=== PATIENT | female | born 1990 | race Hispanic/Latino ===

== ENCOUNTER 2018-02-02 04:18 | Emergency (ER) | payer BC ==
[2018-02-02 04:18] VITALS: BMI 21.7
[2018-02-02] MEDS ORDERED: Iohexol 240 (50 ml) ONE (05:05)
[2018-02-02] MEDS ORDERED: Morphine 4 mg/ml ISec IVP STA (05:23)
[2018-02-02] MEDS ORDERED: Morphine 4 mg/ml ISec ONE (05:23)
[2018-02-02 05:24] LABS: ALB/GLOB RATIO 1.4 (1.1-1.8); ALBUMIN 4.3 g/dL (3.0-4.8); ALT/SGPT 24 U/L (7-56); AST/SGOT 20 U/L (14-36); BASO # 0.01 K/mm3 (0.0-2.0); BASO % 0.4 % (0.0-3.0); BLOOD UREA NITROGEN 16 mg/dL (7-21); CALCIUM 9.4 mg/dL (8.4-10.5); EOS # 0.1 (0.0-0.7); EOS % 1.8 % (1.5-5.0); GFR AFRICAN-AMERICAN > 60; GFR NON-AFRICAN AMERICAN > 60; GRAN # 0.56 (1.4-6.5); GRAN % 19.7 % (50.0-68.0); HEMOGLOBIN 10.4 g/dL (12.0-16.0); LIPASE 42 U/L (23-300); LYMPH % 71.7 % (22.0-35.0); MEAN CELL VOLUME 66.6 fl (80.0-105.0); MEAN CORPUSCULAR HEMOGLOBIN 20.6 pg (25.0-35.0); MEAN CORPUSCULAR HGB CONC 30.9 g/dl (31.0-37.0); MONO # 0.2 (0.1-0.6); MONO % 6.4 % (1.0-6.0); PLATELET COUNT 165 10^3/uL (120.0-450.0); RBC 5.06 10^6/uL (3.5-6.1); RED CELL DISTRIBUTION WIDTH 16.8 % (11.5-14.5)
[2018-02-02 05:31] LABS: INR 1.07 (0.93-1.08); PROTHROMBIN TIME 12.3 SECONDS (9.4-12.5)
[2018-02-02 05:43] LABS: WHITE BLOOD COUNT 2.8 10^3/ul (4.5-11.0)
[2018-02-02] MEDS ORDERED: HYDROmorphone 1 mg/ml ISec IVP STA (06:38)
--- NOTE | 2018-02-02 06:52 | ED PDOC ---
Arrival/HPI - General Chief Complaint: Abdominal Pain Time Seen by Provider: 02/02/18 04:29 Historian: Patient - History of Present Illness Narrative History of Present Illness (Text): 02/02/18 06:52 27 year old female, whose past medical hsitory includes colon cancer s/p colectomy, FAP, intra-abdominal abscess, and anemia, presents to the emergency department complaining of having abdominal pain that began 4 days ago. Patient reports the pain has worsen yesterday and today. Patient also reports feeling gassy, but denies passing any gas. Patient has a normal bowel movement. Patient denies any fever, chills, chest pain, shortness of breath, nausea, vomiting, diarrhea, urinary symptoms, back pain, neck pain, headache, dizziness, or any other complaints. 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 - Pulmonary Hx Respiratory Disorders: No - Neurological Hx Neurological Disorder: No - HEENT Hx HEENT Disorder: No (WEARS RX GLASSES) - Renal Hx Renal Disorder: No - Endocrine/Metabolic Hx Endocrine Disorders: No - Hematological/Oncological Hx Blood Disorders: Yes Hx Anemia: Yes Hx Cancer: Yes (Colon Cancer) Hx Chemotherapy: Yes (PO) - Integumentary Hx Dermatological Disorder: Yes (SCAR MID ABDOMEN SX) - Musculoskeletal/Rheumatological Hx Falls: No - Gastrointestinal Hx Gastrointestinal Disorders: Yes Hx Colostomy: Yes Other/Comment: Gastritis - Genitourinary/Gynecological Hx Genitourinary Disorders: No - Psychiatric Hx Emotional Abuse: No Hx Physical Abuse: No Hx Substance Use: No - Surgical History Hx Appendectomy: Yes Other/Comment: Colostomy - Anesthesia Hx Anesthesia Reactions: No Hx Malignant Hyperthermia: No - Suicidal Assessment Feels Threatened In Home Enviroment: No Family/Social History - Physician Review Nursing Documentation Reviewed: Yes Family/Social History: No Known Family HX Smoking Status: Never Smoked Hx Alcohol Use: No Hx Substance Use: No Hx Substance Use Treatment: No Allergies/Home Meds Allergies/Adverse Reactions: Allergies No Known Allergies Allergy (Verified 05/26/16 14:18) Review of Systems - Physician Review All systems were reviewed & negative as marked: Yes - Review of Systems Constitutional: absent: Fevers, Other (Chills) Respiratory: absent: SOB Cardiovascular: absent: Chest Pain Gastrointestinal: Abdominal Pain, Other (not passing gas). absent: Stool Changes, Diarrhea, Nausea, Vomiting Genitourinary Female: absent: Dysuria, Frequency, Hematuria Musculoskeletal: absent: Back Pain, Neck Pain Neurological: absent: Headache, Dizziness Physical Exam Vital Signs Reviewed: Yes Vital Signs Temp Pulse Resp BP Pulse Ox 02/02/18 04:35 98.2 F 89 18 111/69 100 Temperature: Afebrile Blood Pressure: Normal Pulse: Regular Respiratory Rate: Normal Appearance: Positive for: Well-Appearing, Non-Toxic, Comfortable Pain Distress: None Mental Status: Positive for: Alert and Oriented X 3 - Systems Exam Head: Present: Atraumatic, Normocephalic Pupils: Present: PERRL Extroacular Muscles: Present: EOMI Conjunctiva: Present: Normal Mouth: Present: Moist Mucous Membranes Neck: Present: Normal Range of Motion Respiratory/Chest: Present: Clear to Auscultation, Good Air Exchange. No: Respiratory Distress, Accessory Muscle Use Cardiovascular: Present: Regular Rate and Rhythm, Normal S1, S2. No: Murmurs Abdomen: No: Tenderness, Distention, Peritoneal Signs Back: Present: Normal Inspection Upper Extremity: Present: Normal Inspection. No: Cyanosis, Edema Lower Extremity: Present: Normal Inspection. No: Edema Neurological: Present: GCS=15, CN II-XII Intact, Speech Normal Skin: Present: Warm, Dry, Normal Color. No: Rashes Psychiatric: Present: Alert, Oriented x 3, Normal Insight, Normal Concentration Medical Decision Making ED Course and Treatment: 02/02/18 06:56 Impression: 27 year old female presents complaining of worsening abdominal pain that began 4 days ago. Patient reports not passing any gas, but normal bowel movements. Plan: -- CT Abd Pelvis PO & IV Contrast -- Labs -- Morphine, Zofran, Dilaudid -- Urine CUlture -- Urinalysis -- Reassess and disposition Progress Notes: 02/02/18 06:58 Case signed out to Dr. Adorno pending CT Abd Pelvis, reassessment and disposition. - Lab Interpretations Lab Results: 02/02/18 04:53 02/02/18 04:53 Lab Results 02/02/18 04:53: Sodium 145, Potassium 4.0, Chloride 106, Carbon Dioxide 26, Anion Gap 17, BUN 16, Creatinine 0.7, Est GFR ( Amer) > 60, Est GFR (Non- Af Amer) > 60, Random Glucose 98, Calcium 9.4, Total Bilirubin 0.3, AST 20, ALT 24, Alkaline Phosphatase 43, Total Protein 7.4, Albumin 4.3, Globulin 3.1, Albumin/Globulin Ratio 1.4, Lipase 42 02/02/18 04:53: PT 12.3, INR 1.07 02/02/18 04:53: WBC 2.8 L* D, RBC 5.06, Hgb 10.4 L, Hct 33.7 L, MCV 66.6 L, MCH 20.6 L, MCHC 30.9 L, RDW 16.8 H, Plt Count 165, MPV 10.0, Gran % 19.7 L, Lymph % (Auto) 71.7 H, [place] % (Auto) 6.4 H, Eos % (Auto) 1.8, Baso % (Auto) 0.4, Gran # 0.56 L, Lymph # (Auto) 2.0, [place] # (Auto) 0.2, Eos # (Auto) 0.1, Baso # (Auto ) 0.01, Neutrophils % (Manual) Pending, Lymphocytes % (Manual) Pending, Monocytes % (Manual) Pending - RAD Interpretation Radiology Orders: 02/02/18 04:45 ABD PELVIS PO & IV CONTRAST [CT] Stat - Medication Orders Current Medication Orders: Discontinued Medications Hydromorphone HCl (Dilaudid) 1 mg IVP STAT STA Stop: 02/02/18 06:39 Morphine Sulfate (Morphine) 4 mg IVP STAT STA Stop: 02/02/18 05:24 Last Admin: 02/02/18 05:31 Dose: 4 mg MAR Pain Assessment Document 02/02/18 05:31 SS (Rec: 02/02/18 05:32 SS [id number]) Pain Reassessment Is this a pain reassessment? Yes Sleep Is patient sleeping during reassessment? No Presence of Pain Presence of Pain Yes Location Upper or Lower Upper Pain Location Body Site Abdomen Description Description Constant Intensity of Pain at present 8 Pain Behavior Moaning Grasping Site Rubbing Site Restlessness IVP Administration Document 02/02/18 05:31 SS (Rec: 02/02/18 05:32 SS [id number]) Charges for Administration # of IVP Administrations 1 Ondansetron HCl (Zofran Inj) 4 mg IVP STAT STA Stop: 02/02/18 05:24 Last Admin: 02/02/18 05:31 Dose: 4 mg IVP Administration Document 02/02/18 05:31 SS (Rec: 02/02/18 05:31 SS [id number]) Charges for Administration # of IVP Administrations 1 Ondansetron HCl (Zofran Inj) 4 mg IVP STAT STA Stop: 02/02/18 06:39 - Scribe Statement The provider has reviewed the documentation as recorded by the Kwaku Medeiros Provider Scribe Attestation: All medical record entries made by the Scribe were at my direction and personally dictated by me. I have reviewed the chart and agree that the record accurately reflects my personal performance of the history, physical exam, medical decision making, and the department course for this patient. I have also personally directed, reviewed, and agree with the discharge instructions and disposition. Disposition/Present on Arrival - Present on Arrival History of DVT/PE: No History of Uncontrolled Diabetes: No Urinary Catheter: No History of Decub. Ulcer: No History Surgical Site Infection Following: None - Disposition Referrals: Mike Strauss MD [Primary Care Provider] - Follow up with primary Forms: [employer] (South Korean)
[2018-02-02] MEDS ORDERED: Sodium Chloride 0.9% 1,000 ML IV STA (07:03)
--- NOTE | 2018-02-02 07:19 | ED PDOC ---
Physical Exam - Physical Exam Narrative Physical Exam (Text): 02/02/18 09:11 General: alert/awake, GCS = 15, oriented x 3, resting in bed, uncomfortable, cooperative, interactive; mild distress due to pain Head: NC/AT EYE: PERRLA, EOMI, sclera anicteric, no nystagmus, no photophobia; wearing eyeglasses Facial: WNL Oral: uvula/tongue are midline, no exudate/lesions, no drooling/stridor, no dysphonia; intact dentitions NECK: intact ROM, no midline tenderness, no nuchal rigidity, no meningeal signs ; no step off Chest: CTA b/l, no w/r/r; no tachypenia, no accessory muscle use noted Cardiac: +S1, +S2, no m/r/r, no tachycardia Abdominal: +BS, soft/nd, diffuse mid abd tenderness, well nourished patient; no masses/rebound/guarding/rigidity; no almaraz's sign, no mcburney's point tenderness Extremities: intact ROM, strength 5/5 grossly intact in all limbs, neurovasc intact b/l; + ambulatory; reflex +2/2 BACK: no step off, no midline tenderness, NO crepitus, no gross deformities noted; Intact ROM SKIN: cap refill < 1 sec, no ulcerations, no petechiae, no rashes NEURO: CNII-XII WNL, no facial asymmetries, no slurr speech, oriented x 3 NIH stroke scale ~ 0 Psych: normal insight, normal affect; follows command with ease Vital Signs Reviewed: Yes Vital Signs Temp Pulse Resp BP Pulse Ox 02/02/18 11:56 78 20 98/40 L 99 02/02/18 07:28 98.3 F 70 20 100/68 100 02/02/18 04:35 98.2 F 89 18 111/69 100 Temperature: Afebrile Blood Pressure: Normal Pulse: Regular Respiratory Rate: Normal Appearance: Positive for: Well-Appearing, Non-Toxic, Uncomfortable Pain Distress: None Mental Status: Positive for: Alert and Oriented X 3 Medical Decision Making ED Course and Treatment: 02/02/18 07:18 Patient endorsed to me by Dr. Barksdale at 07:00, pending CT results, reassessment and disposition; pt can be dispositioned accordingly 1030am: pt is doing well, pt states dilaudid helped her with her pain, pain is now 12/1202/02/18 1155am: pt remains comfortable pt is not acute distress given pt's improved symptoms, pt is given option for possible admission for intractable abd pain or pt can be discharged home with close outpt follow up; pt opted for the later and states would prefer to be discharged home 02/02/18 1300 pt remained comfortable pt is not in any distress pt is made aware of her medical results pt is encouraged fluids pt is encouraged bland diet pt will follow up as directed pt will be discharged home Re-evaluation Time: 10:30 Reassessment Condition: Improving,but remains with symptoms - Lab Interpretations Lab Results: 02/02/18 04:53 02/02/18 04:53 Lab Results 02/02/18 04:53: Sodium 145, Potassium 4.0, Chloride 106, Carbon Dioxide 26, Anion Gap 17, BUN 16, Creatinine 0.7, Est GFR ( Amer) > 60, Est GFR (Non- Af Amer) > 60, Random Glucose 98, Calcium 9.4, Total Bilirubin 0.3, AST 20, ALT 24, Alkaline Phosphatase 43, Total Protein 7.4, Albumin 4.3, Globulin 3.1, Albumin/Globulin Ratio 1.4, Lipase 42 02/02/18 04:53: PT 12.3, INR 1.07 02/02/18 04:53: WBC 2.8 L* D, RBC 5.06, Hgb 10.4 L, Hct 33.7 L, MCV 66.6 L, MCH 20.6 L, MCHC 30.9 L, RDW 16.8 H, Plt Count 165, MPV 10.0, Gran % 19.7 L, Lymph % (Auto) 71.7 H, [place] % (Auto) 6.4 H, Eos % (Auto) 1.8, Baso % (Auto) 0.4, Gran # 0.56 L, Lymph # (Auto) 2.0, [place] # (Auto) 0.2, Eos # (Auto) 0.1, Baso # (Auto ) 0.01, Neutrophils % (Manual) 20 L, Lymphocytes % (Manual) 72 H, Monocytes % ( Manual) 7 H, Basophils % (Manual) 1, Platelet Evaluation Normal, Poikilocytosis (manual Slight, Anisocytosis (manual) Slight, Schistocytes Slight I have reviewed the lab results: Yes Interpretation: Abnormal lab values (decr WBCs) - RAD Interpretation Narrative RAD Interpretations (Text): Report Date : 02/02/2018 09:44:39 PROCEDURE: CT Abdomen and Pelvis with contrast Dictator : Augusto Herrera MD IMPRESSION: There has been a previous colectomy. Suture lines are seen in the rectosigmoid. There is a moderate amount of fecal material in the rectum. Fluid collections are seen on the left side of the pelvis measuring 2.3 x 4 cm and 1.6 x 2 cm. These were also present on the previous study. These have slightly increased in size. Radiology Orders: 02/02/18 08:19 ABD & PELVIS IV CONTRAST ONLY [CT] Stat Cupola Tapper Helper: Radiologist - Medication Orders Current Medication Orders: Discontinued Medications Hydromorphone HCl (Dilaudid) 1 mg IVP STAT STA Stop: 02/02/18 06:39 Last Admin: 02/02/18 08:03 Dose: 1 mg MAR Pain Assessment Document 02/02/18 08:03 [email or web address] (Rec: 02/02/18 08:03 [email or web address] [id number]) Pain Reassessment Is this a pain reassessment? No Sleep Is patient sleeping during reassessment? No Presence of Pain Presence of Pain Yes Pain Scale Used Pain Scale Used Numeric Location Pain Location Body Site Abdomen Description Description Constant Intensity of Pain at present 8 Pain Behavior Facial Grimacing Aggravating Factors Changing Position Alleviating Factors/Management Medication Techniques Alleviating Factors Medication IVP Administration Document 02/02/18 08:03 [email or web address] (Rec: 02/02/18 08:03 [email or web address] [id number]) Charges for Administration # of IVP Administrations 1 Hydromorphone HCl (Dilaudid) 0.5 mg IVP STAT STA Stop: 02/02/18 10:46 Last Admin: 02/02/18 11:59 Dose: 0.5 mg MAR Pain Assessment Document 02/02/18 11:59 [email or web address] (Rec: 02/02/18 12:00 [email or web address] [id number]) Pain Reassessment Is this a pain reassessment? No Sleep Is patient sleeping during reassessment? No Presence of Pain Presence of Pain Yes Pain Scale Used Pain Scale Used Numeric Location Pain Location Body Site Abdomen Description Description Constant Intensity of Pain at present 8 Pain Behavior Facial Grimacing Aggravating Factors Changing Position Alleviating Factors/Management Medication Techniques Alleviating Factors Medication IVP Administration Document 02/02/18 11:59 [email or web address] (Rec: 02/02/18 12:00 [email or web address] [id number]) Charges for Administration # of IVP Administrations 1 Sodium Chloride (Sodium Chloride 0.9%) 1,000 mls @ 999 mls/hr IV .Q1H1M STA Stop: 02/02/18 08:03 Last Admin: 02/02/18 07:11 Dose: 999 mls/hr eMAR Start Stop Document 02/02/18 07:11 SS (Rec: 02/02/18 07:11 SS [facility] [id number]) Intravenous Solution Start Date 02/02/18 Start Time 07:11 End Date 02/02/18 End time 08:11 Total Infusion Time 60 Morphine Sulfate (Morphine) 4 mg IVP STAT STA Stop: 02/02/18 05:24 Last Admin: 02/02/18 05:31 Dose: 4 mg MAR Pain Assessment Document 02/02/18 05:31 SS (Rec: 02/02/18 05:32 SS [id number]) Pain Reassessment Is this a pain reassessment? Yes Sleep Is patient sleeping during reassessment? No Presence of Pain Presence of Pain Yes Location Upper or Lower Upper Pain Location Body Site Abdomen Description Description Constant Intensity of Pain at present 8 Pain Behavior Moaning Grasping Site Rubbing Site Restlessness IVP Administration Document 02/02/18 05:31 SS (Rec: 02/02/18 05:32 SS [id number]) Charges for Administration # of IVP Administrations 1 Ondansetron HCl (Zofran Inj) 4 mg IVP STAT STA Stop: 02/02/18 05:24 Last Admin: 02/02/18 05:31 Dose: 4 mg IVP Administration Document 02/02/18 05:31 SS (Rec: 02/02/18 05:31 SS [id number]) Charges for Administration # of IVP Administrations 1 Ondansetron HCl (Zofran Inj) 4 mg IVP STAT STA Stop: 02/02/18 06:39 Last Admin: 02/02/18 07:11 Dose: 4 mg IVP Administration Document 02/02/18 07:11 SS (Rec: 02/02/18 07:11 SS [facility] [id number]) Charges for Administration # of IVP Administrations 1 - Scribe Statement The provider has reviewed the documentation as recorded by the Janaeibdelvin Esp[place] Provider Scribe Attestation: All medical record entries made by the Scribe were at my direction and personally dictated by me. I have reviewed the chart and agree that the record accurately reflects my personal performance of the history, physical exam, medical decision making, and the department course for this patient. I have also personally directed, reviewed, and agree with the discharge instructions and disposition. Disposition/Present on Arrival - Present on Arrival Any Indicators Present on Arrival: No History of DVT/PE: No History of Uncontrolled Diabetes: No Urinary Catheter: No History of Decub. Ulcer: No History Surgical Site Infection Following: None - Disposition Have Diagnosis and Disposition been Completed?: Yes Diagnosis: Abdominal pain, Constipation Disposition: HOME/ ROUTINE Disposition Time: 13:05 Patient Plan: Discharge Patient Problems: Current Active Problems Problem Status Onset Constipation Acute Abdominal pain Chronic Condition: STABLE Discharge Instructions (ExitCare): Constipation in Adults, Acute Abdomen ( Belly Pain) Print Language: AZERI Additional Instructions: Make sure to see your doctor in 1-2 days DRINK PLENTY OF FLUIDS take your medications as prescribed RETURN TO ED IF worse pain, cant breath, persistent vomiting, high fever >101- 102 for hours, altered behavior, slurr speech, facial changes, focal weakness ( arm/leg or both), unable to urinate, heavy/persistent bleeding, passing out, chest pain, or other medical emergencies Prescriptions: Ondansetron ODT [Zofran ODT] 4 mg PO TID PRN #10 odt PRN Reason: Nausea/Vomiting Sennosides/Docusate Sodium [Senna-S Tablet] 1 each PO DAILY PRN #14 tablet PRN Reason: Constipation [facility]: [facility] [[facility]] - Follow up with primary [facility] [Outside] - Follow up with primary [facility] [place] [Outside] - Follow up with primary Mike Strauss MD [Primary Care Provider] - Follow up with primary Branden Chung MD [Staff Provider] - Follow up with primary Forms: [employer] (Gambian)
[2018-02-02 07:29] VITALS: TEMP 98.3
[2018-02-02 07:49] LABS: BASOPHIL 1 % (0.0-1.0); LYMPHOCYTE 72 % (22.0-35.0); MONOCYTE 7 % (1.0-6.0); NEUTROPHIL 20 % (50.0-70.0)
[2018-02-02 07:50] LABS: PLATELET ESTIMATE NORMAL (NORMAL); POIKILOCYTOSIS SLIGHT
[2018-02-02 07:51] LABS: ANISOCYTOSIS SLIGHT; SCHISTOCYTES SLIGHT
[2018-02-02] MEDS ORDERED: Iohexol 350 MG/100 ML VIAL ONE (08:33)
--- NOTE | 2018-02-02 09:46 | CT ---
PROCEDURE: CT Abdomen and Pelvis with contrast HISTORY: mid/left lower abd pain, hx of similiar pain COMPARISON: 06/01/2016 CT TECHNIQUE: Contrast dose: 358 Radiation dose: Total exam DLP = 100 cc of Omni 350 mGy-cm. This CT exam was performed using one or more of the following dose reduction techniques: Automated exposure control, adjustment of the mA and/or kV according to patient size, and/or use of iterative reconstruction technique. FINDINGS: LOWER THORAX: Unremarkable. LIVER: Unremarkable. No gross lesion or ductal dilatation. GALLBLADDER AND BILE DUCTS: Unremarkable. PANCREAS: Unremarkable. No gross lesion or ductal dilatation. SPLEEN: Unremarkable. ADRENALS: Unremarkable. No mass. KIDNEYS AND URETERS: Unremarkable. No hydronephrosis. No solid mass. VASCULATURE: Unremarkable. No aortic aneurysm. BOWEL: There has been a previous colectomy. Suture lines are seen in the rectosigmoid. There is a moderate amount of fecal material in the rectum. Fluid collections are seen on the left side of the pelvis measuring 2.3 x 4 cm and 1.6 x 2 cm. These were also present on the previous study. These have slightly increased in size. APPENDIX: Normal appendix. PERITONEUM: Unremarkable. No free fluid. No free air. LYMPH NODES: Unremarkable. No enlarged lymph nodes. BLADDER: Unremarkable. REPRODUCTIVE: Unremarkable. BONES: No acute fracture. OTHER FINDINGS: None. IMPRESSION: There has been a previous colectomy. Suture lines are seen in the rectosigmoid. There is a moderate amount of fecal material in the rectum. Fluid collections are seen on the left side of the pelvis measuring 2.3 x 4 cm and 1.6 x 2 cm. These were also present on the previous study. These have slightly increased in size.
[2018-02-02] MEDS ORDERED: HYDROmorphone 0.5 mg/0.5 ml ISec IVP STA (10:45)
[2018-02-02 13:49] VITALS: BP 99/50; PULSE 79; RESP 18; O2SAT 97
== END 2018-02-02 13:49 | disposition home or self-care (01) ==
LOC: ED 04:18
DX: K59.00 Constipation, unspecified (principal); R10.9 Unspecified abdominal pain; D64.9 Anemia, unspecified; Z85.038 Personal history of other malignant neoplasm of large intestine; Z90.49 Acquired absence of other specified parts of digestive tract
CPT/HCPCS: 74177; 80053; 83690; 85025; 85610; 96361; 96374; 96375; 96376; 99284; J1170; J2270; J2405; J7030; Q9966; Q9967

== ENCOUNTER 2018-03-10 15:19 | Inpatient (IN) | payer BC ==
--- NOTE | 2018-03-10 16:00 | ED PDOC ---
Arrival/HPI - General Chief Complaint: Shortness Of Breath Time Seen by Provider: 03/10/18 15:23 Historian: Patient - History of Present Illness Narrative History of Present Illness (Text): 03/10/18 15:49 Pt is a 27 year old female, with PMH of colon cancer s/p colectomy (2011), FAP, intra-abdominal abscess, and anemia, who presents to the ED c/o of chest pain and cough after a possible aspiration of vomit while intubated for a procedure at [facility] 5 days ago. She had a sigmoidoscopy and dilation of a an anastamosis. Pt states she was monitored during her stay at [facility] until Monday and reports feeling better until last night. Says she now has coughing spells that make it hard for her to breath. Father is a local president consumer electronics company who auscultated her lungs and advised her to go to ED. Pt feels chilled and warmer than normal, has associated chest pain that starts retrosternal and refers down to epigastrium. Denies vomiting, urinary symptoms, neck pain, dizziness, or any other complaints. . 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 - Pulmonary Hx Respiratory Disorders: No - Neurological Hx Neurological Disorder: No - HEENT Hx HEENT Disorder: No (WEARS RX GLASSES) - Renal Hx Renal Disorder: No - Endocrine/Metabolic Hx Endocrine Disorders: No - Hematological/Oncological Hx Blood Disorders: Yes Hx Anemia: Yes Hx Cancer: Yes (Colon Cancer) Hx Chemotherapy: Yes (PO) - Integumentary Hx Dermatological Disorder: Yes (SCAR MID ABDOMEN SX) - Musculoskeletal/Rheumatological Hx Falls: No - Gastrointestinal Hx Gastrointestinal Disorders: Yes Hx Colostomy: Yes Other/Comment: Gastritis - Genitourinary/Gynecological Hx Genitourinary Disorders: No - Psychiatric Hx Emotional Abuse: No Hx Physical Abuse: No Hx Substance Use: No - Surgical History Hx Appendectomy: Yes Other/Comment: Colostomy - Anesthesia Hx Anesthesia Reactions: No Hx Malignant Hyperthermia: No - Suicidal Assessment Feels Threatened In Home Enviroment: No Family/Social History - Physician Review Nursing Documentation Reviewed: Yes Family/Social History: Unknown Family HX Smoking Status: Never Smoked Hx Alcohol Use: No Hx Substance Use: No Hx Substance Use Treatment: No Allergies/Home Meds Allergies/Adverse Reactions: Allergies No Known Allergies Allergy (Verified 03/10/18 21:49) Review of Systems - Review of Systems Constitutional: Normal, Fevers Eyes: Normal ENT: Normal Respiratory: Normal, SOB, Cough, Wheezing Cardiovascular: Normal, Chest Pain. absent: Palpitations Gastrointestinal: Normal. absent: Abdominal Pain Genitourinary Female: Normal. absent: Dysuria, Frequency, Hematuria Musculoskeletal: Normal, Back Pain. absent: Arthralgias Skin: Normal. absent: Rash Neurological: Normal Endocrine: Normal Hemo/Lymphatic: Normal Psychiatric: Normal Physical Exam Vital Signs Reviewed: Yes Vital Signs Temp Pulse Resp BP Pulse Ox 03/10/18 22:21 99.8 F H 83 17 98/59 L 03/10/18 21:21 83 17 98/59 L 98 03/10/18 17:20 87 18 113/71 97 03/10/18 15:36 99.8 F H 102 H 20 99/61 L 100 03/10/18 15:30 99 Temperature: Afebrile Blood Pressure: Hypotensive Pulse: Tachycardic Respiratory Rate: Normal Appearance: Positive for: Non-Toxic, Uncomfortable Pain Distress: Moderate Mental Status: Positive for: Alert and Oriented X 3 - Systems Exam Head: Present: Atraumatic, Normocephalic Pupils: Present: PERRL Extroacular Muscles: Present: EOMI Conjunctiva: Present: Normal Mouth: Present: Moist Mucous Membranes Neck: Present: Normal Range of Motion Respiratory/Chest: Present: Clear to Auscultation, Good Air Exchange, Wheezes, Rhonchi. No: Respiratory Distress, Accessory Muscle Use Cardiovascular: Present: Regular Rate and Rhythm, Normal S1, S2. No: Murmurs Abdomen: No: Tenderness, Distention, Peritoneal Signs Back: Present: Normal Inspection Upper Extremity: Present: Normal Inspection, Normal ROM, NORMAL PULSES. No: Cyanosis, Edema Lower Extremity: Present: Normal Inspection. No: Edema Neurological: Present: GCS=15, CN II-XII Intact, Speech Normal Skin: Present: Warm, Dry, Normal Color. No: Rashes, Diaphoretic Psychiatric: Present: Alert, Oriented x 3, Normal Insight, Normal Concentration Medical Decision Making ED Course and Treatment: 03/10/18 16:00 Impression Pt is a 27 year old female, with PMH of colon cancer s/p colectomy (2011), FAP, intra-abdominal abscess, and anemia, who presents to the ED c/o of chest pain and cough after a possible aspiration of vomit while intubated for a procedure at [facility] 5 days ago. Working Dx: aspiration PNA, PE, CA metastasis Plan labs and UA coags d-dimer CXR O2 assess and dispo Progress Note 03/10/18 16:13 d-dimer positive at 599 labs wnl (similar to last ED visit) CTA ordered however unable to get IV line; ordered changed to V/Q scan Will contact hospitalist after scan done to admit for Dr Carlos A gamble and dilaudid .5 mg ivp stat for pain and nausea V/Q scan negative for PE Pt c/o of pain around costal margin bilateral 03/10/18 21:04 Discussed case with hospital resident and Dr Alan; admit under hospitalist, dr Wallace to med/surg for aspiration pna and pleuritic pain - Lab Interpretations Lab Results: 03/10/18 16:28 03/10/18 16:28 Lab Results 03/10/18 18:05: Urine Color Yellow, Urine Appearance Clear, Urine pH 8.5, Ur Specific Wing[place] 1.010, Urine Protein Negative, Urine Glucose (UA) Negative, Urine Ketones Negative, Urine Blood Negative, Urine Nitrate Negative, Urine Bilirubin Negative, Urine Urobilinogen 1.0 H, Ur Leukocyte Esterase Negative 03/10/18 17:05: Lactate Dehydrogenase 352, Total Creatine Kinase < 20 L, Troponin I < 0.01 03/10/18 16:28: Sodium 140, Chloride 100, Potassium 4.3, Carbon Dioxide 27, Anion Gap 17, BUN 8, Creatinine 0.7, Est GFR ( Amer) > 60, Est GFR (Non- Af Amer) > 60, Random Glucose 91, Calcium 9.8, Phosphorus 4.2, Magnesium 1.8, Total Bilirubin 0.9, AST 15, ALT 21, Alkaline Phosphatase 55, Total Protein 8.1 , Albumin 4.2, Globulin 3.8, Albumin/Globulin Ratio 1.1 03/10/18 16:28: pO2 55, VBG pH 7.39, VBG pCO2 52.0, VBG HCO3 31.5 H, VBG Total CO2 33.1 H, VBG O2 Sat (Calc) 89.2 H, VBG Base Excess 5.2 H, VBG Potassium 4.3, Sodium 138.0, Chloride 104.0, Glucose 89, Lactate 1.1, FiO2 21.0, Venous Blood Potassium 4.3 03/10/18 16:28: PT 13.7 H, INR 1.20 H, APTT 33.5, D-Dimer, Quantitative 599 H 03/10/18 16:28: WBC 3.0 L, RBC 4.67, Hgb 10.7 L, Hct 33.2 L, MCV 71.1 L D, MCH 22.9 L, MCHC 32.2, RDW 20.7 H, Plt Count 211, MPV 9.9, Gran % 48.2 L, Lymph % ( Auto) 41.9 H, Bulloch % (Auto) 6.6 H, Eos % (Auto) 3.0, Baso % (Auto) 0.3, Gran # 1.45, Lymph # (Auto) 1.3, Bulloch # (Auto) 0.2, Eos # (Auto) 0.1, Baso # (Auto) 0.01 I have reviewed the lab results: Yes (d-dimer 599) Interpretation: Abnormal lab values - RAD Interpretation Narrative RAD Interpretations (Text): 03/10/18 18:26 HISTORY: Wheezing COMPARISON: 02/25/2014 TECHNIQUE: Chest PA and lateral FINDINGS: LUNGS: No active pulmonary disease. PLEURA: No significant pleural effusion identified. No pneumothorax apparent. CARDIOVASCULAR: Normal. OSSEOUS STRUCTURES: No significant abnormalities. VISUALIZED UPPER ABDOMEN: Normal. OTHER FINDINGS: None. IMPRESSION: No active disease. No significant interval change compared to the prior examination(s). 03/10/18 20:38 EXAM: NM Lung Perfusion and Ventilation Scan CLINICAL HISTORY: 27 years old, female; Pain; Chest pain; On breathing; Additional info: R/O pe TECHNIQUE: Nuclear Medicine ventilation and perfusion images of the lungs were obtained in multiple projections following radiopharmaceutical inhalation followed by injection of Tc99m MAA. COMPARISON: DX - CHEST TWO VIEWS (PA/LAT) 2018-03-10 16:53 FINDINGS: Ventilation: Accumulation of tracer centrally consistent with artifact. No ventilation defects. Perfusion: Unremarkable. No perfusion defects. IMPRESSION: No acute findings or significant abnormalities to suggest PE. Low probability study. Radiology Orders: 03/10/18 16:04 CXR [CHEST TWO VIEWS (PA/LAT)] [RAD] Stat 03/10/18 17:50 LUNG PERF & VENT SCAN [NM] Stat - EKG Interpretation Interpreted by ED Physician: Yes (NSR with no ST-or T-wave abnormailties; Rate 95) - Medication Orders Current Medication Orders: Albuterol/Ipratropium (Duoneb 3 Mg/0.5 Mg (3 Ml) Ud) 3 ml IH Q2H PRN PRN Reason: Shortness of Breath Albuterol/Ipratropium (Duoneb 3 Mg/0.5 Mg (3 Ml) Ud) 3 ml IH [id number] EKTA Enoxaparin Sodium (Lovenox) 40 mg SC DAILY EKTA PRN Reason: Protocol Guaifenesin/Codeine Phosphate (Robitussin W/Codeine) 5 ml PO Q4H PRN PRN Reason: Cough and congestion Azithromycin 250 mg/ Sodium (Chloride) 250 mls @ 167 mls/hr IVPB DAILY EKTA PRN Reason: Protocol Last Admin: 03/10/18 22:30 Dose: 167 mls/hr eMAR Start Stop Document 03/10/18 22:30 IT (Rec: 03/10/18 22:30 IT [id number]) Intravenous Solution Start Date 03/10/18 Start Time 22:30 Ondansetron HCl (Zofran Inj) 4 mg IVP Q6H PRN PRN Reason: Nausea/Vomiting Pantoprazole Sodium (Protonix Ec Tab) 40 mg PO 0600 EKTA Discontinued Medications Hydromorphone HCl (Dilaudid) 0.5 mg IVP STAT STA Stop: 03/10/18 18:25 Last Admin: 03/10/18 18:41 Dose: 0.5 mg MAR Pain Assessment Document 03/10/18 18:41 EWO (Rec: 03/10/18 18:41 EWO [id number]) Pain Reassessment Is this a pain reassessment? No Sleep Is patient sleeping during reassessment? No Presence of Pain Presence of Pain Yes Pain Scale Used Pain Scale Used Numeric IVP Administration Document 03/10/18 18:41 EWO (Rec: 03/10/18 18:41 EWO [id number]) Charges for Administration # of IVP Administrations 1 Hydromorphone HCl (Dilaudid) 0.5 mg IVP STAT STA Stop: 03/10/18 21:14 Last Admin: 03/10/18 22:04 Dose: 0.5 mg MAR Pain Assessment Document 03/10/18 22:04 IT (Rec: 03/10/18 22:04 IT [id number]) Pain Reassessment Is this a pain reassessment? No Sleep Is patient sleeping during reassessment? No Presence of Pain Presence of Pain Yes Pain Scale Used Pain Scale Used Numeric IVP Administration Document 03/10/18 22:04 IT (Rec: 03/10/18 22:04 IT [id number]) Charges for Administration # of IVP Administrations 1 Piperacillin Sod/Tazobactam Sod (Zosyn 3.375 In Ns 100ml) 100 mls @ 200 mls/hr IVPB STAT STA PRN Reason: Protocol Stop: 03/10/18 17:59 Last Admin: 03/10/18 18:11 Dose: 200 mls/hr eMAR Start Stop Document 03/10/18 18:11 EWO (Rec: 03/10/18 18:12 EWO [id number]) Intravenous Solution Start Date 03/10/18 Start Time 18:12 End Date 03/10/18 End time 18:42 Total Infusion Time 30 Sodium Chloride (Sodium Chloride 0.9%) 500 mls @ 999 mls/hr IV .Q31M STA Stop: 03/10/18 19:13 Last Admin: 03/10/18 20:36 Dose: 999 mls/hr eMAR Start Stop Document 03/10/18 20:36 IT (Rec: 03/10/18 20:37 IT [id number]) Intravenous Solution Start Date 03/10/18 Start Time 20:37 Ondansetron HCl (Zofran Inj) 4 mg IVP STAT STA Stop: 03/10/18 18:24 Last Admin: 03/10/18 18:41 Dose: 4 mg IVP Administration Document 03/10/18 18:41 EWO (Rec: 03/10/18 18:41 EWO [id number]) Charges for Administration # of IVP Administrations 1 Ondansetron HCl (Zofran Tab) 4 mg PO Q8H PRN PRN Reason: Nausea/Vomiting Pneumococcal Polyvalent Vaccine (Pneumovax 23 Vaccine) 0.5 ml IM .ONCE ONE Stop: 03/10/18 22:41 Disposition/Present on Arrival - Present on Arrival Any Indicators Present on Arrival: Yes History of DVT/PE: No History of Uncontrolled Diabetes: No Urinary Catheter: No History of Decub. Ulcer: No History Surgical Site Infection Following: None - Disposition Have Diagnosis and Disposition been Completed?: Yes Diagnosis: Aspiration pneumonia due to inhalation of vomitus, Pleuritic chest pain Disposition: HOSPITALIZED Disposition Time: 21:08 Patient Plan: Admission Patient Problems: Current Active Problems Problem Status Onset Aspiration pneumonia due to inhalation of vomitus Acute Pleuritic chest pain Acute Condition: FAIR
[2018-03-10 16:40] LABS: BASO # 0.01 K/mm3 (0.0-2.0); BASO % 0.3 % (0.0-3.0); EOS # 0.1 (0.0-0.7); GRAN # 1.45 (1.4-6.5); GRAN % 48.2 % (50.0-68.0); HEMOGLOBIN 10.7 g/dL (12.0-16.0); LYMPH # 1.3 (1.2-3.4); LYMPH % 41.9 % (22.0-35.0); MEAN CELL VOLUME 71.1 fl (80.0-105.0); MEAN CORPUSCULAR HEMOGLOBIN 22.9 pg (25.0-35.0); MEAN CORPUSCULAR HGB CONC 32.2 g/dl (31.0-37.0); MEAN PLATELET VOLUME 9.9 fl (7.0-11.0); MONO # 0.2 (0.1-0.6); MONO % 6.6 % (1.0-6.0); RBC 4.67 10^6/uL (3.5-6.1); RED CELL DISTRIBUTION WIDTH 20.7 % (11.5-14.5)
[2018-03-10 16:41] LABS: VENOUS BLOOD GAS BASE EXCESS 5.2 mmol/L (0.0-2.0); VENOUS BLOOD GAS PO2 55 mm/Hg (30-55); VENOUS BLOOD PH 7.39 (7.32-7.43)
[2018-03-10 16:49] LABS: INR 1.2 (0.93-1.08); PARTIAL THROMBOPLASTIN TIME 33.5 Seconds (25.1-36.5); PROTHROMBIN TIME 13.7 SECONDS (9.4-12.5)
[2018-03-10 16:55] LABS: ALB/GLOB RATIO 1.1 (1.1-1.8); ALBUMIN 4.2 g/dL (3.0-4.8); ALT/SGPT 21 U/L (7-56); AST/SGOT 15 U/L (14-36); BLOOD UREA NITROGEN 8 mg/dL (7-21); CALCIUM 9.8 mg/dL (8.4-10.5); GFR AFRICAN-AMERICAN > 60; GFR NON-AFRICAN AMERICAN > 60
[2018-03-10] MEDS ORDERED: Piperacillin/Tazobact 3.375 gm 100 ML IVPB STA (17:30)
[2018-03-10 17:38] LABS: TROPONIN I < 0.01 ng/mL
--- NOTE | 2018-03-10 17:49 | RAD ---
HISTORY: Wheezing COMPARISON: 02/25/2014 TECHNIQUE: Chest PA and lateral FINDINGS: LUNGS: No active pulmonary disease. PLEURA: No significant pleural effusion identified. No pneumothorax apparent. CARDIOVASCULAR: Normal. OSSEOUS STRUCTURES: No significant abnormalities. VISUALIZED UPPER ABDOMEN: Normal. OTHER FINDINGS: None. IMPRESSION: No active disease. No significant interval change compared to the prior examination(s).
[2018-03-10 18:23] LABS: PH,URINE 8.5 (4.7-8.0); URINE BILIRUBIN NEGATIVE (NEGATIVE); URINE BLOOD NEGATIVE (NEGATIVE); URINE GLUCOSE (UA) NEGATIVE (NEGATIVE); URINE LEUKOCYTE ESTERASE NEGATIVE Leu/uL (NEGATIVE); URINE PROTEIN NEGATIVE mg/dL (<30 mg/dL)
[2018-03-10 18:24] LABS: URINE APPEARANCE CLEAR (CLEAR); URINE COLOR YELLOW (YELLOW)
[2018-03-10] MEDS ORDERED: HYDROmorphone 0.5 mg/0.5 ml ISec IVP STA ×2 (18:24→21:13)
[2018-03-10] MEDS ORDERED: Sodium Chloride 0.9% 500 ML IV STA (18:43)
[2018-03-10] MEDS ORDERED: guaiFENesin-Codeine 100-10mg/5ml Syrup (5 ml) UD PO PRN (21:49)
[2018-03-10] MEDS ORDERED: Albuterol-Ipratrop 3 mg / 0.5 (3 ml) UD IH PRN (21:49)
[2018-03-10] MEDS ORDERED: Azithromycin 250 MG in Sodium Chloride 0.9% 250 ML IVPB SCH (22:00)
--- NOTE | 2018-03-10 22:24 | CP.PCM.HP ---
<Mati Edmonds - Last Filed: 03/11/18 06:10> History of Present Illness - History of Present Illness History of Present Illness: Mati Edmonds, PGY-1 History and Physical for Hospitalist Service, Dr. Leonides Alan CC: Shortness of Breath HPI: Patient is a 27 year old Female with a past medical history of colon cancer s/p colectomy, Familial Adenomatous Polyposis, and anemia who presented to [place] [facility] with complaints of a painful cough since this morning. The cough is severe and is associated with chest pain, which makes it difficult for her to breathe fully. The pain radiates into her throat and nothing has helped alleviate the pain. Of note, patient was admitted to [facility] last week due to constipation. The patient underwent a colectomy in 2011 and had the reversal of the ileostomy completed in 2013. She has undergone at least 3 previous dilations of her anastamosis at [facility] for bouts of constipation in the past. During the dilation process at [facility] this past week, patient was told "she aspirated while under anesthesia", which caused shortness of breath, wheezing and coughing. At this time, patient admits to nausea, dry heaving, mild shortness of breath, productive green phlegm since this morning, which has not decreased in severity. Patient denies fevers, chills, vision changes, sick contacts, postnasal drip, and watery eyes. 12 point review of systems negative other than stated above. 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, socially drinks FamHx: Mother with FAP, Father with HTN and Parkinsons, maternal grandmother with RA Present on Admission - Present on Admission Any Indicators Present on Admission: No Review of Systems - Review of Systems All systems: reviewed and no additional remarkable complaints except (HPI) 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 - PULMONARY Hx Respiratory Disorders: No - NEUROLOGICAL Hx Neurological Disorder: No - HEENT Hx HEENT Problems: No (WEARS RX GLASSES) - RENAL Hx Chronic Kidney Disease: No - ENDOCRINE/METABOLIC Hx Endocrine Disorders: No - HEMATOLOGICAL/ONCOLOGICAL Hx Blood Disorders: Yes Hx Anemia: Yes Hx Cancer: Yes (Colon Cancer) Hx Chemotherapy: Yes (PO) - INTEGUMENTARY Hx Dermatological Problems: Yes (SCAR MID ABDOMEN SX) - MUSCULOSKELETAL/RHEUMATOLOGICAL Hx Falls: No - GASTROINTESTINAL Hx Gastrointestinal Disorders: Yes Hx Colostomy: Yes Other/Comment: Gastritis - GENITOURINARY/GYNECOLOGICAL Hx Genitourinary Disorders: No - PSYCHIATRIC Hx Emotional Abuse: No Hx Physical Abuse: No Hx Substance Use: No - SURGICAL HISTORY Hx Appendectomy: Yes Other/Comment: Colostomy - ANESTHESIA Hx Anesthesia Reactions: No Hx Malignant Hyperthermia: No Meds Home Medications: Home Medication List Medication Instructions Recorded Confirmed Type Albuterol HFA [Ventolin HFA 90 1 puff IH Q4H #1 inhaler 03/12/18 Rx mcg/actuation (8 g)] Amoxicillin/Clavulanate [Augmentin 1 tab PO Q12 7 Days #14 tab 03/13/18 Rx 875 MG-125 MG] Doxycycline Hyclate 100 mg PO Q12 7 Days #14 cap 03/13/18 Rx Allergies/Adverse Reactions: Allergies Allergy/AdvReac Type Severity Reaction Status Date / Time No Known Allergies Allergy Verified 03/10/18 21:49 Physical Exam - Constitutional Appears: No Acute Distress - Head Exam Head Exam: ATRAUMATIC, NORMOCEPHALIC - Eye Exam Eye Exam: EOMI, PERRL Pupil Exam: NORMAL ACCOMODATION - ENT Exam ENT Exam: Mucous Membranes Moist - Respiratory Exam Respiratory Exam: Clear to Auscultation Bilateral. absent: Rales, Wheezes - Cardiovascular Exam Cardiovascular Exam: Tachycardia, REGULAR RHYTHM, +S1, +S2 - GI/Abdominal Exam GI & Abdominal Exam: Normal Bowel Sounds, Soft, Tenderness. absent: Distended Additional comments: Mild R sided tenderness, Midline incision scar - Extremities Exam Extremities exam: Negative for: calf tenderness, pedal edema - Neurological Exam Neurological exam: Alert, CN II-XII Intact, Oriented x3 - Psychiatric Exam Psychiatric exam: Normal Mood - Skin Skin Exam: Dry, Intact, Warm Results - Vital Signs Recent Vital Signs: Last Vital Signs Temp 99.8 F H 07/07/18 15:36 Pulse 83 03/10/18 21:21 Resp 17 03/10/18 21:21 BP 98/59 L 03/10/18 21:21 Pulse Ox 98 03/10/18 21:21 - Labs Result Diagrams: 03/10/18 16:28 03/10/18 16:28 Assessment & Plan - Assessment and Plan (Free Text) Assessment: 27 year old Female with a past medical history of colon cancer s/p colectomy, Familial Adenomatous Polyposis, and anemia who presented to [place] [facility] with complaints of shortness of breath with associated cough x1 day likely 2/2 to bronchitis with acute bronchospasm. 1. SOB with cough likely 2/2 to bronchitis with acute bronchospasm vs PNA of unclear etiology - In the ED, patient was given zosyn, dilaudid, and 1 L NS - Duonebs schedule Q6H and Q2H prn - Azithromycin x1 then DC'ed - Patient put on broad spectrum coverage Vanc and Zosyn. - Robitussin for cough as needed - Follow up septic w/u - Blood cx, sputum cx, procal, UA neg - pulm consulted for recs - CT sinus negative - CT chest - patchy opacities throughout R lung and LLL concerning for multifocal infection. - f/u Legionella urine and Mycoplasma IgM for atypical presentations - f/u ID consult recs of Dr. Lee - f/u Pulm consult recs - V/Q scan- low probabality , elevated d-dimer 599 - CXR - neg - EKG shows NSR 95 BPM - Follow up ABG - Morning labs - Zofran for nausea as needed. Pain medication on board - Liquid diet- advance as tolerated 2. GI/DVT ppx - protonix and Lovenox sc Patient was seen, case reviewed, and plan discussed in detail with Dr. Leonides Alan. Mati Edmonds, PGY-1 <Ashley Alan - Last Filed: 03/14/18 22:35> Results - Vital Signs Recent Vital Signs: Last Vital Signs Temp 96.7 F L 03/13/18 13:32 Pulse 71 03/13/18 13:32 Resp 14 03/13/18 13:32 BP 97/64 L 03/13/18 13:32 Pulse Ox 97 03/13/18 13:32 - Labs Result Diagrams: 03/13/18 09:45 03/13/18 09:45 Labs: Laboratory Results - last 24 hr 03/11/18 08:00 Mycoplasma pneumon IgG 5.00 H Mycoplasma pneumon IgM 632
[2018-03-10 22:40] VITALS: BMI 22.1
[2018-03-10] MEDS ORDERED: Pneumococcal 23-Valent Vaccine IM ONE (22:40)
[2018-03-11] MEDS ORDERED: Docusate-Senna 50 mg-8.6 mg Tab PO PRN (00:09)
[2018-03-11] MEDS ORDERED: Vancomycin 1gm in NS 250ml 1 GM/250 ML BAG IVPB SCH (00:30)
[2018-03-11] MEDS: Morphine 2 mg/2 mL syringe IVP PRN ×5 (00:32→15:49)
[2018-03-11] MEDS ORDERED: HYDROmorphone 0.5 mg/0.5 ml ISec IVP STA ×2 (01:29→22:27)
[2018-03-11] MEDS: Albuterol-Ipratrop 3 mg / 0.5 (3 ml) UD IH SCH ×4 (01:50→19:53)
[2018-03-11] MEDS: Pantoprazole 40 mg EC Tab PO SCH (05:51)
[2018-03-11] MEDS ORDERED: Piperacill/Tazo 4.5gm in NS 4.5 GM/100 ML BAG IVPB SCH (06:00)
[2018-03-11 08:13] LABS: BASO # 0.01 K/mm3 (0.0-2.0); BASO % 0.3 % (0.0-3.0); EOS # 0.1 (0.0-0.7); EOS % 3.7 % (1.5-5.0); GRAN # 1.03 (1.4-6.5); GRAN % 34.2 % (50.0-68.0); HEMOGLOBIN 9.2 g/dL (12.0-16.0); LYMPH # 1.6 (1.2-3.4); LYMPH % 53.8 % (22.0-35.0); MEAN CORPUSCULAR HEMOGLOBIN 22.8 pg (25.0-35.0); MEAN CORPUSCULAR HGB CONC 32.2 g/dl (31.0-37.0); MEAN PLATELET VOLUME 9.2 fl (7.0-11.0); MONO # 0.2 (0.1-0.6); RBC 4.03 10^6/uL (3.5-6.1); RED CELL DISTRIBUTION WIDTH 20.6 % (11.5-14.5)
[2018-03-11 08:21] LABS: ALB/GLOB RATIO 1.2 (1.1-1.8); ALBUMIN 3.6 g/dL (3.0-4.8); ALT/SGPT 24 U/L (7-56); AST/SGOT 13 U/L (14-36); BLOOD UREA NITROGEN 9 mg/dL (7-21); CALCIUM 9.4 mg/dL (8.4-10.5); GFR AFRICAN-AMERICAN > 60; GFR NON-AFRICAN AMERICAN > 60
--- NOTE | 2018-03-11 08:38 | CT ---
PROCEDURE: CT SINUSES WITHOUT CONTRAST HISTORY: r/o sinusitis COMPARISON: None TECHNIQUE: Contiguous axial CT images of the paranasal sinuses were obtained. Coronal and sagittal reformats were generated. Radiation dose: Total exam DLP = 678.25 mGy-cm. This CT exam was performed using one or more of the following dose reduction techniques: Automated exposure control, adjustment of the mA and/or kV according to patient size, and/or use of iterative reconstruction technique. FINDINGS: FRONTAL SINUSES: Clear. ETHMOID SINUSES: Clear. SPHENOID SINUSES: Clear. MAXILLARY SINUSES: Clear. SINUS DRAINAGE: Osteomeatal complexes, frontal recesses and sphenoethmoid recesses clear. NASAL SEPTUM: No significant deviation. No destructive lesion. MASS: None. SKULL BASE: Unremarkable. TEMPORAL BONES: Middle ears and mastoid grossly unremarkable. OTHER FINDINGS: None. IMPRESSION: Unremarkable non contrast enhanced CT of the sinuses. Concordant results (preliminary interpretation) provided by [facility]. Procedure Completed: 22:26 Preliminary ([facility]) Report: Dictated and Authenticated: 22:58 Final Interpretation: 08:38. March 11, 2018.
--- NOTE | 2018-03-11 08:45 | CT ---
PROCEDURE: CT Chest without contrast HISTORY: r/o PNA COMPARISON: March 10, 2018. Ventilation-perfusion scan. March 10, 2018. Two-view chest TECHNIQUE: Contiguous axial images were obtained through the chest without intravenous contrast enhancement. Sagittal and coronal reconstructions were performed. Radiation dose (DLP): 300.96 mGy-cm. This CT exam was performed using one or more of the following dose reduction techniques: Automated exposure control, adjustment of the mA and/or kV according to patient size, and/or use of iterative reconstruction technique. FINDINGS: LUNGS: Patchy multifocal infiltrates affecting right upper lobe, right lower lobe with relative sparing of the right middle lobe. Similar less pronounced changes in the left lung. MEDIASTINUM: Unremarkable thoracic aorta. No aneurysm. Normal sized heart. Main pulmonary artery unremarkable. No vascular congestion. No lymphadenopathy. PLEURA: No pleural fluid. No pneumothorax. BONES: No fracture. No destructive lesion. UPPER ABDOMEN: Grossly unremarkable. OTHER FINDINGS: None. IMPRESSION: Multifocal infiltrates primarily affecting right lung, to lesser extent left lung consistent with infectious/inflammatory etiologies. Concordant results (preliminary interpretation) provided by [facility]. Procedure Completed: 22:23 Preliminary ([facility]) Report: Dictated and Authenticated: 22:58 Final Interpretation: 08:43 March 11, 2018.
--- NOTE | 2018-03-11 09:03 | CARD ---
APPROVED REPORT EKG Measurement Heart [id number] <Conclusion> Normal sinus rhythm LAD RVCD LVH PRWP NSSTW changes No change except the rate is faster
--- NOTE | 2018-03-11 09:19 | NM ---
COMPARISON: March 10, 2018. Two-view chest. March 10, 2018. CT thorax TECHNIQUE: 33.7 mCi technetium 99-m DTPA aerosol. 3.6 mCI technetium 99-m MAA administered intravenously. FINDINGS: VENTILATION COMPONENT: Heterogeneous ventilation. Retention of radionuclide in the tracheobronchial tree and ingestion of radionuclide in the stomach, incidental findings PERFUSION COMPONENT: Heterogeneous distribution of radionuclide. No geographic, segmental, lobar abnormalities apparent on the present examination. IMPRESSION: Low probability ventilation perfusion scan for pulmonary embolism. Concordant results (preliminary interpretation) provided by [facility]. Procedure Completed: 19:49 Preliminary ([facility]) Report: Dictated and Authenticated: 20:29. Final Interpretation: 09:17. March 11, 2018.
[2018-03-11] MEDS: Vancomycin 1gm in NS 250ml 1 GM/250 ML BAG IVPB SCH ×2 (10:00→23:06)
[2018-03-11] MEDS: Piperacillin/Tazobact 3.375 gm 100 ML IVPB SCH ×3 (12:34→23:12)
[2018-03-11] MEDS: Enoxaparin 40 mg Syringe SC SCH ×2 (12:34→12:47)
--- NOTE | 2018-03-11 14:32 | CP.PCM.PN ---
<Valentine Poe - Last Filed: 03/11/18 16:04> Subjective - Date & Time of Evaluation Date of Evaluation: 03/11/18 Time of Evaluation: 08:30 - Subjective Subjective: Patient complained of pain overnight which was relieve after a dose of morphine injection. This morning she stated that her shortness of breath has improved. However her pain is not relieved and rates the severity +9/10. She states that morphine is not as effective and that she has been given dilaudid in the past for pain management. Admits to chronic constipation. Denies fevers, chills. Patient requests to advance her diet. Objective - Vital Signs/Intake and Output Vital Signs (last 24 hours): Temp Pulse Resp BP Pulse Ox 98.4 F 84 20 90/53 L 99 03/11/18 00:01 03/11/18 00:01 03/11/18 00:01 03/11/18 00:01 03/11/18 00:01 - Medications Medications: Current Medications Albuterol/Ipratropium (Duoneb 3 Mg/0.5 Mg (3 Ml) Ud) 3 ml IH Q2H PRN PRN Reason: Shortness of Breath Albuterol/Ipratropium (Duoneb 3 Mg/0.5 Mg (3 Ml) Ud) 3 ml IH [id number] [facility] Last Admin: 03/11/18 13:33 Dose: 3 ml Docusate Sodium (Colace) 100 mg PO TID EKTA Enoxaparin Sodium (Lovenox) 40 mg SC DAILY [facility] PRN Reason: Protocol Last Admin: 03/11/18 12:47 Dose: Not Given Guaifenesin/Codeine Phosphate (Robitussin W/Codeine) 5 ml PO Q4H PRN PRN Reason: Cough and congestion Vancomycin HCl (Vancomycin 1gm) 1 gm in 250 mls @ 167 mls/hr IVPB Q12H [facility] PRN Reason: Protocol Stop: 03/20/18 10:01 Piperacillin Sod/Tazobactam Sod (Zosyn 3.375 In Ns 100ml) 100 mls @ 200 mls/hr IVPB Q6 [facility]KTA PRN Reason: Protocol Stop: 03/19/18 12:01 Last Admin: 03/11/18 12:34 Dose: 200 mls/hr Morphine Sulfate (Morphine) 4 mg IVP Q4H PRN PRN Reason: Pain, severe (8-10) Last Admin: 03/11/18 12:29 Dose: 4 mg Ondansetron HCl (Zofran Inj) 4 mg IVP Q6H PRN PRN Reason: Nausea/Vomiting Pantoprazole Sodium (Protonix Ec Tab) 40 mg PO 0600 EKTA Last Admin: 03/11/18 05:51 Dose: 40 mg Senna/Docusate Sodium (Senokot S 50 Mg-8.6 Mg) 1 tab PO DAILY PRN PRN Reason: Constipation Last Admin: 03/11/18 05:51 Dose: 1 tab Sennosides (Senokot Tab) 8.6 mg PO BID EKTA - Labs Labs: 03/11/18 07:55 03/11/18 07:55 PT 13.7 SECONDS (9.4-12.5) H 03/10/18 16:28 INR 1.20 (0.93-1.08) H 03/10/18 16:28 APTT 33.5 Seconds (25.1-36.5) 03/10/18 16:28 - Constitutional Appears: Non-toxic, No Acute Distress - Head Exam Head Exam: ATRAUMATIC, NORMAL INSPECTION, NORMOCEPHALIC - Eye Exam Eye Exam: EOMI, Normal appearance, PERRL - ENT Exam ENT Exam: Mucous Membranes Moist, Normal Exam - Neck Exam Neck Exam: Full ROM, Normal Inspection - Respiratory Exam Respiratory Exam: Decreased Breath Sounds, NORMAL BREATHING PATTERN. absent: Respiratory Distress - Cardiovascular Exam Cardiovascular Exam: REGULAR RHYTHM, +S1, +S2 - GI/Abdominal Exam GI & Abdominal Exam: Soft, Tenderness. absent: Firm, Guarding, Rebound - Rectal Exam Rectal Exam: Deferred - Extremities Exam Extremities Exam: Normal Inspection. absent: Tenderness - Back Exam Back Exam: NORMAL INSPECTION - Neurological Exam Neurological Exam: Alert, Awake, CN II-XII Intact, Oriented x3 - Psychiatric Exam Psychiatric exam: Normal Affect - Skin Skin Exam: Dry, Intact, Normal Color, Warm Assessment and Plan - Assessment and Plan (Free Text) Assessment: 27 year old female with a past medical history of colon cancer s/p colectomy, Familial Adenomatous Polyposis, and anemia who presented with shortness of breath and cough found to have multifocal pneumonia likely secondary to aspiration pneumonia. Plan: 1. Aspiration/nosocomial pneumonia - In the ED, given zosyn, azithromycin, dilaudid, and 1 L NS - Duonebs Q6H and Q2H prn - guaiFENesin/codeine for cough - Morphine 4 mg Q4H prn - Blood cultures, sputum cultures - Legionella urine and Mycoplasma IgM - procal high - Urinalysis negative - CT sinus negative - CT chest - patchy opacities throughout right lung and to a lesser extent left lung concerning for multifocal infection - V/Q scan- low probability, elevated d-dimer 599 - CXR - negative - EKG shows normal sinus rhythm 95 beats per minute - VBG shows no hypoxemia - Zofran for nausea as needed. Pain medication on board - Pulm consulted - ID consulted. Recommends vancomycin and zosyn - Liquid diet- advance as tolerated 2. Constipation - senna, colace GI/DVT PPX Protonix Lovenox Patient was seen and discussed with Dr. Corby Poe PGY-1 <Dona Tavarez R - Last Filed: 03/11/18 16:56> Objective - Vital Signs/Intake and Output Vital Signs (last 24 hours): Temp Pulse Resp BP Pulse Ox 98.7 F 74 18 85/53 L 98 03/11/18 14:00 03/11/18 14:00 03/11/18 14:00 03/11/18 14:00 03/11/18 14:00 Intake and Output: 03/11/18 03/11/18 06:59 18:59 Intake Total 360 Balance 360 - Medications Medications: Current Medications Albuterol/Ipratropium (Duoneb 3 Mg/0.5 Mg (3 Ml) Ud) 3 ml IH Q2H PRN PRN Reason: Shortness of Breath Albuterol/Ipratropium (Duoneb 3 Mg/0.5 Mg (3 Ml) Ud) 3 ml IH [id number] [facility] Last Admin: 03/11/18 13:33 Dose: 3 ml Docusate Sodium (Colace) 100 mg PO TID [facility] Last Admin: 03/11/18 15:55 Dose: 100 mg Enoxaparin Sodium (Lovenox) 40 mg SC DAILY [facility] PRN Reason: Protocol Last Admin: 03/11/18 12:47 Dose: Not Given Guaifenesin/Codeine Phosphate (Robitussin W/Codeine) 5 ml PO Q4H PRN PRN Reason: Cough and congestion Vancomycin HCl (Vancomycin 1gm) 1 gm in 250 mls @ 167 mls/hr IVPB Q12H [facility] PRN Reason: Protocol Stop: 03/20/18 10:01 Last Admin: 03/11/18 10:00 Dose: Not Given Piperacillin Sod/Tazobactam Sod (Zosyn 3.375 In Ns 100ml) 100 mls @ 200 mls/hr IVPB Q6 [facility] PRN Reason: Protocol Stop: 03/19/18 12:01 Last Admin: 03/11/18 12:34 Dose: 200 mls/hr Morphine Sulfate (Morphine) 4 mg IVP Q4H PRN PRN Reason: Pain, severe (8-10) Last Admin: 03/11/18 15:49 Dose: 4 mg Ondansetron HCl (Zofran Inj) 4 mg IVP Q6H PRN PRN Reason: Nausea/Vomiting Pantoprazole Sodium (Protonix Ec Tab) 40 mg PO 0600 EKTA Last Admin: 03/11/18 05:51 Dose: 40 mg Senna/Docusate Sodium (Senokot S 50 Mg-8.6 Mg) 1 tab PO DAILY PRN PRN Reason: Constipation Last Admin: 03/11/18 05:51 Dose: 1 tab Sennosides (Senokot Tab) 8.6 mg PO BID EKTA - Labs Labs: 03/11/18 07:55 03/11/18 07:55 PT 13.7 SECONDS (9.4-12.5) H 03/10/18 16:28 INR 1.20 (0.93-1.08) H 03/10/18 16:28 APTT 33.5 Seconds (25.1-36.5) 03/10/18 16:28 Attending/Attestation - Attestation I have personally seen and examined this patient.: Yes I have fully participated in the care of the patient.: Yes I have reviewed all pertinent clinical information, including history, physical exam and plan: Yes Notes (Text): Patient seen and examined by me at 11:15AM with resident at bedside. Case including physical assessment and plan discussed with resident. Agree with above with following additions/changes. Patient is a 27-year-old female presented with shortness of breath and painful cough. Shortness of breath improved. States her cough has also improved. She states it is somewhat productive with green sputum. She complains of pain in her chest and back from coughing. States that current dosing of morphine is not helping. She is requesting Dilaudid. Patient also complains of some abdominal pain that is improving since having bowel movements. Last bowel movement was this morning. No headaches or dizziness. No nausea or vomiting.. No fevers or chills. No dysuria. No diarrhea or constipation. Physical exam: Gen: Patient is awake and alert lying in bed in no acute distress HEENT: Normocephalic atraumatic, extraocular muscles intact, pupils equal reactive, oropharynx is pink and moist, no pharyngeal erythema or exudate appreciated, neck is supple. Cardiovascular: Normal rhythm, normal S1-S2, no murmurs rubs or gallops appreciated. Pulmonary: Decreased respiratory effort secondary to coughing. Decreased breath sounds. No rhonchi, rales, or wheezing appreciated Gastrointestinal: Soft, mild generalized tenderness, nondistended, positive bowel sounds all 4 quadrants, no guarding Musculoskeletal: Moves all extremities, no calf tenderness Central nervous system: AAO 3 Dermatologic: Skin warm and dry Assessment and plan: Patient is a 27 year old female with a past medical history significant for colon cancer s/p colectomy, Familial Adenomatous Polyposis, and anemia that presented to the emergency room with shortness of breath and cough. Patient found to have multifocal pneumonia likely secondary to aspiration. 1. Multifocal pneumonia likely secondary to aspiration. ID following, recommendations appreciated. Continue on vancomycin and Zosyn. Blood cultures and sputum cultures pending. Urine for Legionella pending. Mycoplasma IgM pending. Continue guaifenesin with codeine as needed for cough. Continue pain management. Placed on IV fluids. Patient is afebrile. Pro-calcitonin elevated. Continue with nebulizer treatments. Pulmonary consulted, follow up recommendations 2. Leukopenia. Likely secondary to current infection. Continue antibiotics. Continue to monitor 3. Hypotension. May be secondary to pain medications versus infection. Placed on IV fluids. Unsure patient's baseline. Holding parameters placed on pain medications. Continue to monitor. 4. Anemia. Chronic. Downtrending H&H may be dilutional effect. Continue to monitor for now 5. History of familial adenomatosis polyposis. Patient to continue outpatient follow-up with her physician 6. History of constipation. Continue home Colace and senna Case was discussed in detail with the patient and infertility medical assistant regarding current diagnosis and treatment plan
[2018-03-11] MEDS ORDERED: Sodium Chloride 0.9% 1,000 ML IV SCH (16:45)
[2018-03-11] MEDS ORDERED: Morphine 4 mg/ml ISec IVP PRN (16:52)
[2018-03-11] MEDS ORDERED: Sodium Chloride 0.9% 500 ML IV STA (16:55)
[2018-03-11] MEDS: Sodium Chloride 0.9% 1,000 ML IV SCH (17:45)
--- NOTE | 2018-03-11 19:52 | CON ---
DATE: 03/11/2018 PULMONARY CONSULTATION REQUESTING PHYSICIAN: Dr. Wallace. CHIEF COMPLAINT: The patient presented with shortness of breath. HISTORY OF PRESENT ILLNESS: Ms. Owens, she is a 27-year-old female with a history of colon CA and status post colectomy, also familial adenomatous polyposis as well as anemia. The patient had a sigmoidoscopy last week at [facility] and during the procedure stated that she had aspirated. She developed cough with sputum and congestion and pleuritic chest pain with shortness of breath and nauseousness and heaviness in the chest. The patient on CT scan reveals bilateral infiltrates. She has no present fever, chills. No present nauseousness or vomiting. PAST MEDICAL HISTORY: As above. ALLERGIES: SHE HAS NO KNOWN ALLERGIES. CURRENT MEDICATIONS: Could be evaluated as per the nurse's intake form. SOCIAL HISTORY: Patient has no history of smoking or EtOH abuse. FAMILY HISTORY: Noncontributory. REVIEW OF SYSTEMS: CONSTITUTIONAL: All negative. HEENT: All negative. RESPIRATORY: The patient presented with shortness of breath, cough, wheezing, chest congestion. CARDIOVASCULAR: She had some pleuritic chest pain. GASTROINTESTINAL: Has a history of colon CA and a colectomy. : All negative. MUSCULOSKELETAL: All negative. NEUROPSYCHIATRIC: All negative. HEMATOLOGIC: All negative. IMMUNOLOGIC: All negative. ENDOCRINE: All negative. PHYSICAL EXAMINATION: VITAL SIGNS: Note that her temperature is 98.7, her pulse is 74, respirations are 18 and BP is 85/53, O2 saturation is 98% on room air. HEENT: Head is atraumatic, normocephalic. Eyes: Reactive to light. Ear, nose and throat: Seem to be within normal limits. NECK: Supple. No JVD. No thyroid enlargement. No lymph nodes. HEART: Has regular rate and rhythm. Normal S1, S2. LUNGS: Reveal good breath sounds bilaterally. ABDOMEN: Soft, nontender. Decreased bowel sounds. GENITALIA: Deferred. RECTAL: Deferred. MUSCULOSKELETAL: No joint deformities. EXTREMITIES: Reveal no significant edema. NEUROLOGICAL: She seemed to be grossly intact. LABORATORY DATA: Her white count is 3, hemoglobin is 9.2, hematocrit 28.6 with platelets of 172,000. The patient's sodium is 140, potassium 4.1, chloride 101, CO2 of 28 with a BUN of 9, creatinine of 0.6 and glucose of 85. As far as CT scan of the chest, it reveals multifocal infiltrates, primarily affecting the right lung, to a lesser extent the left lung consistent with inflammation/infection etiologies. IMPRESSION: This patient has bilateral pneumonia secondary to aspiration. She has a history of colon cancer and status post colectomy. She has a history of anemia. PLAN: I would continue with bronchodilators of DuoNeb and the patient is getting vancomycin with his Zosyn and she is getting Lovenox subcu. She is also getting Robitussin p.r.n. and I will continue with aggressive pulmonary toilet. Follow O2 sats closely and continue appropriate treatment for aspiration pneumonia. The patient should be followed up by her primary care doctor once discharged and continue to be followed closely for any re-exacerbations of the respiratory problem. Kishore Madrigal MD
--- NOTE | 2018-03-11 19:55 | CON ---
DATE: 03/11/2018 LOCATION: The patient was seen earlier this morning in room 565 bed 1. CHIEF COMPLAINT: Abdominal discomfort and weakness. HISTORY OF PRESENT ILLNESS This is an unfortunate 27-year-old female known to me from previous admissions and a history of familial adenomatous polyposis, anemia, colon cancer status post colectomy and who was recently admitted to [facility], had anesthesia five days ago, had a procedure with sigmoidoscopy and dilation and who was admitted now with shortness of breath, cough associated with pleuritic chest pain and low-grade fevers, no chills and the patient has some abdominal discomfort and no dysuria or frequency. PAST MEDICAL HISTORY: Significant for the familial adenomatous polyposis, anemia and colon cancer. PAST SURGICAL HISTORY: Significant for recent sigmoidoscopy and dilatation of an anastomosis; the patient also had atrial septal defect surgery as a child. The patient also had an appendectomy and had chemotherapy. ALLERGIES: THE PATIENT HAS NO KNOWN ALLERGIES. MEDICATIONS AT HOME: Include oxycodone and Zofran. PHYSICAL EXAMINATION: GENERAL: On exam, the patient is in bed, chronically ill, debilitated and weak, cachectic. VITAL SIGNS: Temperature of 99.8, heart rate of 102, respiratory rate of 20, blood pressure is 99/60. The patient's O2 saturation is at 98% saturation on room air. BMI is 22. HEENT: Examination is unremarkable. NECK: Supple. LUNGS: Have decreased breath sounds. HEART: Normal S1, S2. ABDOMEN: Soft. Mild tenderness. No rebound or guarding. No masses. DATA: Laboratory examination reveals a white count of 3000, hemoglobin of 10, MCV is 71, 48% granulocytosis. Coagulation is noted and chemistries reveals LFTs are normal. Renal function is normal. The patient's bicarb is 27 and with anion gap of 17. Sodium is normal. The patient's urinalysis is unremarkable and the patient had a CT scan of the chest, which has not been read. Chest x-ray was negative. Looking at the CAT scan of the chest, there appears to be right-sided infiltrate. The patient also had a CAT scan of the sinuses, that has not been read. The history of physical examination of Dr. Hanks is reviewed. Emergency room chart written by Aranza Reed is also reviewed. ASSESSMENT AND PLAN: This is a 27-year-old female with familial adenomatous polyposis; history of atrial septal defect, history of colon cancer, has had colectomy, more recently had a procedure for dilatation of the narrowing of the anastomosis with anesthesia and developed a questionable aspiration now presents with low-grade fevers, tachycardia, shortness of breath and cough and leukopenia. Sepsis with right-sided healthcare-associated aspiration pneumonia in a young woman with colon cancer, status post colectomy. We will treat the patient with vancomycin and Zosyn and pending blood cultures, urine cultures and vancomycin trough level on the fourth dose, an hour before the dose and procalcitonin, sputum cultures, on vancomycin and Zosyn. We will make further recommendations upon availability of initial results. We will follow closely with you. Lucho Henderson MD
[2018-03-12] MEDS ORDERED: HYDROmorphone 0.5 mg/0.5 ml ISec IVP PRN (02:23)
[2018-03-12] MEDS: Albuterol-Ipratrop 3 mg / 0.5 (3 ml) UD IH SCH ×4 (02:30→20:42)
[2018-03-12] MEDS: Piperacillin/Tazobact 3.375 gm 100 ML IVPB SCH ×3 (05:30→17:30)
[2018-03-12] MEDS: Sodium Chloride 0.9% 1,000 ML IV SCH ×2 (05:31→21:31)
[2018-03-12] MEDS: Pantoprazole 40 mg EC Tab PO SCH (05:31)
[2018-03-12] MEDS ORDERED: HYDROmorphone 0.5 mg/0.5 ml ISec IVP STA (07:39)
--- NOTE | 2018-03-12 07:52 | CP.PCM.PN ---
Subjective - Date & Time of Evaluation Date of Evaluation: 03/12/18 Time of Evaluation: 07:30 Objective - Vital Signs/Intake and Output Vital Signs (last 24 hours): Temp Pulse Resp BP Pulse Ox 98.2 F 70 18 98/63 L 100 03/11/18 22:04 03/11/18 22:04 03/11/18 22:04 03/11/18 22:04 03/11/18 22:04 Intake and Output: 03/12/18 03/12/18 06:59 18:59 Intake Total 1080 Balance 1080 - Medications Medications: Current Medications Albuterol/Ipratropium (Duoneb 3 Mg/0.5 Mg (3 Ml) Ud) 3 ml IH Q2H PRN PRN Reason: Shortness of Breath Albuterol/Ipratropium (Duoneb 3 Mg/0.5 Mg (3 Ml) Ud) 3 ml IH [id number] [facility] Last Admin: 03/12/18 07:19 Dose: Not Given Docusate Sodium (Colace) 100 mg PO TID [facility] Last Admin: 03/11/18 19:14 Dose: 100 mg Enoxaparin Sodium (Lovenox) 40 mg SC DAILY [facility] PRN Reason: Protocol Last Admin: 03/11/18 12:47 Dose: Not Given Guaifenesin/Codeine Phosphate (Robitussin W/Codeine) 5 ml PO Q4H PRN PRN Reason: Cough and congestion Vancomycin HCl (Vancomycin 1gm) 1 gm in 250 mls @ 167 mls/hr IVPB Q12H [facility] PRN Reason: Protocol Stop: 03/20/18 10:01 Last Admin: 03/11/18 23:06 Dose: 167 mls/hr Piperacillin Sod/Tazobactam Sod (Zosyn 3.375 In Ns 100ml) 100 mls @ 200 mls/hr IVPB Q6 EKTA PRN Reason: Protocol Stop: 03/19/18 12:01 Last Admin: 03/12/18 05:30 Dose: 200 mls/hr Sodium Chloride (Sodium Chloride 0.9%) 1,000 mls @ 125 mls/hr IV .Q8H [facility] Last Admin: 03/12/18 05:31 Dose: 125 mls/hr Ondansetron HCl (Zofran Inj) 4 mg IVP Q6H PRN PRN Reason: Nausea/Vomiting Pantoprazole Sodium (Protonix Ec Tab) 40 mg PO 0600 [facility] Last Admin: 03/12/18 05:31 Dose: 40 mg Senna/Docusate Sodium (Senokot S 50 Mg-8.6 Mg) 1 tab PO DAILY PRN PRN Reason: Constipation Last Admin: 03/11/18 05:51 Dose: 1 tab Sennosides (Senokot Tab) 8.6 mg PO BID [facility] Last Admin: 03/11/18 19:14 Dose: 8.6 mg - Labs Labs: 03/11/18 07:55 03/11/18 07:55 PT 13.7 SECONDS (9.4-12.5) H 03/10/18 16:28 INR 1.20 (0.93-1.08) H 03/10/18 16:28 APTT 33.5 Seconds (25.1-36.5) 03/10/18 16:28 - Constitutional Appears: No Acute Distress - Head Exam Head Exam: ATRAUMATIC, NORMOCEPHALIC - Eye Exam Eye Exam: EOMI, Normal appearance - ENT Exam ENT Exam: Mucous Membranes Moist, Normal Exam - Neck Exam Neck Exam: Full ROM, Normal Inspection - Respiratory Exam Respiratory Exam: Decreased Breath Sounds, NORMAL BREATHING PATTERN. absent: Rales, Rhonchi, Wheezes, Respiratory Distress - Cardiovascular Exam Cardiovascular Exam: REGULAR RHYTHM, +S1, +S2. absent: Gallop, Rubs - GI/Abdominal Exam GI & Abdominal Exam: Soft, Tenderness, Normal Bowel Sounds. absent: Distended, Firm Additional comments: Diffuse abdominal tenderness - Rectal Exam Rectal Exam: Deferred
[2018-03-12] MEDS: Vancomycin 1gm in NS 250ml 1 GM/250 ML BAG IVPB SCH ×2 (11:02→22:11)
[2018-03-12] MEDS: Enoxaparin 40 mg Syringe SC SCH (11:04)
--- NOTE | 2018-03-12 14:20 | CP.PCM.PN ---
Subjective - Date & Time of Evaluation Date of Evaluation: 03/12/18 Time of Evaluation: 14:16 - Subjective Subjective: Patient seen and examined. Reports that SOB is markedly improved, after nebs and abx. Denies fever, chills, cough, palpitations, SOB. Objective - Vital Signs/Intake and Output Vital Signs (last 24 hours): Temp Pulse Resp BP Pulse Ox 97.5 F L 81 20 101/66 97 03/12/18 06:00 03/12/18 06:00 03/12/18 06:00 03/12/18 06:00 03/12/18 06:00 Intake and Output: 03/12/18 03/12/18 06:59 18:59 Intake Total 1080 Balance 1080 - Medications Medications: Current Medications Albuterol/Ipratropium (Duoneb 3 Mg/0.5 Mg (3 Ml) Ud) 3 ml IH Q2H PRN PRN Reason: Shortness of Breath Albuterol/Ipratropium (Duoneb 3 Mg/0.5 Mg (3 Ml) Ud) 3 ml IH [id number] EKTA Docusate Sodium (Colace) 100 mg PO TID [facility] Last Admin: 03/12/18 14:06 Dose: 100 mg Enoxaparin Sodium (Lovenox) 40 mg SC DAILY [facility] PRN Reason: Protocol Last Admin: 03/12/18 11:04 Dose: Not Given Guaifenesin/Codeine Phosphate (Robitussin W/Codeine) 5 ml PO Q4H PRN PRN Reason: Cough and congestion Hydromorphone HCl (Dilaudid) 0.5 mg IVP Q4H PRN PRN Reason: Pain, moderate (4-7) Vancomycin HCl (Vancomycin 1gm) 1 gm in 250 mls @ 167 mls/hr IVPB Q12H [facility] PRN Reason: Protocol Stop: 03/20/18 10:01 Last Admin: 03/12/18 11:02 Dose: 167 mls/hr Piperacillin Sod/Tazobactam Sod (Zosyn 3.375 In Ns 100ml) 100 mls @ 200 mls/hr IVPB Q6 [facility] PRN Reason: Protocol Stop: 03/19/18 12:01 Last Admin: 03/12/18 05:30 Dose: 200 mls/hr Sodium Chloride (Sodium Chloride 0.9%) 1,000 mls @ 125 mls/hr IV .Q8H [facility] Last Admin: 03/12/18 05:31 Dose: 125 mls/hr Ondansetron HCl (Zofran Inj) 4 mg IVP Q6H PRN PRN Reason: Nausea/Vomiting Pantoprazole Sodium (Protonix Ec Tab) 40 mg PO 0600 [facility] Last Admin: 03/12/18 05:31 Dose: 40 mg Senna/Docusate Sodium (Senokot S 50 Mg-8.6 Mg) 1 tab PO DAILY PRN PRN Reason: Constipation Last Admin: 03/11/18 05:51 Dose: 1 tab Sennosides (Senokot Tab) 8.6 mg PO BID [facility] Last Admin: 03/12/18 14:06 Dose: 8.6 mg - Labs Labs: 03/11/18 07:55 03/11/18 07:55 PT 13.7 SECONDS (9.4-12.5) H 03/10/18 16:28 INR 1.20 (0.93-1.08) H 03/10/18 16:28 APTT 33.5 Seconds (25.1-36.5) 03/10/18 16:28 - Constitutional Appears: Non-toxic, No Acute Distress - Head Exam Head Exam: NORMAL INSPECTION - Eye Exam Eye Exam: Normal appearance - ENT Exam ENT Exam: Mucous Membranes Moist - Neck Exam Neck Exam: Full ROM - Respiratory Exam Respiratory Exam: Clear to Ausculation Bilateral, NORMAL BREATHING PATTERN - Cardiovascular Exam Cardiovascular Exam: REGULAR RHYTHM, +S1, +S2 - GI/Abdominal Exam GI & Abdominal Exam: Soft, Normal Bowel Sounds - Extremities Exam Extremities Exam: Normal Inspection Assessment and Plan - Assessment and Plan (Free Text) Assessment: 27yo female with PMHx colon cancer s/p colectomy, Familial Adenomatous Polyposis, and anemia a/w multifocal PNA, aspiration PNA - currently afebrile, BP stable, comfortable on room air, reports SOB and cough is markedly improved - Procal 0.84 - ID following - cont with abx as per ID, Arturo Puente - Misaelonebs PRN - check urine Lg, Strep - follow up cultures
--- NOTE | 2018-03-12 15:11 | CP.PCM.PN ---
Subjective - Date & Time of Evaluation Date of Evaluation: 03/12/18 Time of Evaluation: 10:05 - Subjective Subjective: Patient is feeling better, no fevers, not in distress, cough is improving. Objective - Vital Signs/Intake and Output Vital Signs (last 24 hours): Temp Pulse Resp BP Pulse Ox 97.5 F L 81 20 101/66 97 03/12/18 06:00 03/12/18 06:00 03/12/18 06:00 03/12/18 06:00 03/12/18 06:00 Intake and Output: 03/12/18 03/12/18 06:59 18:59 Intake Total 1080 Balance 1080 - Medications Medications: Current Medications Albuterol/Ipratropium (Duoneb 3 Mg/0.5 Mg (3 Ml) Ud) 3 ml IH Q2H PRN PRN Reason: Shortness of Breath Albuterol/Ipratropium (Duoneb 3 Mg/0.5 Mg (3 Ml) Ud) 3 ml IH [id number] [facility] Last Admin: 03/12/18 07:19 Dose: Not Given Docusate Sodium (Colace) 100 mg PO TID [facility] Last Admin: 03/11/18 19:14 Dose: 100 mg Enoxaparin Sodium (Lovenox) 40 mg SC DAILY [facility] PRN Reason: Protocol Last Admin: 03/11/18 12:47 Dose: Not Given Guaifenesin/Codeine Phosphate (Robitussin W/Codeine) 5 ml PO Q4H PRN PRN Reason: Cough and congestion Vancomycin HCl (Vancomycin 1gm) 1 gm in 250 mls @ 167 mls/hr IVPB Q12H [facility] PRN Reason: Protocol Stop: 03/20/18 10:01 Last Admin: 03/11/18 23:06 Dose: 167 mls/hr Piperacillin Sod/Tazobactam Sod (Zosyn 3.375 In Ns 100ml) 100 mls @ 200 mls/hr IVPB Q6 [facility] PRN Reason: Protocol Stop: 03/19/18 12:01 Last Admin: 03/12/18 05:30 Dose: 200 mls/hr Sodium Chloride (Sodium Chloride 0.9%) 1,000 mls @ 125 mls/hr IV .Q8H [facility] Last Admin: 03/12/18 05:31 Dose: 125 mls/hr Ondansetron HCl (Zofran Inj) 4 mg IVP Q6H PRN PRN Reason: Nausea/Vomiting Pantoprazole Sodium (Protonix Ec Tab) 40 mg PO 0600 [facility] Last Admin: 03/12/18 05:31 Dose: 40 mg Senna/Docusate Sodium (Senokot S 50 Mg-8.6 Mg) 1 tab PO DAILY PRN PRN Reason: Constipation Last Admin: 03/11/18 05:51 Dose: 1 tab Sennosides (Senokot Tab) 8.6 mg PO BID [facility] Last Admin: 03/11/18 19:14 Dose: 8.6 mg - Labs Labs: 03/11/18 07:55 03/11/18 07:55 PT 13.7 SECONDS (9.4-12.5) H 03/10/18 16:28 INR 1.20 (0.93-1.08) H 03/10/18 16:28 APTT 33.5 Seconds (25.1-36.5) 03/10/18 16:28 - Constitutional Appears: Non-toxic - Head Exam Head Exam: NORMAL INSPECTION - Neck Exam Neck Exam: absent: Meningismus - Respiratory Exam Respiratory Exam: Decreased Breath Sounds - Cardiovascular Exam Cardiovascular Exam: +S1, +S2 - GI/Abdominal Exam GI & Abdominal Exam: Soft. absent: Tenderness Assessment and Plan - Assessment and Plan (Free Text) Plan: Assessment sepsis due to right sided hospital-acquired pneumonia, slowly improving clinically history of intra-abdominal fluid collections (near rectal pouch) in a patient S/ P colectomy due to colon cancer familial adenomatous polyposis history of intra-abdominal abscess Plan continue Vancomycin and Zosyn day 2 and will repeat PCT; blood cx are negative x 24 hours - if cultures continue to be negative tomorrow and PCT is below 0.5, may de-escalate to PO antibiotics (PO Doxycycline and Augmentin) to complete 4- 7 days of therapy will continue to monitor clinically
--- NOTE | 2018-03-12 15:46 | CP.PCM.PN ---
<Valentine Poe L - Last Filed: 03/12/18 16:22> Subjective - Date & Time of Evaluation Date of Evaluation: 03/12/18 Time of Evaluation: 07:00 - Subjective Subjective: Patient seen and examined at bedside. Overnight, patient complained of generalized pain. Was given 2 doses of 0.5 mg dilaudid. States that the medication helped to resolve her pain. This morning, she reiterated that the morphine dosage she was given yesterday was not effective for her pain management. Admits to baseline abdominal pain, states this is likely due to the sennakot. Reports normal bowel movements. States her shortness of breath is improving. 12 point ROS negative except as indicated in HPI Objective - Vital Signs/Intake and Output Vital Signs (last 24 hours): Temp Pulse Resp BP Pulse Ox 98.9 F 68 18 126/71 94 L 03/12/18 14:00 03/12/18 14:00 03/12/18 14:00 03/12/18 14:00 03/12/18 14:00 Intake and Output: 03/12/18 03/12/18 06:59 18:59 Intake Total 1080 480 Balance 1080 480 - Medications Medications: Current Medications Albuterol/Ipratropium (Duoneb 3 Mg/0.5 Mg (3 Ml) Ud) 3 ml IH Q2H PRN PRN Reason: Shortness of Breath Albuterol/Ipratropium (Duoneb 3 Mg/0.5 Mg (3 Ml) Ud) 3 ml IH [id number] [facility] Docusate Sodium (Colace) 100 mg PO TID [facility] Last Admin: 03/12/18 14:06 Dose: 100 mg Enoxaparin Sodium (Lovenox) 40 mg SC DAILY [facility] PRN Reason: Protocol Last Admin: 03/12/18 11:04 Dose: Not Given Guaifenesin/Codeine Phosphate (Robitussin W/Codeine) 5 ml PO Q4H PRN PRN Reason: Cough and congestion Hydromorphone HCl (Dilaudid) 0.5 mg IVP Q4H PRN PRN Reason: Pain, moderate (4-7) Vancomycin HCl (Vancomycin 1gm) 1 gm in 250 mls @ 167 mls/hr IVPB Q12H [facility] PRN Reason: Protocol Stop: 03/20/18 10:01 Last Admin: 03/12/18 11:02 Dose: 167 mls/hr Piperacillin Sod/Tazobactam Sod (Zosyn 3.375 In Ns 100ml) 100 mls @ 200 mls/hr IVPB Q6 [facility] PRN Reason: Protocol Stop: 03/19/18 12:01 Last Admin: 03/12/18 15:10 Dose: Not Given Sodium Chloride (Sodium Chloride 0.9%) 1,000 mls @ 125 mls/hr IV .Q8H [facility] Last Admin: 03/12/18 05:31 Dose: 125 mls/hr Ondansetron HCl (Zofran Inj) 4 mg IVP Q6H PRN PRN Reason: Nausea/Vomiting Pantoprazole Sodium (Protonix Ec Tab) 40 mg PO 0600 [facility] Last Admin: 03/12/18 05:31 Dose: 40 mg Senna/Docusate Sodium (Senokot S 50 Mg-8.6 Mg) 1 tab PO DAILY PRN PRN Reason: Constipation Last Admin: 03/11/18 05:51 Dose: 1 tab Sennosides (Senokot Tab) 8.6 mg PO BID [facility] Last Admin: 03/12/18 14:06 Dose: 8.6 mg - Labs Labs: 03/11/18 07:55 03/11/18 07:55 PT 13.7 SECONDS (9.4-12.5) H 03/10/18 16:28 INR 1.20 (0.93-1.08) H 03/10/18 16:28 APTT 33.5 Seconds (25.1-36.5) 03/10/18 16:28 - Constitutional Appears: Non-toxic, No Acute Distress - Head Exam Head Exam: ATRAUMATIC, NORMOCEPHALIC - Eye Exam Eye Exam: EOMI, Normal appearance - ENT Exam ENT Exam: Mucous Membranes Moist, Normal Exam - Neck Exam Neck Exam: Full ROM, Normal Inspection - Respiratory Exam Respiratory Exam: Decreased Breath Sounds, NORMAL BREATHING PATTERN. absent: Rales, Rhonchi - Cardiovascular Exam Cardiovascular Exam: REGULAR RHYTHM, +S1, +S2. absent: Murmur - GI/Abdominal Exam GI & Abdominal Exam: Soft, Tenderness, Normal Bowel Sounds. absent: Distended Additional comments: Diffuse abdominal tenderness - Extremities Exam Extremities Exam: Full ROM, Normal Inspection - Back Exam Back Exam: NORMAL INSPECTION - Neurological Exam Neurological Exam: Alert, Awake, CN II-XII Intact, Oriented x3 - Psychiatric Exam Psychiatric exam: Normal Affect, Normal Mood - Skin Skin Exam: Dry, Intact, Normal Color Assessment and Plan - Assessment and Plan (Free Text) Assessment: 27 year old female with a past medical history of colon cancer s/p colectomy, Familial Adenomatous Polyposis, and anemia who presented with shortness of breath and cough found to have multifocal pneumonia likely secondary to aspiration pneumonia. Plan: 1. Aspiration/nosocomial pneumonia - In the ED, given zosyn, azithromycin, dilaudid, and 1 L NS - Duonebs - guaiFENesin/codeine for cough - Blood cultures x2 negative for 24 hours - Sputum and urine cultures pending - Legionella urine and Mycoplasma IgM results pending - procal elevated - Urinalysis negative - CT sinus negative - CT chest - patchy opacities throughout right lung and to a lesser extent left lung concerning for multifocal infection - V/Q scan- low probability, elevated d-dimer 599 - CXR - negative - EKG shows normal sinus rhythm 95 beats per minute - VBG shows no hypoxemia - Zofran for nausea as needed. Pain medication on board - Pulm consulted. Recommends continuing current medication regiment - ID consulted. Recommends repeat procal and discharge if blood cultures remain negative tomorrow - Liquid diet advanced to normal diet 2. Constipation - continue senna, colace 3. GI/DVT PPX Protonix Lovenox Patient was seen and plan was approved by Dr. Cheryl Poe PGY-1 <Lee Luna - Last Filed: 03/12/18 16:48> Objective - Vital Signs/Intake and Output Vital Signs (last 24 hours): Temp Pulse Resp BP Pulse Ox 98.9 F 68 18 126/71 94 L 03/12/18 14:00 03/12/18 14:00 03/12/18 14:00 03/12/18 14:00 03/12/18 14:00 Intake and Output: 03/12/18 03/12/18 06:59 18:59 Intake Total 1080 480 Balance 1080 480 - Medications Medications: Current Medications Albuterol/Ipratropium (Duoneb 3 Mg/0.5 Mg (3 Ml) Ud) 3 ml IH Q2H PRN PRN Reason: Shortness of Breath Albuterol/Ipratropium (Duoneb 3 Mg/0.5 Mg (3 Ml) Ud) 3 ml IH [id number] Docusate Sodium (Colace) 100 mg PO TID [facility] Last Admin: 03/12/18 14:06 Dose: 100 mg Enoxaparin Sodium (Lovenox) 40 mg SC DAILY [facility] PRN Reason: Protocol Last Admin: 03/12/18 11:04 Dose: Not Given Guaifenesin/Codeine Phosphate (Robitussin W/Codeine) 5 ml PO Q4H PRN PRN Reason: Cough and congestion Hydromorphone HCl (Dilaudid) 0.5 mg IVP Q4H PRN PRN Reason: Pain, moderate (4-7) Vancomycin HCl (Vancomycin 1gm) 1 gm in 250 mls @ 167 mls/hr IVPB Q12H [facility] PRN Reason: Protocol Stop: 03/20/18 10:01 Last Admin: 03/12/18 11:02 Dose: 167 mls/hr Piperacillin Sod/Tazobactam Sod (Zosyn 3.375 In Ns 100ml) 100 mls @ 200 mls/hr IVPB Q6 [facility] PRN Reason: Protocol Stop: 03/19/18 12:01 Last Admin: 03/12/18 15:10 Dose: Not Given Sodium Chloride (Sodium Chloride 0.9%) 1,000 mls @ 125 mls/hr IV .Q8H [facility] Last Admin: 03/12/18 05:31 Dose: 125 mls/hr Ondansetron HCl (Zofran Inj) 4 mg IVP Q6H PRN PRN Reason: Nausea/Vomiting Pantoprazole Sodium (Protonix Ec Tab) 40 mg PO 0600 [facility] Last Admin: 03/12/18 05:31 Dose: 40 mg Senna/Docusate Sodium (Senokot S 50 Mg-8.6 Mg) 1 tab PO DAILY PRN PRN Reason: Constipation Last Admin: 03/11/18 05:51 Dose: 1 tab Sennosides (Senokot Tab) 8.6 mg PO BID [facility] Last Admin: 03/12/18 14:06 Dose: 8.6 mg - Labs Labs: 03/11/18 07:55 03/11/18 07:55 PT 13.7 SECONDS (9.4-12.5) H 03/10/18 16:28 INR 1.20 (0.93-1.08) H 03/10/18 16:28 APTT 33.5 Seconds (25.1-36.5) 03/10/18 16:28 Attending/Attestation - Attestation I have personally seen and examined this patient.: Yes I have fully participated in the care of the patient.: Yes I have reviewed all pertinent clinical information, including history, physical exam and plan: Yes Notes (Text): 03/12/18 16:43 Attending note; Patient seen and examined with resident. Patient is a 27 year old female with a past medical history significant for colon cancer s/p colectomy, Familial Adenomatous Polyposis, and anemia that presented to the emergency room with shortness of breath and cough. Patient found to have multifocal pneumonia likely secondary to aspiration. Multifocal pneumonia likely secondary to aspiration. Patient is currently afebrile and nontoxic . No significant sputum production .complaining of mild cough . ID evaluation appreciated . Continue on vancomycin and Zosyn. Blood culture is negative so far. Urine for Legionella pending. Mycoplasma IgM pending. Continue guaifenesin with codeine as needed for cough. Continue DuoNeb treatment. Pleuritic chest pain with cough ;IV Dilaudid for pain management. ID evaluation appreciated. Anemia.:Chronic. Needs close outpatient follow-up. Constipation; continue Colace and MiraLAX at home. Needs close outpatient colorectal surgery follow-up in [place]. Possible discharge home tomorrow if clinically stable. Upon discharge the patient will follow up with PMD Dr. Strauss. 03/12/18 16:47
[2018-03-12] MEDS: HYDROmorphone 0.5 mg/0.5 ml ISec IVP PRN ×2 (17:32→21:31)
[2018-03-13] MEDS: Albuterol-Ipratrop 3 mg / 0.5 (3 ml) UD IH SCH ×5 (00:35→16:12)
[2018-03-13] MEDS: Piperacillin/Tazobact 3.375 gm 100 ML IVPB SCH ×3 (00:56→13:39)
[2018-03-13] MEDS: HYDROmorphone 0.5 mg/0.5 ml ISec IVP PRN ×5 (01:01→17:43)
[2018-03-13] MEDS: Pantoprazole 40 mg EC Tab PO SCH (05:02)
[2018-03-13] MEDS: Vancomycin 1gm in NS 250ml 1 GM/250 ML BAG IVPB SCH (09:10)
[2018-03-13 09:52] LABS: BASO # 0.01 K/mm3 (0.0-2.0); BASO % 0.5 % (0.0-3.0); EOS # 0.1 (0.0-0.7); EOS % 2.3 % (1.5-5.0); GRAN # 0.7 (1.4-6.5); GRAN % 31.4 % (50.0-68.0); LYMPH # 1.3 (1.2-3.4); LYMPH % 58.6 % (22.0-35.0); MEAN CELL VOLUME 72.1 fl (80.0-105.0); MEAN CORPUSCULAR HEMOGLOBIN 22.4 pg (25.0-35.0); MEAN CORPUSCULAR HGB CONC 31.1 g/dl (31.0-37.0); MONO # 0.2 (0.1-0.6); MONO % 7.2 % (1.0-6.0); RBC 4.01 10^6/uL (3.5-6.1); RED CELL DISTRIBUTION WIDTH 20.6 % (11.5-14.5)
[2018-03-13 09:55] LABS: WHITE BLOOD COUNT 2.2 10^3/ul (4.5-11.0)
[2018-03-13 10:18] LABS: ALB/GLOB RATIO 1.1 (1.1-1.8); ALBUMIN 3.4 g/dL (3.0-4.8); ALT/SGPT 18 U/L (7-56); AST/SGOT 9 U/L (14-36); BLOOD UREA NITROGEN 4 mg/dL (7-21); CALCIUM 9.2 mg/dL (8.4-10.5); GFR AFRICAN-AMERICAN > 60; GFR NON-AFRICAN AMERICAN > 60
--- NOTE | 2018-03-13 11:20 | CP.PCM.PN ---
Subjective - Date & Time of Evaluation Date of Evaluation: 03/13/18 Time of Evaluation: 10:15 - Subjective Subjective: Feeling better, breathing better, no fevers. Objective - Vital Signs/Intake and Output Vital Signs (last 24 hours): Temp Pulse Resp BP Pulse Ox 98.6 F 62 20 89/50 L 95 03/13/18 06:00 03/13/18 06:00 03/13/18 06:00 03/13/18 06:00 03/13/18 06:00 - Medications Medications: Current Medications Albuterol/Ipratropium (Duoneb 3 Mg/0.5 Mg (3 Ml) Ud) 3 ml IH Q2H PRN PRN Reason: Shortness of Breath Albuterol/Ipratropium (Duoneb 3 Mg/0.5 Mg (3 Ml) Ud) 3 ml IH [id number] [facility] Last Admin: 03/13/18 07:18 Dose: Not Given Docusate Sodium (Colace) 100 mg PO TID [facility] Last Admin: 03/13/18 09:10 Dose: 100 mg Enoxaparin Sodium (Lovenox) 40 mg SC DAILY [facility] PRN Reason: Protocol Last Admin: 03/12/18 11:04 Dose: Not Given Guaifenesin/Codeine Phosphate (Robitussin W/Codeine) 5 ml PO Q4H PRN PRN Reason: Cough and congestion Hydromorphone HCl (Dilaudid) 0.5 mg IVP Q4H PRN PRN Reason: Pain, moderate (4-7) Last Admin: 03/13/18 09:09 Dose: 0.5 mg Vancomycin HCl (Vancomycin 1gm) 1 gm in 250 mls @ 167 mls/hr IVPB Q12H [facility] PRN Reason: Protocol Stop: 03/20/18 10:01 Last Admin: 03/13/18 09:10 Dose: 167 mls/hr Piperacillin Sod/Tazobactam Sod (Zosyn 3.375 In Ns 100ml) 100 mls @ 200 mls/hr IVPB Q6 [facility] PRN Reason: Protocol Stop: 03/19/18 12:01 Last Admin: 03/13/18 05:03 Dose: 200 mls/hr Sodium Chloride (Sodium Chloride 0.9%) 1,000 mls @ 125 mls/hr IV .Q8H [facility] Last Admin: 03/12/18 21:31 Dose: 125 mls/hr Ondansetron HCl (Zofran Inj) 4 mg IVP Q6H PRN PRN Reason: Nausea/Vomiting Pantoprazole Sodium (Protonix Ec Tab) 40 mg PO 0600 [facility] Last Admin: 03/13/18 05:02 Dose: 40 mg Senna/Docusate Sodium (Senokot S 50 Mg-8.6 Mg) 1 tab PO DAILY PRN PRN Reason: Constipation Last Admin: 03/11/18 05:51 Dose: 1 tab Sennosides (Senokot Tab) 8.6 mg PO BID [facility] Last Admin: 03/13/18 09:10 Dose: 8.6 mg - Labs Labs: 03/11/18 07:55 03/11/18 07:55 PT 13.7 SECONDS (9.4-12.5) H 03/10/18 16:28 INR 1.20 (0.93-1.08) H 03/10/18 16:28 APTT 33.5 Seconds (25.1-36.5) 03/10/18 16:28 - Constitutional Appears: Chronically Ill - Head Exam Head Exam: NORMAL INSPECTION - Respiratory Exam Respiratory Exam: Decreased Breath Sounds - Cardiovascular Exam Cardiovascular Exam: +S1, +S2 - GI/Abdominal Exam GI & Abdominal Exam: Soft. absent: Tenderness Assessment and Plan - Assessment and Plan (Free Text) Plan: Assessment sepsis due to right sided hospital-acquired pneumonia, improving clinically history of intra-abdominal fluid collections (near rectal pouch) in a patient S/ P colectomy due to colon cancer familial adenomatous polyposis history of intra-abdominal abscess Plan on Vancomycin and Zosyn day 3 and will repeat PCT; cultures continue to be negative - may de-escalate to PO antibiotics (PO Doxycycline and Augmentin) to complete 4-7 days of therapy - discussed with Dr. Luna, with outpatient follow up with PMD
[2018-03-13 13:33] VITALS: BP 97/64; PULSE 71; RESP 14; TEMP 96.7; O2SAT 97
[2018-03-13] MEDS: Enoxaparin 40 mg Syringe SC SCH (13:36)
[2018-03-13] MEDS: Sodium Chloride 0.9% 1,000 ML IV SCH (13:42)
--- NOTE | 2018-03-13 14:55 | CP.PCM.DIS ---
<Valentine Poe L - Last Filed: 03/13/18 23:05> Provider - Provider Date of Admission: 03/10/18 21:13 Attending physician: Lee Luna MD Primary care physician: Mike Strauss MD Consults: ID: Dr. Elkins Pulmonology: Dr. Madrigal Time Spent in preparation of Discharge (in minutes): 45 Diagnosis - Discharge Diagnosis (1) Aspiration pneumonia due to inhalation of vomitus Status: Resolved Priority: High (2) Abdominal pain Status: Resolved Priority: Medium (3) Pleuritic chest pain Status: Resolved Priority: Medium (4) Familial adenomatous polyposis Status: Chronic Priority: Medium (5) History of colon cancer Status: Chronic Priority: Medium (6) Anemia Status: Chronic Priority: Medium Hospital Course - Lab Results Lab Results: Most Recent Lab Values WBC 2.2 10^3/ul (4.5-11.0) L* D 03/13/18 09:45 RBC 4.01 10^6/uL (3.5-6.1) 03/13/18 09:45 Hgb 9.0 g/dL (12.0-16.0) L 03/13/18 09:45 Hct 28.9 % (36.0-48.0) L 03/13/18 09:45 MCV 72.1 fl (80.0-105.0) L 03/13/18 09:45 MCH 22.4 pg (25.0-35.0) L 03/13/18 09:45 MCHC 31.1 g/dl (31.0-37.0) 03/13/18 09:45 RDW 20.6 % (11.5-14.5) H 03/13/18 09:45 Plt Count 163 10^3/uL (120.0-450.0) 03/13/18 09:45 MPV 9.0 fl (7.0-11.0) 03/13/18 09:45 Gran % 31.4 % (50.0-68.0) L 03/13/18 09:45 Lymph % (Auto) 58.6 % (22.0-35.0) H 03/13/18 09:45 Andrews % (Auto) 7.2 % (1.0-6.0) H 03/13/18 09:45 Eos % (Auto) 2.3 % (1.5-5.0) 03/13/18 09:45 Baso % (Auto) 0.5 % (0.0-3.0) 03/13/18 09:45 Gran # 0.70 (1.4-6.5) L 03/13/18 09:45 Lymph # (Auto) 1.3 (1.2-3.4) 03/13/18 09:45 Andrews # (Auto) 0.2 (0.1-0.6) 03/13/18 09:45 Eos # (Auto) 0.1 (0.0-0.7) 03/13/18 09:45 Baso # (Auto) 0.01 K/mm3 (0.0-2.0) 03/13/18 09:45 PT 13.7 SECONDS (9.4-12.5) H 03/10/18 16:28 INR 1.20 (0.93-1.08) H 03/10/18 16:28 APTT 33.5 Seconds (25.1-36.5) 03/10/18 16:28 D-Dimer, Quantitative 599 ng/mL (0-243) H 03/10/18 16:28 pO2 55 mm/Hg (30-55) 03/10/18 16:28 VBG pH 7.39 (7.32-7.43) 03/10/18 16:28 VBG pCO2 52.0 (40-60) 03/10/18 16:28 VBG HCO3 31.5 mmol/l (21-28) H 03/10/18 16:28 VBG Total CO2 33.1 mmol.L (22-28) H 03/10/18 16:28 VBG O2 Sat (Calc) 89.2 % (40-65) H 03/10/18 16:28 VBG Base Excess 5.2 mmol/L (0.0-2.0) H 03/10/18 16:28 VBG Potassium 4.3 mmol/L (3.6-5.2) 03/10/18 16:28 Sodium 138.0 mmol/L (132-148) 03/10/18 16:28 Chloride 104.0 mmol/L (98-107) 03/10/18 16:28 Glucose 89 mg/dl (65-105) 03/10/18 16:28 Lactate 1.1 mmol/L (0.7-2.1) 03/10/18 16:28 FiO2 21.0 % 03/10/18 16:28 Sodium 143 mmol/L (132-148) 03/13/18 09:45 Potassium 4.1 mmol/L (3.6-5.0) 03/13/18 09:45 Chloride 107 mmol/L (98-107) 03/13/18 09:45 Carbon Dioxide 23 mmol/L (21-33) 03/13/18 09:45 Anion Gap 17 (10-20) 03/13/18 09:45 BUN 4 mg/dL (7-21) L 03/13/18 09:45 Creatinine 0.7 mg/dl (0.7-1.2) 03/13/18 09:45 Est GFR ( Amer) > 60 03/13/18 09:45 Est GFR (Non-Af Amer) > 60 03/13/18 09:45 Random Glucose 89 mg/dL (70-110) 03/13/18 09:45 Calcium 9.2 mg/dL (8.4-10.5) 03/13/18 09:45 Phosphorus 4.2 mg/dL (2.5-4.5) 03/10/18 16:28 Magnesium 1.8 mg/dL (1.7-2.2) 03/10/18 16:28 Total Bilirubin 0.3 mg/dL (0.2-1.3) 03/13/18 09:45 AST 9 U/L (14-36) L D 03/13/18 09:45 ALT 18 U/L (7-56) 03/13/18 09:45 Alkaline Phosphatase 40 U/L (38-126) 03/13/18 09:45 Lactate Dehydrogenase 352 U/L (333-699) 03/10/18 17:05 Total Creatine Kinase < 20 U/L (35-230) L 03/10/18 17:05 Troponin I < 0.01 ng/mL 03/10/18 17:05 Total Protein 6.4 g/dL (5.8-8.3) 03/13/18 09:45 Albumin 3.4 g/dL (3.0-4.8) 03/13/18 09:45 Globulin 3.0 gm/dL 03/13/18 09:45 Albumin/Globulin Ratio 1.1 (1.1-1.8) 03/13/18 09:45 Procalcitonin 0.84 NG/ML (0.19-0.49) H 03/10/18 22:53 Venous Blood Potassium 4.3 mmol/L (3.6-5.2) 03/10/18 16:28 Urine Color Yellow (YELLOW) 03/10/18 18:05 Urine Appearance Clear (CLEAR) 03/10/18 18:05 Urine pH 8.5 (4.7-8.0) 03/10/18 18:05 Ur Specific [place] 1.010 (1.005-1.035) 03/10/18 18:05 Urine Protein Negative mg/dL (<30 mg/dL) 03/10/18 18:05 Urine Glucose (UA) Negative mg/dL (NEGATIVE) 03/10/18 18:05 Urine Ketones Negative mg/dL (NEGATIVE) 03/10/18 18:05 Urine Blood Negative (NEGATIVE) 03/10/18 18:05 Urine Nitrate Negative (NEGATIVE) 03/10/18 18:05 Urine Bilirubin Negative (NEGATIVE) 03/10/18 18:05 Urine Urobilinogen 1.0 E.U./dL (<1 E.U./dL) H 03/10/18 18:05 Ur Leukocyte Esterase Negative Jerry/uL (NEGATIVE) 03/10/18 18:05 Vancomycin Trough 13.3 ug/mL (5.0-10.0) H 03/13/18 09:45 - Hospital Course Hospital Course: Patient is a 27 year old female with a past medical history of colon cancer s/p colectomy, Familial Adenomatous Polyposis, and anemia who presented to the [facility] ER with complaints of shortness of breath due to aspiration pneumonia. During the patient's stay she underwent imaging including CT sinus which was unremarkable, and CT chest which showed multifocal infiltrates primarily affecting right lung, to lesser extent left lung consistent with infectious/ inflammatory etiologies. Septic workup was done including blood cultures which were negative x2 for 48 hours. Pulmonology was consulted in addition to ID. Patient was then placed on vancomycin and zosyn. Patient also had an elevated d- dimer labs, so a V/Q scan was done which showed low probability of PE. Patient was medically optimized and discharged with albuterol HFA, augmentin, and doxycycline. She was instructed to follow up with her primary care doctor within a week. She was also instructed to return to the ED if symptoms return or worsen. Discharge Exam - Head Exam Head Exam: ATRAUMATIC, NORMAL INSPECTION, NORMOCEPHALIC - Eye Exam Eye Exam: EOMI, Normal appearance, PERRL - ENT Exam ENT Exam: Mucous Membranes Moist, Normal External Ear Exam - Neck Exam Neck exam: Full Rom - Respiratory Exam Respiratory Exam: NORMAL BREATHING PATTERN, UNREMARKABLE - Cardiovascular Exam Cardiovascular Exam: REGULAR RHYTHM, +S1, +S2 - GI/Abdominal Exam GI & Abdominal Exam: Normal Bowel Sounds, Soft, Unremarkable. absent: Organomegaly, Rebound, Rigid - Extremities Exam Extremities exam: full ROM - Back Exam Back exam: FULL ROM - Neurological Exam Neurological exam: Alert, CN II-XII Intact, Normal Gait, Oriented x3 - Psychiatric Exam Psychiatric exam: Normal Affect, Normal Mood - Skin Skin Exam: Dry, Intact, Normal Color, Warm Discharge Plan - Discharge Medications Prescriptions: Albuterol HFA [Ventolin HFA 90 mcg/actuation (8 g)] 1 puff IH Q4H #1 inhaler Amoxicillin/Clavulanate [Augmentin 875 MG-125 MG] 1 tab PO Q12 7 Days #14 tab Doxycycline Hyclate 100 mg PO Q12 7 Days #14 cap - Follow Up Plan Condition: FAIR Disposition: HOME/ ROUTINE Patient education suggested?: Yes Instructions: Pneumonia in Adults, Diet and Health, Why Vaccines Are Important for Everyone, Acute Abdominal Pain (GEN) Additional Instructions: You have been discharged with albuterol HFA, augmentin, doxycycline. Please take them as prescribed. Please follow up with your primary doctor Dr. Strauss within one week. Please follow up with your colorectal surgeon within one week. Please resume regular diet upon discharge. Please return to normal activity level. Please return to ED if symptoms return or worsen. Referrals: Mike Strauss MD [Primary Care Provider] - <Lee Luna - Last Filed: 03/14/18 15:44> Provider - Provider Date of Admission: 03/10/18 21:13 Attending physician: Lee Luna MD Primary care physician: Mike Strauss MD Hospital Course - Lab Results Lab Results: Most Recent Lab Values WBC 2.2 10^3/ul (4.5-11.0) L* D 03/13/18 09:45 RBC 4.01 10^6/uL (3.5-6.1) 03/13/18 09:45 Hgb 9.0 g/dL (12.0-16.0) L 03/13/18 09:45 Hct 28.9 % (36.0-48.0) L 03/13/18 09:45 MCV 72.1 fl (80.0-105.0) L 03/13/18 09:45 MCH 22.4 pg (25.0-35.0) L 03/13/18 09:45 MCHC 31.1 g/dl (31.0-37.0) 03/13/18 09:45 RDW 20.6 % (11.5-14.5) H 03/13/18 09:45 Plt Count 163 10^3/uL (120.0-450.0) 03/13/18 09:45 MPV 9.0 fl (7.0-11.0) 03/13/18 09:45 Gran % 31.4 % (50.0-68.0) L 03/13/18 09:45 Lymph % (Auto) 58.6 % (22.0-35.0) H 03/13/18 09:45 Andrews % (Auto) 7.2 % (1.0-6.0) H 03/13/18 09:45 Eos % (Auto) 2.3 % (1.5-5.0) 03/13/18 09:45 Baso % (Auto) 0.5 % (0.0-3.0) 03/13/18 09:45 Gran # 0.70 (1.4-6.5) L 03/13/18 09:45 Lymph # (Auto) 1.3 (1.2-3.4) 03/13/18 09:45 Andrews # (Auto) 0.2 (0.1-0.6) 03/13/18 09:45 Eos # (Auto) 0.1 (0.0-0.7) 03/13/18 09:45 Baso # (Auto) 0.01 K/mm3 (0.0-2.0) 03/13/18 09:45 PT 13.7 SECONDS (9.4-12.5) H 03/10/18 16:28 INR 1.20 (0.93-1.08) H 03/10/18 16:28 APTT 33.5 Seconds (25.1-36.5) 03/10/18 16:28 D-Dimer, Quantitative 599 ng/mL (0-243) H 03/10/18 16:28 pO2 55 mm/Hg (30-55) 03/10/18 16:28 VBG pH 7.39 (7.32-7.43) 03/10/18 16:28 VBG pCO2 52.0 (40-60) 03/10/18 16:28 VBG HCO3 31.5 mmol/l (21-28) H 03/10/18 16:28 VBG Total CO2 33.1 mmol.L (22-28) H 03/10/18 16:28 VBG O2 Sat (Calc) 89.2 % (40-65) H 03/10/18 16:28 VBG Base Excess 5.2 mmol/L (0.0-2.0) H 03/10/18 16:28 VBG Potassium 4.3 mmol/L (3.6-5.2) 03/10/18 16:28 Sodium 138.0 mmol/L (132-148) 03/10/18 16:28 Chloride 104.0 mmol/L (98-107) 03/10/18 16:28 Glucose 89 mg/dl (65-105) 03/10/18 16:28 Lactate 1.1 mmol/L (0.7-2.1) 03/10/18 16:28 FiO2 21.0 % 03/10/18 16:28 Sodium 143 mmol/L (132-148) 03/13/18 09:45 Potassium 4.1 mmol/L (3.6-5.0) 03/13/18 09:45 Chloride 107 mmol/L (98-107) 03/13/18 09:45 Carbon Dioxide 23 mmol/L (21-33) 03/13/18 09:45 Anion Gap 17 (10-20) 03/13/18 09:45 BUN 4 mg/dL (7-21) L 03/13/18 09:45 Creatinine 0.7 mg/dl (0.7-1.2) 03/13/18 09:45 Est GFR ( Amer) > 60 03/13/18 09:45 Est GFR (Non-Af Amer) > 60 03/13/18 09:45 Random Glucose 89 mg/dL (70-110) 03/13/18 09:45 Calcium 9.2 mg/dL (8.4-10.5) 03/13/18 09:45 Phosphorus 4.2 mg/dL (2.5-4.5) 03/10/18 16:28 Magnesium 1.8 mg/dL (1.7-2.2) 03/10/18 16:28 Total Bilirubin 0.3 mg/dL (0.2-1.3) 03/13/18 09:45 AST 9 U/L (14-36) L D 03/13/18 09:45 ALT 18 U/L (7-56) 03/13/18 09:45 Alkaline Phosphatase 40 U/L (38-126) 03/13/18 09:45 Lactate Dehydrogenase 352 U/L (333-699) 03/10/18 17:05 Total Creatine Kinase < 20 U/L (35-230) L 03/10/18 17:05 Troponin I < 0.01 ng/mL 03/10/18 17:05 Total Protein 6.4 g/dL (5.8-8.3) 03/13/18 09:45 Albumin 3.4 g/dL (3.0-4.8) 03/13/18 09:45 Globulin 3.0 gm/dL 03/13/18 09:45 Albumin/Globulin Ratio 1.1 (1.1-1.8) 03/13/18 09:45 Procalcitonin 0.17 NG/ML (0.19-0.49) L 03/13/18 09:45 Venous Blood Potassium 4.3 mmol/L (3.6-5.2) 03/10/18 16:28 Urine Color Yellow (YELLOW) 03/10/18 18:05 Urine Appearance Clear (CLEAR) 03/10/18 18:05 Urine pH 8.5 (4.7-8.0) 03/10/18 18:05 Ur Specific [place] 1.010 (1.005-1.035) 03/10/18 18:05 Urine Protein Negative mg/dL (<30 mg/dL) 03/10/18 18:05 Urine Glucose (UA) Negative mg/dL (NEGATIVE) 03/10/18 18:05 Urine Ketones Negative mg/dL (NEGATIVE) 03/10/18 18:05 Urine Blood Negative (NEGATIVE) 03/10/18 18:05 Urine Nitrate Negative (NEGATIVE) 03/10/18 18:05 Urine Bilirubin Negative (NEGATIVE) 03/10/18 18:05 Urine Urobilinogen 1.0 E.U./dL (<1 E.U./dL) H 03/10/18 18:05 Ur Leukocyte Esterase Negative Jerry/uL (NEGATIVE) 03/10/18 18:05 Vancomycin Trough 13.3 ug/mL (5.0-10.0) H 03/13/18 09:45 Mycoplasma pneumon IgG 5.00 (<=0.90) H 03/11/18 08:00 Mycoplasma pneumon IgM 632 U/mL (<770) 03/11/18 08:00 Attending/Attestation - Attestation I have personally seen and examined this patient.: Yes I have fully participated in the care of the patient.: Yes I have reviewed all pertinent clinical information, including history, physical exam and plan: Yes Notes (Text): 03/14/18 15:40 Attending note; Patient seen and examined with resident. Patient is afebrile and nontoxic. Pulmonary congestion resolved. Denies any cough. Patient is a 27 year old female with a past medical history significant for colon cancer s/p colectomy, Familial Adenomatous Polyposis, and anemia is presented admitted for multifocal pneumonia likely secondary to aspiration. Treated with vancomycin and Zosyn. Blood culture is negative so far. Continue guaifenesin with codeine as needed for cough. Continue DuoNeb treatment. Pleuritic chest pain with cough ;IV Dilaudid for pain management. ID evaluation appreciated. Blood culture is negative. Repeat pro-calcitonin is negative. Mycoplasma IgM is negative IgG is elevated. Patient will be discharged home with Augmentin and doxycycline. Constipation; continue Colace home. Needs close outpatient colorectal surgery follow-up in [place]. Upon discharge the patient will follow up with PMD Dr. Strauss.
== END 2018-03-13 21:13 | disposition home or self-care (01) | DRG 179 ==
LOC: ED 15:19 → ERH 21:13 → 5RNO 22:35
PROVIDERS: ADMIT Internal Medicine; ATTEND Internal Medicine
PROC: 3E0F7GC Introduction of Other Therapeutic Substance into Respiratory Tract, Via Natural or Artificial Opening (ICD-10-PCS; principal; 2018-03-11)
DX: J69.0 Pneumonitis due to inhalation of food and vomit (principal); D64.9 Anemia, unspecified; K59.09 Other constipation; Y95 Nosocomial condition; Z85.038 Personal history of other malignant neoplasm of large intestine; Z90.49 Acquired absence of other specified parts of digestive tract

== ENCOUNTER 2018-10-25 09:29 | Inpatient (IN) | payer BC, MEDICAID, OTHER ==
[2018-10-25 09:36] VITALS: BMI 20.6
--- NOTE | 2018-10-25 09:49 | ED PDOC ---
Arrival/HPI - General Chief Complaint: Abnormal Skin Integrity Time Seen by Provider: 10/25/18 09:39 Historian: Patient - History of Present Illness Narrative History of Present Illness (Text): 10/25/18 09:41 27 y/o female, pmh including colon cancer/anemia, nkda, c/o rt. medial gluteal pain x 3 days with no fall or trauma. Aching pain, aggravated by touching and sitting, no fever or chills, no perianal pain, no nausea/vomiting/diarrhea, no night sweat, no dizziness, no change in vision, no palpitation, no other medical or psychological complaints. 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 - Pulmonary Hx Respiratory Disorders: No - Neurological Hx Neurological Disorder: No - HEENT Hx HEENT Disorder: No (WEARS RX GLASSES) - Renal Hx Renal Disorder: No - Endocrine/Metabolic Hx Endocrine Disorders: No - Hematological/Oncological Hx Blood Disorders: Yes Hx Anemia: Yes Hx Cancer: Yes (Colon Cancer) Hx Chemotherapy: Yes (PO) - Integumentary Hx Dermatological Disorder: Yes (SCAR MID ABDOMEN SX) - Musculoskeletal/Rheumatological Hx Falls: No - Gastrointestinal Hx Gastrointestinal Disorders: Yes Hx Colostomy: Yes Other/Comment: Gastritis - Genitourinary/Gynecological Hx Genitourinary Disorders: No - Psychiatric Hx Emotional Abuse: No Hx Physical Abuse: No Hx Substance Use: No - Surgical History Hx Appendectomy: Yes Other/Comment: Colostomy - Anesthesia Hx Anesthesia: Yes Hx Anesthesia Reactions: No Hx Malignant Hyperthermia: No - Suicidal Assessment Feels Threatened In Home Enviroment: No Family/Social History - Physician Review Nursing Documentation Reviewed: Yes Family/Social History: Unknown Family HX Smoking Status: Never Smoked Hx Alcohol Use: No Hx Substance Use: No Hx Substance Use Treatment: No Allergies/Home Meds Allergies/Adverse Reactions: Allergies iohexol Allergy (Verified 10/25/18 13:14) URTICARIA Review of Systems - Review of Systems Constitutional: absent: Fatigue, Fevers Eyes: absent: Vision Changes ENT: absent: Hearing Changes Respiratory: absent: SOB, Cough Cardiovascular: absent: Chest Pain Gastrointestinal: absent: Abdominal Pain, Diarrhea, Nausea, Vomiting Musculoskeletal: Myalgias. absent: Arthralgias, Back Pain Skin: absent: Rash, Pruritis Neurological: absent: Headache, Dizziness Psychiatric: absent: Anxiety, Depression, Suicidal Ideation Physical Exam Pain Distress: Severe - Systems Exam Head: Present: Atraumatic, Normocephalic Pupils: Present: PERRL Extroacular Muscles: Present: EOMI Conjunctiva: Present: Normal Mouth: Present: Moist Mucous Membranes Neck: Present: Normal Range of Motion Respiratory/Chest: Present: Clear to Auscultation, Good Air Exchange. No: Respiratory Distress, Accessory Muscle Use Cardiovascular: Present: Regular Rate and Rhythm, Normal S1, S2. 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 No: Occult Blood, Rectal Tenderness, Gross Blood, Melena, Hemorrhoids, Fissures, Nodule/Mass/Lesions Back: Present: Normal Inspection Upper Extremity: Present: Normal Inspection. No: Cyanosis, Edema Lower Extremity: Present: Normal Inspection, NORMAL PULSES, Neurovascularly Intact, Other (+ttp on the medial aspect of the rt. gluteal cleft region. ). No: Edema Neurological: Present: GCS=15, CN II-XII Intact, Speech Normal, Motor Func Grossly Intact, Normal Cerebellar Funct, Gait Normal, Memory Normal Skin: Present: Warm, Dry, Normal Color. No: Rashes Psychiatric: Present: Alert, Oriented x 3, Normal Insight, Normal Concentration Medical Decision Making ED Course and Treatment: 10/25/18 09:55 -labs -ct -IV toradol/morphine -observe and reassess 10/25/18 13:20 -beta hcg is negataive -CT pelvis New pelvic abscess, 3.5 cm in greatest dimension, in the presacral space. Increasing presacral edema/inflammatory change compared to the prior examination. Multiple bilateral fluid collections possibly abscesses or possibly representing bilateral hydrosalpinx/pyosalpinx postoperative changes. Mural thickening of the rectosigmoid colon may reflect inflammation secondary to adjacent infection/inflammation. -Labs show no acute findings except hgb 6.6 from 9.0 (2 units of PRBC ordered) -UA ordered and pending result. -Pt. refused guaiac examination. -I spoke to the secretary to the vice president Dr. Thorne, will come to the ER to evaluate the patient. IV cipro and flagyl ordered. 10/25/18 13:58 -I spoke to medical attending Dr. Aranda, discussed about this and surgical consult team is on board, agreed to admit to his service. -Dr. Mati Ryan, secretary to the vice president, evaluated the patient, will speak to Dr. Dre Dominguez (as the patient been seen by Dr. Dre Dominguez in the past). -EKG NSR @ 77 BPM, no ST elevation or depression, no T wave inversion -Chest xray: No active disease. - RAD Interpretation Radiology Orders: Date of service: 10/25/2018 PROCEDURE: CT pelvis HISTORY: rt. medial gluteal pain, had abscess history COMPARISON: 02/02/2018 TECHNIQUE: 2.5 mm contiguous axial sections were acquired through the pelvis. Sagittal and coronal images were reformatted from the axial scan. Contrast administered: 100 mL Omnipaque 300 Total exam DLP: 274.29 mGy-cm This CT exam was performed using 1 or more of the following dose reduction techniques: Automated exposure control, adjustment of the mA and/or kV according to patient size, and/or use of iterative reconstruction technique. FINDINGS: There is a patulous loop of large bowel in the pelvis with extensive suture material about it consistent with prior anastomosis. This is unchanged from previous examination. There is mural thickening of a long segment of what is presumably sigmoid colon including this segment, consistent with nonspecific colitis. This may be reactive secondary to adjacent abscess. There are multiple low-density collections in the pelvis, increased in number from prior examination. There is a new collection of fluid and gas in the presacral space, measuring roughly 2.3 x 2.1 x 3.5 cm. It is somewhat crescentic in shape.. This was not evident previously. Consistent with abscess. Minimal mural enhancement. Phlegmonous changes seen adjacent to this. Multiple fluid collections are seen about the stool filled loop of colon described above. These may represent abscesses. However, it is also possible that this represents bilateral hydrosalpinx/pyosalpinx. They appear somewhat tubular and coiled and may interconnect. There is extensive presacral edema increased from prior examination. There are what appear to be surgical sutures at the level of the anus. This was present on prior examination as well. The uterus is unremarkable in appearance. There is no uterine mass. The ovaries are not discretely identified. There is no ascites. There is no pelvic lymphadenopathy. There is no osseous abnormality identified. IMPRESSION: New pelvic abscess, 3.5 cm in greatest dimension, in the presacral space. Increasing presacral edema/inflammatory change compared to the prior examination. Multiple bilateral fluid collections possibly abscesses or possibly representing bilateral hydrosalpinx/pyosalpinx postoperative changes. Mural thickening of the rectosigmoid colon may reflect inflammation secondary to adjacent infection/inflammation. Chest xray: Date of service: 10/25/2018 HISTORY: medical clearance COMPARISON: 03/10/2018 FINDINGS: LUNGS: No active pulmonary disease. PLEURA: No significant pleural effusion identified, no pneumothorax apparent. CARDIOVASCULAR: No aortic atherosclerotic calcification present. Normal cardiac size. No pulmonary vascular congestion. OSSEOUS STRUCTURES: No significant abnormalities. VISUALIZED UPPER ABDOMEN: Normal. OTHER FINDINGS: None. IMPRESSION: No active disease. Electric Vehicle Electrician: Radiologist - EKG Interpretation EKG Interpretation (Text): 10/25/18 15:06 NSR @ 77 BPM, no ST elevation or depression, no T wave inversion, Interpreted by ED Physician: Yes Type: 12 lead EKG - PA / FENCE ERECTOR SUPERVISOR / Resident Statement MD/DO has reviewed & agrees with the documentation as recorded. Disposition/Present on Arrival - Present on Arrival Any Indicators Present on Arrival: No History of DVT/PE: No History of Uncontrolled Diabetes: No Urinary Catheter: No History of Decub. Ulcer: No History Surgical Site Infection Following: None - Disposition Have Diagnosis and Disposition been Completed?: Yes Diagnosis: Abscess, Anemia Disposition: HOSPITALIZED Disposition Time: 13:22 Patient Plan: Admission, Telemetry Patient Problems: Current Active Problems Problem Status Onset Anemia Chronic Abscess Acute Condition: GUARDED
[2018-10-25] MEDS ORDERED: Morphine 4 mg/ml ISec IVP STA (09:51)
[2018-10-25 10:35] LABS: BASO # 0.01 K/mm3 (0.0-2.0); BASO % 0.3 % (0.0-3.0); EOS # 0.1 (0.0-0.7); EOS % 1.5 % (1.5-5.0); LYMPH # 1.5 (1.2-3.4); LYMPH % 38.2 % (22.0-35.0); MEAN CELL VOLUME 63.6 fl (80.0-105.0); MEAN CORPUSCULAR HEMOGLOBIN 17.9 pg (25.0-35.0); MEAN CORPUSCULAR HGB CONC 28.2 g/dl (31.0-37.0); MEAN PLATELET VOLUME 9.2 fl (7.0-11.0); MONO # 0.4 (0.1-0.6); MONO % 10.1 % (1.0-6.0); RBC 3.68 10^6/uL (3.5-6.1); RED CELL DISTRIBUTION WIDTH 15.5 % (11.5-14.5)
[2018-10-25 10:40] LABS: ALBUMIN 3.9 g/dL (3.0-4.8); AST/SGOT 17 U/L (14-36); BLOOD UREA NITROGEN 15 mg/dL (7-21); CALCIUM 9.3 mg/dL (8.4-10.5); GFR NON-AFRICAN AMERICAN > 60; INR 1.35; PARTIAL THROMBOPLASTIN TIME 34.8 Seconds (26.9-38.3); PROTHROMBIN TIME 15.3 SECONDS (9.4-12.5)
[2018-10-25] MEDS ORDERED: Iohexol 300 100 ML IJ ONE (10:43)
[2018-10-25 10:55] LABS: ALT/SGPT < 6 U/L (7-56)
[2018-10-25] MEDS ORDERED: DiphenhydrAMINE 50 mg/ml Inj ONE (11:35)
[2018-10-25] MEDS ORDERED: DiphenhydrAMINE 50 mg/ml Inj IVP STA (11:44)
--- NOTE | 2018-10-25 12:31 | CT ---
Date of service: 10/25/2018 PROCEDURE: CT pelvis HISTORY: rt. medial gluteal pain, had abscess history COMPARISON: 02/02/2018 TECHNIQUE: 2.5 mm contiguous axial sections were acquired through the pelvis. Sagittal and coronal images were reformatted from the axial scan. Contrast administered: 100 mL Omnipaque 300 Total exam DLP: 274.29 mGy-cm This CT exam was performed using 1 or more of the following dose reduction techniques: Automated exposure control, adjustment of the mA and/or kV according to patient size, and/or use of iterative reconstruction technique. FINDINGS: There is a patulous loop of large bowel in the pelvis with extensive suture material about it consistent with prior anastomosis. This is unchanged from previous examination. There is mural thickening of a long segment of what is presumably sigmoid colon including this segment, consistent with nonspecific colitis. This may be reactive secondary to adjacent abscess. There are multiple low-density collections in the pelvis, increased in number from prior examination. There is a new collection of fluid and gas in the presacral space, measuring roughly 2.3 x 2.1 x 3.5 cm. It is somewhat crescentic in shape.. This was not evident previously. Consistent with abscess. Minimal mural enhancement. Phlegmonous changes seen adjacent to this. Multiple fluid collections are seen about the stool filled loop of colon described above. These may represent abscesses. However, it is also possible that this represents bilateral hydrosalpinx/pyosalpinx. They appear somewhat tubular and coiled and may interconnect. There is extensive presacral edema increased from prior examination. There are what appear to be surgical sutures at the level of the anus. This was present on prior examination as well. The uterus is unremarkable in appearance. There is no uterine mass. The ovaries are not discretely identified. There is no ascites. There is no pelvic lymphadenopathy. There is no osseous abnormality identified. IMPRESSION: New pelvic abscess, 3.5 cm in greatest dimension, in the presacral space. Increasing presacral edema/inflammatory change compared to the prior examination. Multiple bilateral fluid collections possibly abscesses or possibly representing bilateral hydrosalpinx/pyosalpinx postoperative changes. Mural thickening of the rectosigmoid colon may reflect inflammation secondary to adjacent infection/inflammation.
[2018-10-25] MEDS ORDERED: Ciprofloxacin 400mg/200ml D5W 400 MG/200 ML BAG IVPB STA (13:19)
[2018-10-25] MEDS ORDERED: metroNIDAZOLE IV 500 mg/100 ml 500 MG/100 ML BAG IVPB STA (13:19)
--- NOTE | 2018-10-25 13:29 | CP.PCM.CON ---
<Mati Edmonds - Last Filed: 10/25/18 17:03> History of Present Illness - History of Present Illness History of Present Illness: Mati Edmonds, PGY-[address] Keith Ms. Owens is a 27 year old Female with a past medical history of colon cancer s/p colectomy, Familial Adenomatous Polyposis, and anemia who presents with R medial gluteal pain that started 3 days ago. Patient reports no fall or trauma. Patient describes the pain as achy, aggravated by touching and sitting on the right butt cheek. Patient reports past episode of gluteal abscess in similar location which was unable to be drained by previous surgeon. The patient underwent a colectomy in 2011 and had the reversal of the ileostomy completed in 2013. She has undergone at least 3 previous dilations of her anastamosis at [facility] for bouts of constipation in the past. Last colonoscopy was performed at another facility back in July 2018. Patient denies fever, chills, perianal pruritis/pain, nausea/vomiting/diarrhea, dizziness, headaches, change in vision, chest pain, palpitation, shortness of br eath. 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 - PULMONARY Hx Respiratory Disorders: No - NEUROLOGICAL Hx Neurological Disorder: No - HEENT Hx HEENT Problems: No (WEARS RX GLASSES) - RENAL Hx Chronic Kidney Disease: No - ENDOCRINE/METABOLIC Hx Endocrine Disorders: No - HEMATOLOGICAL/ONCOLOGICAL Hx Blood Disorders: Yes Hx Anemia: Yes Hx Cancer: Yes (Colon Cancer) Hx Chemotherapy: Yes (PO) - INTEGUMENTARY Hx Dermatological Problems: Yes (SCAR MID ABDOMEN SX) - MUSCULOSKELETAL/RHEUMATOLOGICAL Hx Falls: No - GASTROINTESTINAL Hx Gastrointestinal Disorders: Yes Hx Colostomy: Yes Other/Comment: Gastritis - GENITOURINARY/GYNECOLOGICAL Hx Genitourinary Disorders: No - PSYCHIATRIC Hx Emotional Abuse: No Hx Physical Abuse: No Hx Substance Use: No - SURGICAL HISTORY Hx Appendectomy: Yes Other/Comment: Colostomy - ANESTHESIA Hx Anesthesia: Yes Hx Anesthesia Reactions: No Hx Malignant Hyperthermia: No Meds Allergies/Adverse Reactions: Allergies Allergy/AdvReac Type Severity Reaction Status Date / Time iohexol Allergy URTICARIA Verified 10/25/18 13:14 - Medications Medications: Current Medications Ciprofloxacin (Cipro 400mg/200ml Dsw) 400 mg in 200 mls @ 133.3 mls/hr IVPB STAT STA; Protocol Stop: 10/25/18 14:49 Metronidazole (Flagyl) 500 mg in 100 mls @ 100 mls/hr IVPB STAT STA; Protocol Stop: 10/25/18 14:18 Physical Exam - Constitutional Appears: No Acute Distress, Older Than Stated Age - Head Exam Head Exam: ATRAUMATIC, NORMOCEPHALIC - Eye Exam Eye Exam: EOMI Pupil Exam: PERRL - ENT Exam ENT Exam: Mucous Membranes Moist - Neck Exam Neck exam: Positive for: Normal Inspection - Respiratory Exam Respiratory Exam: Clear to Auscultation Bilateral, NORMAL BREATHING PATTERN. absent: Rales, Rhonchi, Wheezes - Cardiovascular Exam Cardiovascular Exam: RRR, +S1, +S2 - GI/Abdominal Exam GI & Abdominal Exam: Normal Bowel Sounds, Soft. absent: Distended, Firm, Guarding, Rebound, Tenderness Additional comments: Midline incision scar - Rectal Exam Rectal Exam: Deferred Additional comments: Patient refused rectal exam. Tender, fluctuant 3-4 cm fluid collection in R gluteal region, nonindurated, no erythema - Back Exam Back exam: tenderness (bilateral lower back pain). absent: rash noted - Neurological Exam Neurological exam: Oriented x3 - Psychiatric Exam Psychiatric exam: Normal Affect, Normal Mood - Skin Skin Exam: Dry, Intact, Normal Color, Warm Results - Vital Signs Recent Vital Signs: Last Vital Signs Temp 98.6 F 10/25/18 09:29 Pulse 98 H 10/25/18 11:40 Resp 18 10/25/18 11:40 BP 100/59 L 10/25/18 11:40 Pulse Ox 100 10/25/18 11:40 - Labs Result Diagrams: 10/25/18 10:15 10/25/18 10:15 Labs: Laboratory Results - last 24 hr 10/25/18 10/25/18 10/25/18 10:15 10:15 10:15 WBC RBC Hgb Hct MCV MCH MCHC RDW Plt Count MPV Neut % (Auto) Lymph % (Auto) [place] % (Auto) Eos % (Auto) Baso % (Auto) Lymph # (Auto) [place] # (Auto) Eos # (Auto) Baso # (Auto) Absolute Neuts (auto) PT 15.3 H INR 1.35 APTT 34.8 Sodium 137 Potassium 4.0 Chloride 101 Carbon Dioxide 28 Anion Gap 11 BUN 15 Creatinine 0.7 Est GFR ( Amer) > 60 Est GFR (Non-Af Amer) > 60 Random Glucose 96 Calcium 9.3 Total Bilirubin 0.3 AST 17 ALT < 6 L Alkaline Phosphatase 65 Total Protein 7.8 Albumin 3.9 Globulin 3.8 Albumin/Globulin Ratio 1.0 L Beta HCG, Quant < 2.39 BBK History Checked 10/25/18 10/25/18 10:15 12:00 WBC 4.0 L RBC 3.68 Hgb 6.6 L* D Hct 23.4 L MCV 63.6 L D MCH 17.9 L MCHC 28.2 L RDW 15.5 H Plt Count 234 MPV 9.2 Neut % (Auto) 49.9 L Lymph % (Auto) 38.2 H [place] % (Auto) 10.1 H Eos % (Auto) 1.5 Baso % (Auto) 0.3 Lymph # (Auto) 1.5 [place] # (Auto) 0.4 Eos # (Auto) 0.1 Baso # (Auto) 0.01 Absolute Neuts (auto) 1.99 PT INR APTT Sodium Potassium Chloride Carbon Dioxide Anion Gap BUN Creatinine Est GFR ( Amer) Est GFR (Non-Af Amer) Random Glucose Calcium Total Bilirubin AST ALT Alkaline Phosphatase Total Protein Albumin Globulin Albumin/Globulin Ratio Beta HCG, Quant BBK History Checked Patient has bt Assessment & Plan - Assessment and Plan (Free Text) Assessment: Ms. Owens is a 27 F with PMHx colectomy with reversal of ileostomy who presents with R gluteal fluid collection. CT pelvis with contrast: New pelvic abscess, 3.5 cm in greatest dimension, in the presacral space. Increasing presacral edema/inflammatory change compared to the prior examination. Multiple bilateral fluid collections possibly abscesses or possibly representing bilateral hydrosalpinx/pyosalpinx postoperative changes. Mural thickening of the rectosigmoid colon may reflect inflammation secondary to adjacent infection/inflammation. Plan: - Severe anemia - PRBC transfusion - Pain control - IVF - ABx - Consider consulting IR for possible drainage Further recs per Dr. Sagar Edmonds, PGY-1 <Dre Keith - Last Filed: 10/26/18 10:08> Meds - Medications Medications: Current Medications Famotidine (Pepcid) 20 mg IVP DAILY [facility] Last Admin: 10/25/18 14:53 Dose: 20 mg Hydromorphone HCl (Dilaudid) 0.5 mg IVP Q4H PRN PRN Reason: Pain, severe (8-10) Last Admin: 10/26/18 08:35 Dose: 0.5 mg Piperacillin Sod/Tazobactam Sod (Zosyn 3.375 In Ns 100ml) 100 mls @ 25 mls/hr IVPB Q8 EKTA; Protocol Stop: 11/01/18 15:46 Last Admin: 10/26/18 05:18 Dose: 25 mls/hr Results - Vital Signs Recent Vital Signs: Last Vital Signs Temp 98.6 F 10/26/18 06:00 Pulse 90 10/26/18 06:00 Resp 20 10/26/18 06:00 BP 93/53 L 10/26/18 06:00 Pulse Ox 94 L 10/26/18 06:00 - Labs Result Diagrams: 10/25/18 10:15 10/25/18 10:15 Labs: Laboratory Results - last 24 hr 10/25/18 10/25/18 10/25/18 10:15 10:15 10:15 WBC RBC Hgb Hct MCV MCH MCHC RDW Plt Count MPV Neut % (Auto) Lymph % (Auto) [place] % (Auto) Eos % (Auto) Baso % (Auto) Lymph # (Auto) [place] # (Auto) Eos # (Auto) Baso # (Auto) Absolute Neuts (auto) PT 15.3 H INR 1.35 APTT 34.8 Sodium 137 Potassium 4.0 Chloride 101 Carbon Dioxide 28 Anion Gap 11 BUN 15 Creatinine 0.7 Est GFR ( Amer) > 60 Est GFR (Non-Af Amer) > 60 Random Glucose 96 Calcium 9.3 Iron TIBC % Saturation Transferrin Ferritin Total Bilirubin 0.3 AST 17 ALT < 6 L Alkaline Phosphatase 65 Total Protein 7.8 Albumin 3.9 Globulin 3.8 Albumin/Globulin Ratio 1.0 L Beta HCG, Quant < 2.39 Blood Type Antibody Screen Antibody Identification Crossmatch BBK History Checked 10/25/18 10/25/18 10/25/18 10:15 12:00 14:00 WBC 4.0 L RBC 3.68 Hgb 6.6 L* D Hct 23.4 L MCV 63.6 L D MCH 17.9 L MCHC 28.2 L RDW 15.5 H Plt Count 234 MPV 9.2 Neut % (Auto) 49.9 L Lymph % (Auto) 38.2 H [place] % (Auto) 10.1 H Eos % (Auto) 1.5 Baso % (Auto) 0.3 Lymph # (Auto) 1.5 [place] # (Auto) 0.4 Eos # (Auto) 0.1 Baso # (Auto) 0.01 Absolute Neuts (auto) 1.99 PT INR APTT Sodium Potassium Chloride Carbon Dioxide Anion Gap BUN Creatinine Est GFR ( Amer) Est GFR (Non-Af Amer) Random Glucose Calcium Iron 10 L TIBC 352 % Saturation 3 L Transferrin Ferritin Total Bilirubin AST ALT Alkaline Phosphatase Total Protein Albumin Globulin Albumin/Globulin Ratio Beta HCG, Quant Blood Type A POSITIVE Antibody Screen Positive Antibody Identification Non Specific Antibody Crossmatch See Detail BBK History Checked Patient has bt 10/25/18 10/25/18 14:00 14:00 WBC RBC Hgb Hct MCV MCH MCHC RDW Plt Count MPV Neut % (Auto) Lymph % (Auto) [place] % (Auto) Eos % (Auto) Baso % (Auto) Lymph # (Auto) [place] # (Auto) Eos # (Auto) Baso # (Auto) Absolute Neuts (auto) PT INR APTT Sodium Potassium Chloride Carbon Dioxide Anion Gap BUN Creatinine Est GFR ( Amer) Est GFR (Non-Af Amer) Random Glucose Calcium Iron TIBC % Saturation Transferrin 252.83 Ferritin 11.3 Total Bilirubin AST ALT Alkaline Phosphatase Total Protein Albumin Globulin Albumin/Globulin Ratio Beta HCG, Quant Blood Type Antibody Screen Antibody Identification Crossmatch BBK History Checked Assessment & Plan - Assessment and Plan (Free Text) Plan: Dx Presacral Abscess - needs Perrcutaneous drainage This consult done under my direct supervision Jade Keith MD FACS
--- NOTE | 2018-10-25 14:11 | RAD ---
Date of service: 10/25/2018 HISTORY: medical clearance COMPARISON: 03/10/2018 FINDINGS: LUNGS: No active pulmonary disease. PLEURA: No significant pleural effusion identified, no pneumothorax apparent. CARDIOVASCULAR: No aortic atherosclerotic calcification present. Normal cardiac size. No pulmonary vascular congestion. OSSEOUS STRUCTURES: No significant abnormalities. VISUALIZED UPPER ABDOMEN: Normal. OTHER FINDINGS: None. IMPRESSION: No active disease.
[2018-10-25] MEDS ORDERED: Morphine 2 mg/ml ISec IVP PRN (14:35)
--- NOTE | 2018-10-25 14:37 | CP.PCM.HP ---
<Tavarez,Igor - Last Filed: 10/25/18 15:28> History of Present Illness - History of Present Illness History of Present Illness: Igor Tavarez Internal Medicine Resident- H&P on Behalf of Hospitalist Team Subjective CC: Gluteal Pain HPI: Patient is a 27 year old female with a past medical history of FAP, colon cancer, and anemia who presents to the emergency department for evaluation and treatment of gluteal pain which began approximately 3 days ago with no specific provoking event. States pain originates and remains localized in the right inner gluteal region. Characterizes the pain as being dull in nature and is currently rated a 5/10 s/p 4mg of IV morphine x 1. Pain is made worse with palpation and pressure. Denies associated fever, chills, dizziness, headache, chest pain, SOB, abdominal pain, nausea, vomiting, diarrhea, constipation, urinary symptoms, and vaginal discharge. 12 point ROS negative except as indicated in HPI Past Medical History: FAP, colon cancer Past Surgical History: Bone marrow biopsy in July 2012, Total colectomy in September 2012 with J-pouch reversal in 2013, ASD repair at age 10 months Allergies: NKDA Social History: admits to social ETOH use, denies tobacco use, denies illicit drug use Family History: father- htn Medications: Mother with FAP, Father with HTN and Parkinsons, maternal grandmother with RA Physical Examination: - Constitutional Appears: No Acute Distress - Head Exam Head Exam: ATRAUMATIC, NORMOCEPHALIC - Eye Exam Eye Exam: EOMI - ENT Exam ENT Exam: Mucous Membranes Moist - Neck Exam Neck exam: Positive for: Normal Inspection - Respiratory Exam Respiratory Exam: Clear to Auscultation Bilateral, NORMAL BREATHING PATTERN. absent: Rales, Rhonchi, Wheezes - Cardiovascular Exam Cardiovascular Exam: RRR, +S1, +S2 - GI/Abdominal Exam GI & Abdominal Exam: Normal Bowel Sounds, Soft, midline abdominal scar. absent: Distended, Firm, Guarding, Rebound, Tenderness - Neurological Exam Neurological exam: Awake, alert, responds to verbal stimuli, follows commands, and moves extremities past midline CN II-XII Intact, Oriented x3 - Psychiatric Exam Psychiatric exam: Normal Affect, Normal Mood Assessment and Plan: Patient is a 27 year old female with a past medical history of FAP, colon cancer, and anemia who was admitted for evaluation and treatment of gluteal pain. Patient was found to have pelvic abscess on imaging and to be anemic with a Hgb of 6.6 Patient in the ED was given cipro 400 mg IV x 1, flagyl 500mg IV x 1, and consented to receive 2 units of pRBCs. Gluteal Abscess - 10/25/2018 CT pelvis with contrast: New pelvic abscess, 3.5 cm in greatest dimension, in the presacral space. Increasing presacral edema/inflammatory change compared to the prior examination. Multiple bilateral fluid collections possibly abscesses or possibly representing bilateral hydrosalpinx/pyosalpinx postoperative changes. Mural thickening of the rectosigmoid colon may reflect inflammation secondary to adjacent infection/inflammation. - 10/25/2018 transvaginal ultrasound ordered and pending- rule out ovarian cyst and hydrosalpinx - pain control- morphine 1mg q4 prn moderate pain, morphine 1mg q4 severe pain - start zosyn 3.375mg q8h - wound culture ordered and pending - infectious disease consulted (Dr. Henderson)- appreciate recommendations - surgery consulted (Dr. Keith)- appreciate recommendations - interventional radiology consulted (Dr. Prince)- appreciate recommendations Anemia - microcytic - HgB less than 7 on admit - transfuse 2units pRBCS - iron, TIBC, ferritin, transferrin ordered and pending - monitor closely via AM CBC Prophylaxis - DVT ppx- SCDs - GI ppx- famotidine 20mg IV daily Patient case reviewed with and plan approved by attending physician, Dr. Luna. 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 - PULMONARY Hx Respiratory Disorders: No - NEUROLOGICAL Hx Neurological Disorder: No - HEENT Hx HEENT Problems: No (WEARS RX GLASSES) - RENAL Hx Chronic Kidney Disease: No - ENDOCRINE/METABOLIC Hx Endocrine Disorders: No - HEMATOLOGICAL/ONCOLOGICAL Hx Blood Disorders: Yes Hx Anemia: Yes Hx Cancer: Yes (Colon Cancer) Hx Chemotherapy: Yes (PO) - INTEGUMENTARY Hx Dermatological Problems: Yes (SCAR MID ABDOMEN SX) - MUSCULOSKELETAL/RHEUMATOLOGICAL Hx Falls: No - GASTROINTESTINAL Hx Gastrointestinal Disorders: Yes Hx Colostomy: Yes Other/Comment: Gastritis - GENITOURINARY/GYNECOLOGICAL Hx Genitourinary Disorders: No - PSYCHIATRIC Hx Emotional Abuse: No Hx Physical Abuse: No Hx Substance Use: No - SURGICAL HISTORY Hx Appendectomy: Yes Other/Comment: Colostomy - ANESTHESIA Hx Anesthesia: Yes Hx Anesthesia Reactions: No Hx Malignant Hyperthermia: No Meds Allergies/Adverse Reactions: Allergies Allergy/AdvReac Type Severity Reaction Status Date / Time iohexol Allergy URTICARIA Verified 10/25/18 13:14 Results - Vital Signs Recent Vital Signs: Last Vital Signs Temp 98.6 F 10/25/18 09:29 Pulse 98 H 10/25/18 11:40 Resp 18 10/25/18 11:40 BP 100/59 L 10/25/18 11:40 Pulse Ox 100 10/25/18 11:40 - Labs Result Diagrams: 10/25/18 10:15 10/25/18 10:15 Labs: Laboratory Results - last 24 hr 10/25/18 10/25/18 10/25/18 10:15 10:15 10:15 WBC RBC Hgb Hct MCV MCH MCHC RDW Plt Count MPV Neut % (Auto) Lymph % (Auto) [place] % (Auto) Eos % (Auto) Baso % (Auto) Lymph # (Auto) [place] # (Auto) Eos # (Auto) Baso # (Auto) Absolute Neuts (auto) PT 15.3 H INR 1.35 APTT 34.8 Sodium 137 Potassium 4.0 Chloride 101 Carbon Dioxide 28 Anion Gap 11 BUN 15 Creatinine 0.7 Est GFR ( Amer) > 60 Est GFR (Non-Af Amer) > 60 Random Glucose 96 Calcium 9.3 Total Bilirubin 0.3 AST 17 ALT < 6 L Alkaline Phosphatase 65 Total Protein 7.8 Albumin 3.9 Globulin 3.8 Albumin/Globulin Ratio 1.0 L Beta HCG, Quant < 2.39 Crossmatch BBK History Checked 10/25/18 10/25/18 10:15 12:00 WBC 4.0 L RBC 3.68 Hgb 6.6 L* D Hct 23.4 L MCV 63.6 L D MCH 17.9 L MCHC 28.2 L RDW 15.5 H Plt Count 234 MPV 9.2 Neut % (Auto) 49.9 L Lymph % (Auto) 38.2 H [place] % (Auto) 10.1 H Eos % (Auto) 1.5 Baso % (Auto) 0.3 Lymph # (Auto) 1.5 [place] # (Auto) 0.4 Eos # (Auto) 0.1 Baso # (Auto) 0.01 Absolute Neuts (auto) 1.99 PT INR APTT Sodium Potassium Chloride Carbon Dioxide Anion Gap BUN Creatinine Est GFR ( Amer) Est GFR (Non-Af Amer) Random Glucose Calcium Total Bilirubin AST ALT Alkaline Phosphatase Total Protein Albumin Globulin Albumin/Globulin Ratio Beta HCG, Quant Crossmatch See Detail BBK History Checked Patient has bt <Lee Luna - Last Filed: 10/26/18 16:45> Results - Vital Signs Recent Vital Signs: Last Vital Signs Temp 98.6 F 10/26/18 06:00 Pulse 90 10/26/18 06:00 Resp 20 10/26/18 06:00 BP 93/53 L 10/26/18 06:00 Pulse Ox 94 L 10/26/18 06:00 - Labs Result Diagrams: 10/26/18 10:10 10/26/18 10:10 Labs: Laboratory Results - last 24 hr 10/25/18 10/25/18 10/25/18 10:15 12:00 14:00 WBC RBC Hgb 6.6 L* D Hct MCV MCH MCHC RDW Plt Count MPV Neut % (Auto) Lymph % (Auto) [place] % (Auto) Eos % (Auto) Baso % (Auto) Lymph # (Auto) [place] # (Auto) Eos # (Auto) Baso # (Auto) Absolute Neuts (auto) Sodium Potassium Chloride Carbon Dioxide Anion Gap BUN Creatinine Est GFR ( Amer) Est GFR (Non-Af Amer) Random Glucose Calcium Phosphorus Magnesium Transferrin 252.83 Ferritin Total Bilirubin AST ALT Alkaline Phosphatase Total Protein Albumin Globulin Albumin/Globulin Ratio Carcinoembryonic Ag Blood Type A POSITIVE Antibody Screen Positive Antibody Identification Non Specific Antibody Crossmatch See Detail BBK History Checked Patient has bt 10/25/18 10/26/18 10/26/18 14:00 10:10 10:10 WBC 5.2 D RBC 3.97 Hgb 8.3 L Hct 26.9 L MCV 67.8 L D MCH 20.9 L MCHC 30.9 L RDW 21.6 H Plt Count 232 MPV 9.5 Neut % (Auto) 66.6 Lymph % (Auto) 21.6 L [place] % (Auto) 10.3 H Eos % (Auto) 1.1 L Baso % (Auto) 0.4 Lymph # (Auto) 1.1 L [place] # (Auto) 0.5 Eos # (Auto) 0.1 Baso # (Auto) 0.02 Absolute Neuts (auto) 3.49 Sodium 137 Potassium 3.9 Chloride 103 Carbon Dioxide 28 Anion Gap 10 BUN 14 Creatinine 0.8 Est GFR ( Amer) > 60 Est GFR (Non-Af Amer) > 60 Random Glucose 100 Calcium 8.8 Phosphorus 4.0 Magnesium 1.9 Transferrin Ferritin 11.3 Total Bilirubin 0.9 AST 22 ALT 7 Alkaline Phosphatase 56 Total Protein 6.9 Albumin 3.5 Globulin 3.4 Albumin/Globulin Ratio 1.0 L Carcinoembryonic Ag Blood Type Antibody Screen Antibody Identification Crossmatch BBK History Checked 10/26/18 10:10 WBC RBC Hgb Hct MCV MCH MCHC RDW Plt Count MPV Neut % (Auto) Lymph % (Auto) [place] % (Auto) Eos % (Auto) Baso % (Auto) Lymph # (Auto) [place] # (Auto) Eos # (Auto) Baso # (Auto) Absolute Neuts (auto) Sodium Potassium Chloride Carbon Dioxide Anion Gap BUN Creatinine Est GFR ( Amer) Est GFR (Non-Af Amer) Random Glucose Calcium Phosphorus Magnesium Transferrin Ferritin Total Bilirubin AST ALT Alkaline Phosphatase Total Protein Albumin Globulin Albumin/Globulin Ratio Carcinoembryonic Ag < 0.3 Blood Type Antibody Screen Antibody Identification Crossmatch BBK History Checked Attending/Attestation - Attestation I have personally seen and examined this patient.: Yes I have fully participated in the care of the patient.: Yes I have reviewed all pertinent clinical information: Yes Notes (Text): 10/26/18 16:39 Attending note; Patient seen and examined with resident In the ER. Patient is alert and awake. Complaining of left lower quadrant and groin pain. Not in any acute distress. Denies any nausea, vomiting. Denies any urinary symptoms denies any fevers, chills. Denies any vaginal discharge. Patient is a 27 year old female with a past medical history of FAP, colectomy, colon cancer, and anemia who presents to the emergency department for evaluation and treatment of gluteal pain which began approximately 3 days ago with no specific provoking event. 1. Abdominal pain; CT pelvis showed new pelvic abscess and increased presacral edema, bilateral fluid collections, mural thickening of the sigmoid colon. Surgery evaluation requested. IR recommended for aspiration. 2. Questionable hydropyosalpinx; transvaginal ultrasound ordered. 3. Anemia; unit PRBC transfusion ordered. Hemoglobin is 6.3. Patient needs close follow-up with PMD, GI and surgery. Complaints insisted in detail. Monitor closely. upon Discharge the patient will follow up with PMD Dr. Strauss.
[2018-10-25 14:53] LABS: IRON 10 ug/dL (45-180)
[2018-10-25 15:02] LABS: % IRON SATURATION 3 % (20-55); TOTAL IRON BINDING CAPACITY 352 ug/dL (265-497)
--- NOTE | 2018-10-25 16:17 | US ---
Date of service: 10/25/2018 HISTORY: r/o ovarian abscess r/o hydrosalphynx COMPARISON: None available. TECHNIQUE: Transabdominal and transvaginal FINDINGS: Examination limited due to pain and inability to tolerate examination. UTERUS: Measures 9.2 x 5.0 x 6.2 cm. Normal in size and appearance. No fibroid or other mass lesion seen. ENDOMETRIUM: Measures 10 mm in diameter. Unremarkable. CERVIX: Trace endocervical fluid RIGHT OVARY: The right ovary could not be identified. The right adnexal fluid collections that were felt likely to represent hydrosalpinx/pyosalpinx on CT examination are not demonstrated on this ultrasound examination. LEFT OVARY: Not clearly identified. There is left hydrosalpinx. FREE FLUID: No significant free fluid noted. OTHER FINDINGS: None. IMPRESSION: Limited examination. Left hydrosalpinx. Right adnexa inadequately evaluated.
[2018-10-25] MEDS: Piperacillin/Tazobact 3.375 gm 100 ML IVPB SCH ×2 (18:29→22:11)
[2018-10-25] MEDS: Morphine 2 mg/ml ISec IVP PRN ×3 (19:49→23:38)
--- NOTE | 2018-10-25 23:11 | CARD ---
APPROVED REPORT Date of service: 10/25/2018 EKG Measurement Heart [id number] <Conclusion> Normal sinus rhythm Left anterior fascicular block Moderate voltage criteria for LVH, may be normal variant Abnormal ECG
[2018-10-26] MEDS ORDERED: Morphine 2 mg/ml ISec IVP STA (00:53)
[2018-10-26] MEDS: Morphine 2 mg/ml ISec IVP PRN ×2 (04:14→05:54)
[2018-10-26] MEDS: Piperacillin/Tazobact 3.375 gm 100 ML IVPB SCH ×3 (05:18→21:54)
--- NOTE | 2018-10-26 08:33 | CP.PCM.PN ---
Subjective - Date & Time of Evaluation Date of Evaluation: 10/26/18 Time of Evaluation: 07:15 - Subjective Subjective: Mati Edmonds, PGY-[address] Keith Patient seen and evaluated at bedside. No acute events reported overnight. Patient states she remains in pain emanating from the R gluteal region despite the Morphine and sees a pain specialist. Patient feels the collection is hardening today. Denies chest pain, palpitations, shortness of breath, blurry vision. Objective - Vital Signs/Intake and Output Vital Signs (last 24 hours): Temp Pulse Resp BP Pulse Ox 98.5 F 89 20 108/58 L 100 10/26/18 04:09 10/26/18 04:09 10/26/18 04:09 10/26/18 04:09 10/25/18 18:14 Intake and Output: 10/26/18 10/26/18 06:59 18:59 Intake Total 650 Balance 650 - Medications Medications: Current Medications Famotidine (Pepcid) 20 mg IVP DAILY [facility] Last Admin: 10/25/18 14:53 Dose: 20 mg Hydromorphone HCl (Dilaudid) 0.5 mg IVP Q4H PRN PRN Reason: Pain, severe (8-10) Piperacillin Sod/Tazobactam Sod (Zosyn 3.375 In Ns 100ml) 100 mls @ 25 mls/hr IVPB Q8 EKTA; Protocol Stop: 11/01/18 15:46 Last Admin: 10/26/18 05:18 Dose: 25 mls/hr - Labs Labs: 10/25/18 10:15 10/25/18 10:15 PT 15.3 SECONDS (9.4-12.5) H 10/25/18 10:15 INR 1.35 10/25/18 10:15 APTT 34.8 Seconds (26.9-38.3) 10/25/18 10:15 - Additional Findings Additional findings: - Constitutional Appears: No Acute Distress, Older Than Stated Age - Head Exam Head Exam: ATRAUMATIC, NORMOCEPHALIC - Eye Exam Eye Exam: EOMI Pupil Exam: PERRL - ENT Exam ENT Exam: Mucous Membranes Moist - Neck Exam Neck exam: Positive for: Normal Inspection - Respiratory Exam Respiratory Exam: Clear to Auscultation Bilateral, NORMAL BREATHING PATTERN. absent: Rales, Rhonchi, Wheezes - Cardiovascular Exam Cardiovascular Exam: RRR, +S1, +S2 - GI/Abdominal Exam GI & Abdominal Exam: Normal Bowel Sounds, Soft. absent: Distended, Firm, Guarding, Rebound, Tenderness Additional comments: Midline incision scar - Exam Tender, fluctuant 3-4 cm fluid collection in R gluteal region, nonindurated, no erythema - Back Exam Back exam: tenderness (bilateral lower back pain). absent: rash noted - Neurological Exam Neurological exam: Oriented x3 - Psychiatric Exam Psychiatric exam: Normal Affect, Normal Mood - Skin Skin Exam: Dry, Intact, Normal Color, Warm Assessment and Plan - Assessment and Plan (Free Text) Assessment: Ms. Owens is a 27 F with PMHx colectomy with reversal of ileostomy who presents with R gluteal fluid collection. CT pelvis with contrast: New pelvic abscess, 3.5 cm in greatest dimension, in the presacral space. Increasing presacral edema/inflammatory change compared to the prior examination. Multiple bilateral fluid collections possibly abscesses or possibly representing bilateral hydrosalpinx/pyosalpinx postoperative changes. Mural thickening of the rectosigmoid colon may reflect inflammation secondary to adjacent infection/inflammation. Plan: - Pain control - IVF, NPO - ABx - F/U IR recs for possible drainage - can begin PO diet if no IR intervention Further recs per Dr. Sagar Edmonds, PGY-1
[2018-10-26] MEDS: HYDROmorphone 0.5 mg/0.5 ml ISec IVP PRN ×4 (08:35→20:26)
--- NOTE | 2018-10-26 10:03 | CP.PCM.PN ---
<Luaks Deras - Last Filed: 10/26/18 15:01> Subjective - Date & Time of Evaluation Date of Evaluation: 10/26/18 Time of Evaluation: 07:10 - Subjective Subjective: Lukas Deras DO, PGY-1 Hospitalist Progress Note for Dr. Luna Patient was seen and examined at bedside this AM. She reports having continued p ain and that the morphine was not sufficient to relieve her pain. She denies fever/chills, CP, SOB, cough, dyspnea on exertion, nausea/vomiting, or urinary complaints. Objective - Vital Signs/Intake and Output Vital Signs (last 24 hours): Temp Pulse Resp BP Pulse Ox 98.6 F 90 20 93/53 L 94 L 10/26/18 06:00 10/26/18 06:00 10/26/18 06:00 10/26/18 06:00 10/26/18 06:00 Intake and Output: 10/26/18 10/26/18 06:59 18:59 Intake Total 650 Balance 650 - Medications Medications: Current Medications Famotidine (Pepcid) 20 mg IVP DAILY [facility] Last Admin: 10/25/18 14:53 Dose: 20 mg Hydromorphone HCl (Dilaudid) 0.5 mg IVP Q4H PRN PRN Reason: Pain, severe (8-10) Last Admin: 10/26/18 08:35 Dose: 0.5 mg Piperacillin Sod/Tazobactam Sod (Zosyn 3.375 In Ns 100ml) 100 mls @ 25 mls/hr IVPB Q8 EKTA; Protocol Stop: 11/01/18 15:46 Last Admin: 10/26/18 05:18 Dose: 25 mls/hr - Labs Labs: 10/25/18 10:15 10/25/18 10:15 PT 15.3 SECONDS (9.4-12.5) H 10/25/18 10:15 INR 1.35 10/25/18 10:15 APTT 34.8 Seconds (26.9-38.3) 10/25/18 10:15 - Constitutional Appears: Non-toxic, No Acute Distress - Head Exam Head Exam: ATRAUMATIC, NORMOCEPHALIC - Eye Exam Eye Exam: EOMI, PERRL - ENT Exam ENT Exam: Mucous Membranes Moist - Neck Exam Neck Exam: Full ROM, Normal Inspection - Respiratory Exam Respiratory Exam: Clear to Ausculation Bilateral, NORMAL BREATHING PATTERN. absent: Rales, Rhonchi, Wheezes - Cardiovascular Exam Cardiovascular Exam: REGULAR RHYTHM, RRR, +S1, +S2. absent: Gallop, Rubs, Murmur - GI/Abdominal Exam GI & Abdominal Exam: Soft, Normal Bowel Sounds. absent: Guarding, Tenderness - Extremities Exam Extremities Exam: Normal Inspection. absent: Pedal Edema - Back Exam Additional comments: R-sided gluteal abscess apparent - Neurological Exam Neurological Exam: Alert, Awake, Oriented x3 - Psychiatric Exam Psychiatric exam: Normal Affect, Normal Mood - Skin Skin Exam: Dry, Intact, Warm Assessment and Plan - Assessment and Plan (Free Text) Assessment: 27 yo F with PMH of FAP, colon cancer, and anemia is admitted for evaluation and treatment of R-sided gluteal pain. She was found to have pelvic abscess on imaging and to be anemic with a Hgb of 6.6. She is now s/p transfusion of 2 u PRBCs. Plan: Gluteal Abscess Identified on CTAP on admission Transvaginal US showed L hydrosalpinx with inadequate evaluation of right adnexa Increase pain regimen to dilaudid 0.5 mg q4h PRN Continue PRN zosyn Wound cx pending Per surgery recs, will require IR drainage and no role for surgical intervention at this time IR percutaneous drainage pending Continue zosyn per ID recs ID, IR, and surgery following, all recs appreciated Microcytic Anemia Patient is now s/p transfusion of 2 u PRBCs Iron and percent saturation low, c/w Fe-deficiency anemia May start iron on discharge FAP Patient is s/p total colectomy No active issues Colon Cancer S/p total colectomy No active issues DVT/GI PPX: SCD/pepcid 40 mg HS Full Code Regular diet Monitor on med/surg Patient seen, examined, and plan discussed with my attending Dr. Cherly Deras, D.Hien. IM Resident PGY-1 Pager: [phone] <Lee Luna - Last Filed: 10/26/18 16:48> Objective - Vital Signs/Intake and Output Vital Signs (last 24 hours): Temp Pulse Resp BP Pulse Ox 98.6 F 90 20 93/53 L 94 L 10/26/18 06:00 10/26/18 06:00 10/26/18 06:00 10/26/18 06:00 10/26/18 06:00 Intake and Output: 10/26/18 10/26/18 06:59 18:59 Intake Total 650 Balance 650 - Medications Medications: Current Medications Famotidine (Pepcid) 40 mg PO HS EKTA Hydromorphone HCl (Dilaudid) 0.5 mg IVP Q4H PRN PRN Reason: Pain, severe (8-10) Last Admin: 10/26/18 16:10 Dose: 0.5 mg Piperacillin Sod/Tazobactam Sod (Zosyn 3.375 In Ns 100ml) 100 mls @ 25 mls/hr IVPB Q8 EKTA; Protocol Stop: 11/01/18 15:46 Last Admin: 10/26/18 15:26 Dose: 25 mls/hr - Labs Labs: 10/26/18 10:10 10/26/18 10:10 PT 15.3 SECONDS (9.4-12.5) H 10/25/18 10:15 INR 1.35 10/25/18 10:15 APTT 34.8 Seconds (26.9-38.3) 10/25/18 10:15 Attending/Attestation - Attestation I have personally seen and examined this patient.: Yes I have fully participated in the care of the patient.: Yes I have reviewed all pertinent clinical information, including history, physical exam and plan: Yes Notes (Text): 10/26/18 16:46 Attending note; Patient seen and examined with resident. Patient is alert and awake. Complaining of left lower quadrant and groin pain. Not in any acute distress. Denies any nausea, vomiting. Denies any urinary symptoms denies any fevers, chills. Denies any vaginal discharge. Currently n.p.o. Patient is a 27 year old female with a past medical history of FAP, colectomy, colon cancer, and anemia who presents to the emergency department for evaluation and treatment of gluteal pain which began approximately 3 days ago with no specific provoking event. 1. Abdominal pain; CT pelvis showed new pelvic abscess and increased presacral edema, bilateral fluid collections, mural thickening of the sigmoid colon. Surgery evaluation appreciated. No surgical intervention plan. case discussed with surgery in detail. IR evaluation requested. 2. Questionable hydropyosalpinx; transvaginal ultrasound did not show any significant pyosalpinx. 3. Iron deficiency anemia; 2 unit PRBC transfusion given yesterday. hemoglobin is 8.3. Started on IV iron. Patient needs close follow-up with PMD, GI and surgery. Complaints insisted in detail. Monitor closely. upon Discharge the patient will follow up with PMD Dr. Strauss.
[2018-10-26 10:39] LABS: BASO # 0.02 K/mm3 (0.0-2.0); BASO % 0.4 % (0.0-3.0); EOS # 0.1 (0.0-0.7); EOS % 1.1 % (1.5-5.0); HEMOGLOBIN 8.3 g/dL (12.0-16.0); LYMPH # 1.1 (1.2-3.4); LYMPH % 21.6 % (22.0-35.0); MEAN CORPUSCULAR HEMOGLOBIN 20.9 pg (25.0-35.0); MEAN CORPUSCULAR HGB CONC 30.9 g/dl (31.0-37.0); MEAN PLATELET VOLUME 9.5 fl (7.0-11.0); MONO # 0.5 (0.1-0.6); MONO % 10.3 % (1.0-6.0); RBC 3.97 10^6/uL (3.5-6.1); RED CELL DISTRIBUTION WIDTH 21.6 % (11.5-14.5); WHITE BLOOD COUNT 5.2 10^3/uL (4.5-11.0)
[2018-10-26 10:41] LABS: MEAN CELL VOLUME 67.8 fl (80.0-105.0)
[2018-10-26 10:42] LABS: ALBUMIN 3.5 g/dL (3.0-4.8); ALT/SGPT 7 U/L (7-56); AST/SGOT 22 U/L (14-36); BLOOD UREA NITROGEN 14 mg/dL (7-21); CALCIUM 8.8 mg/dL (8.4-10.5); GFR NON-AFRICAN AMERICAN > 60
[2018-10-26 15:06] LABS: HEMOGLOBIN 6.6 g/dL (12.0-16.0)
--- NOTE | 2018-10-26 16:13 | CP.PCM.CON ---
History of Present Illness - History of Present Illness History of Present Illness: 27 year old female with PMH of familial adenomatous polyposis, colon cancer S/P colectomy, history of intra-abdominal abscess came in to [facility] because of gluteal pain and vague abdominal pain for about 3 days which happened spontaneously. She denies trauma to her abdomen, denies eating anything out of the ordinary, no fever or chills, no diarrhea, no dysuria, no headache or dizziness, no chest pain, no SOB, no cough or rhinorrhea, no sore throat. CT scan of the abdomen and pelvis showed pelvic abscess. Infectious Diseases consult is requested to further evaluate and manage. 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 - PULMONARY Hx Respiratory Disorders: Yes Hx Bronchitis: Yes Hx Pneumonia: Yes (aspiration pna) - NEUROLOGICAL Hx Neurological Disorder: No - HEENT Hx HEENT Problems: No (WEARS RX GLASSES) - RENAL Hx Chronic Kidney Disease: No - ENDOCRINE/METABOLIC Hx Endocrine Disorders: No - HEMATOLOGICAL/ONCOLOGICAL Hx Blood Disorders: Yes Hx Anemia: Yes Hx Cancer: Yes (Colon Cancer) Hx Chemotherapy: Yes (PO) - INTEGUMENTARY Hx Dermatological Problems: Yes (SCAR MID ABDOMEN SX) - MUSCULOSKELETAL/RHEUMATOLOGICAL Hx Musculoskeletal Disorders: No Hx Falls: No - GASTROINTESTINAL Hx Gastrointestinal Disorders: Yes (colon ca) Hx Colostomy: Yes (reversed) Other/Comment: Gastritis - GENITOURINARY/GYNECOLOGICAL Hx Genitourinary Disorders: No - PSYCHIATRIC Hx Psychophysiologic Disorder: No Hx Emotional Abuse: No Hx Physical Abuse: No Hx Substance Use: No - SURGICAL HISTORY Hx Surgeries: Yes Hx Appendectomy: Yes Other/Comment: Colostomy, total colectomy - ANESTHESIA Hx Anesthesia: Yes Hx Anesthesia Reactions: No Hx Malignant Hyperthermia: No Meds Allergies/Adverse Reactions: Allergies Allergy/AdvReac Type Severity Reaction Status Date / Time iohexol Allergy URTICARIA Verified 10/25/18 13:14 - Medications Medications: Current Medications Famotidine (Pepcid) 20 mg IVP DAILY [facility] Last Admin: 10/25/18 14:53 Dose: 20 mg Piperacillin Sod/Tazobactam Sod (Zosyn 3.375 In Ns 100ml) 100 mls @ 25 mls/hr IVPB Q8 EKTA; Protocol Stop: 11/01/18 15:46 Last Admin: 10/25/18 22:11 Dose: 25 mls/hr Morphine Sulfate (Morphine) 2 mg IVP Q4H PRN PRN Reason: Pain, severe (8-10) Last Admin: 10/25/18 19:49 Dose: 2 mg Morphine Sulfate (Morphine) 1 mg IVP Q4H PRN PRN Reason: Pain, moderate (4-7) Last Admin: 10/25/18 22:09 Dose: 1 mg Physical Exam - Constitutional Appears: No Acute Distress, Chronically Ill - Head Exam Head Exam: NORMAL INSPECTION - ENT Exam ENT Exam: Mucous Membranes Moist - Neck Exam Neck exam: Negative for: Lymphadenopathy, Meningismus - Respiratory Exam Respiratory Exam: Decreased Breath Sounds - Cardiovascular Exam Cardiovascular Exam: +S1, +S2 - GI/Abdominal Exam GI & Abdominal Exam: Soft. absent: Tenderness Results - Vital Signs Recent Vital Signs: Last Vital Signs Temp 97.9 F 10/25/18 18:14 Pulse 99 H 10/25/18 18:14 Resp 19 10/25/18 22:05 BP 105/62 10/25/18 18:14 Pulse Ox 100 10/25/18 18:14 - Labs Result Diagrams: 10/26/18 10:10 10/26/18 10:10 Labs: Laboratory Results - last 24 hr 10/25/18 10/25/18 10/25/18 10:15 10:15 10:15 WBC RBC Hgb Hct MCV MCH MCHC RDW Plt Count MPV Neut % (Auto) Lymph % (Auto) Mcdowell % (Auto) Eos % (Auto) Baso % (Auto) Lymph # (Auto) Mcdowell # (Auto) Eos # (Auto) Baso # (Auto) Absolute Neuts (auto) PT 15.3 H INR 1.35 APTT 34.8 Sodium 137 Potassium 4.0 Chloride 101 Carbon Dioxide 28 Anion Gap 11 BUN 15 Creatinine 0.7 Est GFR ( Amer) > 60 Est GFR (Non-Af Amer) > 60 Random Glucose 96 Calcium 9.3 Iron TIBC % Saturation Transferrin Ferritin Total Bilirubin 0.3 AST 17 ALT < 6 L Alkaline Phosphatase 65 Total Protein 7.8 Albumin 3.9 Globulin 3.8 Albumin/Globulin Ratio 1.0 L Beta HCG, Quant < 2.39 Blood Type Antibody Screen Antibody Identification Crossmatch BBK History Checked 10/25/18 10/25/18 10/25/18 10:15 12:00 14:00 WBC 4.0 L RBC 3.68 Hgb 6.6 L* D Hct 23.4 L MCV 63.6 L D MCH 17.9 L MCHC 28.2 L RDW 15.5 H Plt Count 234 MPV 9.2 Neut % (Auto) 49.9 L Lymph % (Auto) 38.2 H Mcdowell % (Auto) 10.1 H Eos % (Auto) 1.5 Baso % (Auto) 0.3 Lymph # (Auto) 1.5 Mcdowell # (Auto) 0.4 Eos # (Auto) 0.1 Baso # (Auto) 0.01 Absolute Neuts (auto) 1.99 PT INR APTT Sodium Potassium Chloride Carbon Dioxide Anion Gap BUN Creatinine Est GFR ( Amer) Est GFR (Non-Af Amer) Random Glucose Calcium Iron 10 L TIBC 352 % Saturation 3 L Transferrin Ferritin Total Bilirubin AST ALT Alkaline Phosphatase Total Protein Albumin Globulin Albumin/Globulin Ratio Beta HCG, Quant Blood Type A POSITIVE Antibody Screen Positive Antibody Identification Non Specific Antibody Crossmatch See Detail BBK History Checked Patient has bt 10/25/18 10/25/18 14:00 14:00 WBC RBC Hgb Hct MCV MCH MCHC RDW Plt Count MPV Neut % (Auto) Lymph % (Auto) Mcdowell % (Auto) Eos % (Auto) Baso % (Auto) Lymph # (Auto) Mcdowell # (Auto) Eos # (Auto) Baso # (Auto) Absolute Neuts (auto) PT INR APTT Sodium Potassium Chloride Carbon Dioxide Anion Gap BUN Creatinine Est GFR ( Amer) Est GFR (Non-Af Amer) Random Glucose Calcium Iron TIBC % Saturation Transferrin 252.83 Ferritin 11.3 Total Bilirubin AST ALT Alkaline Phosphatase Total Protein Albumin Globulin Albumin/Globulin Ratio Beta HCG, Quant Blood Type Antibody Screen Antibody Identification Crossmatch BBK History Checked Assessment & Plan - Assessment and Plan (Free Text) Plan: Assessment pelvic abscess history of sepsis due to right sided hospital-acquired pneumonia history of intra-abdominal fluid collections (near rectal pouch) in a patient S/P colectomy due to colon cancer familial adenomatous polyposis history of intra-abdominal abscess Plan started Zosyn pending blood cx; reviewed CT A/P follow up GI and Surgery evaluation and recommendations
[2018-10-27] MEDS: HYDROmorphone 0.5 mg/0.5 ml ISec IVP PRN ×6 (00:14→21:08)
[2018-10-27] MEDS: Piperacillin/Tazobact 3.375 gm 100 ML IVPB SCH ×3 (05:39→21:08)
--- NOTE | 2018-10-27 09:50 | CP.PCM.PN ---
Subjective - Date & Time of Evaluation Date of Evaluation: 10/27/18 Time of Evaluation: 09:30 - Subjective Subjective: General Surgery Pt seen and examined. No acute events overnight. Afebrile. Pain controlled with meds but no improvement. Hgb improved after 2 u PRBCs. Pt aware IR will evaluate Monday for possible drainage. Objective - Vital Signs/Intake and Output Vital Signs (last 24 hours): Temp Pulse Resp BP Pulse Ox 98.7 F 78 18 86/48 L 97 10/27/18 08:04 10/27/18 08:04 10/27/18 08:04 10/27/18 08:04 10/27/18 08:04 Intake and Output: 10/27/18 10/27/18 06:59 18:59 Intake Total 1200 Balance 1200 - Medications Medications: Current Medications Famotidine (Pepcid) 40 mg PO HS [facility] Last Admin: 10/26/18 21:55 Dose: 40 mg Hydromorphone HCl (Dilaudid) 0.5 mg IVP Q4H PRN PRN Reason: Pain, severe (8-10) Last Admin: 10/27/18 08:16 Dose: 0.5 mg Piperacillin Sod/Tazobactam Sod (Zosyn 3.375 In Ns 100ml) 100 mls @ 25 mls/hr IVPB Q8 [facility]; Protocol Stop: 11/01/18 15:46 Last Admin: 10/27/18 05:39 Dose: 25 mls/hr Iron Sucrose 100 mg/ Sodium (Chloride) 105 mls @ 210 mls/hr IVPB DAILY [facility] Stop: 10/30/18 10:01 - Labs Labs: 10/26/18 10:10 10/26/18 10:10 PT 15.3 SECONDS (9.4-12.5) H 10/25/18 10:15 INR 1.35 10/25/18 10:15 APTT 34.8 Seconds (26.9-38.3) 10/25/18 10:15 - Constitutional Appears: Non-toxic, No Acute Distress - Head Exam Head Exam: ATRAUMATIC, NORMOCEPHALIC - Eye Exam Eye Exam: EOMI. absent: Scleral icterus - Respiratory Exam Respiratory Exam: NORMAL BREATHING PATTERN. absent: Respiratory Distress - Cardiovascular Exam Cardiovascular Exam: RRR, +S1, +S2 - GI/Abdominal Exam GI & Abdominal Exam: Soft. absent: Distended, Firm, Guarding, Rigid, Tenderness, Rebound - Neurological Exam Neurological Exam: Alert, Awake, Oriented x3 - Skin Skin Exam: Dry, Warm Assessment and Plan - Assessment and Plan (Free Text) Assessment: 27F with hx of total proctocolectomy and J-pouch reconstruction now presenting with presacral fluid collection. Plan: - Pain control - ABx - F/U IR recs for possible drainage Monday D/W Dr Sagar Williamson PGY4
[2018-10-27] MEDS ORDERED: Iron Sucrose 100 mg/5 ml Inj IVP SCH (10:00)
--- NOTE | 2018-10-27 11:47 | CP.PCM.PCO ---
Physician Communication Note - Physician Communication Note Physician Communication Note: ?IR Drainage in am/Labs then
--- NOTE | 2018-10-27 14:08 | CP.PCM.PN ---
<Lukas Deras - Last Filed: 10/27/18 14:03> Subjective - Date & Time of Evaluation Date of Evaluation: 10/27/18 Time of Evaluation: 10:00 - Subjective Subjective: Lukas Deras DO, PGY-1 Hospitalist Progress Note for Dr. Luna Patient was seen and examined at bedside this AM. She offers no new complaints t his AM and states her pain is under control. She reports she tolerated transfusion of 2 units of PRBCs without difficulty yesterday. She denies fever/chills, CP, SOB, cough, abdominal pain/nausea/vomiting, or urinary complaints. Objective - Vital Signs/Intake and Output Vital Signs (last 24 hours): Temp Pulse Resp BP Pulse Ox 98.7 F 78 18 86/48 L 97 10/27/18 08:04 10/27/18 08:04 10/27/18 08:04 10/27/18 08:04 10/27/18 08:04 Intake and Output: 10/27/18 10/27/18 06:59 18:59 Intake Total 1200 Balance 1200 - Medications Medications: Current Medications Famotidine (Pepcid) 40 mg PO HS [facility] Last Admin: 10/26/18 21:55 Dose: 40 mg Hydromorphone HCl (Dilaudid) 0.5 mg IVP Q4H PRN PRN Reason: Pain, severe (8-10) Last Admin: 10/27/18 12:46 Dose: 0.5 mg Piperacillin Sod/Tazobactam Sod (Zosyn 3.375 In Ns 100ml) 100 mls @ 25 mls/hr IVPB Q8 EKTA; Protocol Stop: 11/01/18 15:46 Last Admin: 10/27/18 05:39 Dose: 25 mls/hr Iron Sucrose 100 mg/ Sodium (Chloride) 105 mls @ 210 mls/hr IVPB DAILY [facility] Stop: 10/30/18 10:01 Last Admin: 10/27/18 10:22 Dose: Not Given Dextrose/Sodium Chloride (Dextrose 5%/0.45% Ns 1000 Ml) 1,000 mls @ 83 mls/hr IV .Q12H3M EKTA - Labs Labs: 10/26/18 10:10 10/26/18 10:10 PT 15.3 SECONDS (9.4-12.5) H 10/25/18 10:15 INR 1.35 10/25/18 10:15 APTT 34.8 Seconds (26.9-38.3) 10/25/18 10:15 - Constitutional Appears: Non-toxic, No Acute Distress - Head Exam Head Exam: ATRAUMATIC, NORMOCEPHALIC - Eye Exam Eye Exam: EOMI, PERRL - ENT Exam ENT Exam: Mucous Membranes Moist - Neck Exam Neck Exam: Full ROM, Normal Inspection - Respiratory Exam Respiratory Exam: Clear to Ausculation Bilateral, NORMAL BREATHING PATTERN. absent: Rales, Rhonchi, Wheezes - Cardiovascular Exam Cardiovascular Exam: REGULAR RHYTHM, RRR, +S1, +S2. absent: Gallop, Rubs, Murmur - GI/Abdominal Exam GI & Abdominal Exam: Soft, Normal Bowel Sounds. absent: Guarding, Tenderness - Extremities Exam Extremities Exam: Full ROM, Normal Inspection. absent: Pedal Edema - Back Exam Back Exam: NORMAL INSPECTION - Neurological Exam Neurological Exam: Alert, Awake, Oriented x3 - Psychiatric Exam Psychiatric exam: Normal Affect, Normal Mood - Skin Skin Exam: Dry, Intact, Warm Assessment and Plan - Assessment and Plan (Free Text) Assessment: 27 yo F with PMH of FAP, colon cancer, and anemia is admitted for evaluation and treatment of R-sided gluteal pain. She was found to have pelvic abscess on imaging and to be anemic with a Hgb of 6.6. She is now s/p transfusion of 2 u PRBCs. Plan: Gluteal Abscess Identified on CTAP on admission Transvaginal US showed L hydrosalpinx with inadequate evaluation of right adnexa Continue dilaudid and zofran PRN Per surgery recs, will require IR drainage and no role for surgical intervention at this time IR percutaneous drainage planned for Monday Continue zosyn per ID recs ID, IR, and surgery following, all recs appreciated Microcytic Anemia Patient is now s/p transfusion of 2 u PRBCs Likely 2/2 iron deficiency anemia IV Iron started but patient is refusing FAP Patient is s/p total colectomy Patient states her surgery was at [facility] and she had a colonoscopy there in July 2018 Recommend continued follow up after discharge No active issues Colon Cancer S/p total colectomy No active issues DVT/GI PPX: SCD/pepcid 40 mg HS Full Code Regular diet Monitor on med/surg Patient seen, examined, and plan discussed with my attending Dr. Cheryl Deras, AlO. IM Resident PGY-1 Pager: [phone] <Lee Luna - Last Filed: 10/27/18 17:10> Objective - Vital Signs/Intake and Output Vital Signs (last 24 hours): Temp Pulse Resp BP Pulse Ox 98.7 F 78 18 86/48 L 97 10/27/18 08:04 10/27/18 08:04 10/27/18 08:04 10/27/18 08:04 10/27/18 08:04 Intake and Output: 10/27/18 10/27/18 06:59 18:59 Intake Total 1200 Balance 1200 - Medications Medications: Current Medications Famotidine (Pepcid) 40 mg PO HS EKTA Last Admin: 10/26/18 21:55 Dose: 40 mg Hydromorphone HCl (Dilaudid) 0.5 mg IVP Q4H PRN PRN Reason: Pain, severe (8-10) Last Admin: 10/27/18 12:46 Dose: 0.5 mg Piperacillin Sod/Tazobactam Sod (Zosyn 3.375 In Ns 100ml) 100 mls @ 25 mls/hr IVPB Q8 EKTA; Protocol Stop: 11/01/18 15:46 Last Admin: 10/27/18 15:00 Dose: 25 mls/hr Iron Sucrose 100 mg/ Sodium (Chloride) 105 mls @ 210 mls/hr IVPB DAILY EKTA Stop: 10/30/18 10:01 Last Admin: 10/27/18 10:22 Dose: Not Given Dextrose/Sodium Chloride (Dextrose 5%/0.45% Ns 1000 Ml) 1,000 mls @ 83 mls/hr IV .Q12H3M EKTA - Labs Labs: 10/26/18 10:10 10/26/18 10:10 PT 15.3 SECONDS (9.4-12.5) H 10/25/18 10:15 INR 1.35 10/25/18 10:15 APTT 34.8 Seconds (26.9-38.3) 10/25/18 10:15 Attending/Attestation - Attestation I have personally seen and examined this patient.: Yes I have fully participated in the care of the patient.: Yes I have reviewed all pertinent clinical information, including history, physical exam and plan: Yes Notes (Text): 10/27/18 17:06 Attending note; Patient seen and examined with resident. Patient is alert and awake. Complaining of left lower quadrant and groin pain. Improved with IV dilaudid. Not in any acute distress. Denies any nausea, vomiting. Denies any urinary symptoms denies any fevers, chills. Denies any vaginal discharge. Patient is a 27 year old female with a past medical history of FAP, colectomy, colon cancer, and anemia who presents to the emergency department for evaluation and treatment of gluteal pain which began approximately 3 days ago with no specific provoking event. 1. Abdominal pain; CT pelvis showed new pelvic abscess and increased presacral edema, bilateral fluid collections, mural thickening of the sigmoid colon. Surgery evaluation appreciated. No surgical intervention plan. case discussed with surgery in detail. IR evaluation requested. Possible IR drainage on monday. 2. Questionable hydropyosalpinx; transvaginal ultrasound did not show any significant pyosalpinx. ID evaluation appreciated. On IV zosyn. 3. Iron deficiency anemia; 2 unit PRBC transfusion given yesterday. hemoglobin is 8.3. Started on IV iron. patient followed up with [facility] last July. needs close follow up with colorectal surgery as outpatient. upon Discharge the patient will follow up with PMD Dr. Strauss.
--- NOTE | 2018-10-27 19:03 | PN ---
DATE: 10/27/2018 SUBJECTIVE: The patient is in bed, in no acute distress. PHYSICAL EXAMINATION: VITAL SIGNS: Temperature is 98, blood pressure is 93/53, respiratory rate of 20. HEENT: Unremarkable. NECK: Supple. LUNGS: Have decreased breath sounds. HEART: Normal S1 and S2. ABDOMEN: Soft. LABORATORY EXAMINATION: Reveals a white count of 5.2, hemoglobin of 8, platelets of 232. Chemistries reveal a BUN of 14, creatinine of 0.8. ASSESSMENT AND PLAN: A 27-year-old female who was seen earlier this morning with familial adenomatous polyposis, colon cancer, status post colectomy, history of intra-abdominal abscess. Admitted with gluteal pain and vague abdominal pain for three days with a pelvic abscess. On Zosyn. Dr. Keith' report is reviewed. Communication report from today has ? interventional radiology drainage and labs in the morning. We will follow with you. Review of orders confirms the patient's Zosyn to be active. Lucho Henderson MD
[2018-10-28] MEDS: HYDROmorphone 1 mg/ml ISec IVP PRN ×3 (01:03→09:06)
[2018-10-28] MEDS: Piperacillin/Tazobact 3.375 gm 100 ML IVPB SCH ×3 (05:04→21:54)
[2018-10-28 07:53] LABS: BASO # 0.01 K/mm3 (0.0-2.0); BASO % 0.2 % (0.0-3.0); EOS # 0.1 (0.0-0.7); EOS % 1.5 % (1.5-5.0); HEMOGLOBIN 8.2 g/dL (12.0-16.0); LYMPH # 1.5 (1.2-3.4); LYMPH % 27.6 % (22.0-35.0); MEAN CELL VOLUME 69.9 fl (80.0-105.0); MEAN CORPUSCULAR HGB CONC 28.7 g/dl (31.0-37.0); MEAN PLATELET VOLUME 9.2 fl (7.0-11.0); MONO # 0.6 (0.1-0.6); MONO % 10.2 % (1.0-6.0); RBC 4.09 10^6/uL (3.5-6.1); RED CELL DISTRIBUTION WIDTH 21.6 % (11.5-14.5); WHITE BLOOD COUNT 5.5 10^3/uL (4.5-11.0)
[2018-10-28 07:55] LABS: ALBUMIN 3.3 g/dL (3.0-4.8); ALT/SGPT < 6 U/L (7-56); AST/SGOT 15 U/L (14-36); BLOOD UREA NITROGEN 10 mg/dL (7-21); GFR NON-AFRICAN AMERICAN > 60
--- NOTE | 2018-10-28 09:04 | CP.PCM.PN ---
Subjective - Date & Time of Evaluation Date of Evaluation: 10/28/18 Time of Evaluation: 06:40 - Subjective Subjective: General Surgery Pt seen and examined. No acute events overnight. Afebrile. Reports pain slightly worse and dilaudid not covering it the last hour before next dose. Otherwise, pain controlled with meds. Pt aware IR will evaluate Monday for possible drainage. Objective - Vital Signs/Intake and Output Vital Signs (last 24 hours): Temp Pulse Resp BP Pulse Ox 98.5 F 88 20 102/53 L 97 10/28/18 07:49 10/28/18 07:49 10/28/18 07:49 10/28/18 07:49 10/28/18 07:49 - Medications Medications: Current Medications Famotidine (Pepcid) 40 mg PO HS [facility] Last Admin: 10/27/18 21:08 Dose: 40 mg Piperacillin Sod/Tazobactam Sod (Zosyn 3.375 In Ns 100ml) 100 mls @ 25 mls/hr IVPB Q8 [facility]; Protocol Stop: 11/01/18 15:46 Last Admin: 10/28/18 05:04 Dose: 25 mls/hr Iron Sucrose 100 mg/ Sodium (Chloride) 105 mls @ 210 mls/hr IVPB DAILY [facility] Stop: 10/30/18 10:01 Last Admin: 10/27/18 10:22 Dose: Not Given Dextrose/Sodium Chloride (Dextrose 5%/0.45% Ns 1000 Ml) 1,000 mls @ 83 mls/hr IV .Q12H3M [facility] - Labs Labs: 10/28/18 07:00 10/28/18 07:00 PT 15.3 SECONDS (9.4-12.5) H 10/25/18 10:15 INR 1.35 10/25/18 10:15 APTT 34.8 Seconds (26.9-38.3) 10/25/18 10:15 - Constitutional Appears: Non-toxic, In Acute Distress - Head Exam Head Exam: ATRAUMATIC, NORMOCEPHALIC - Eye Exam Eye Exam: EOMI. absent: Scleral icterus - Respiratory Exam Respiratory Exam: NORMAL BREATHING PATTERN. absent: Respiratory Distress - GI/Abdominal Exam GI & Abdominal Exam: Soft. absent: Distended, Tenderness - Extremities Exam Extremities Exam: absent: Calf Tenderness, Pedal Edema - Back Exam Back Exam: absent: CVA tenderness (L), CVA tenderness (R) - Neurological Exam Neurological Exam: Alert, Awake, Oriented x3 - Skin Skin Exam: Dry, Warm Assessment and Plan - Assessment and Plan (Free Text) Assessment: 27F with hx of total proctocolectomy and J-pouch reconstruction now presenting with presacral fluid collection. Plan: - Pain control, increased frequency of dilaudid. - Continue ABx - F/U IR recs for possible drainage Monday Will D/W Dr Sagar Williamson PGY4
--- NOTE | 2018-10-28 12:26 | CP.PCM.PN ---
<Lukas Deras - Last Filed: 10/28/18 12:38> Subjective - Date & Time of Evaluation Date of Evaluation: 10/28/18 Time of Evaluation: 09:00 - Subjective Subjective: Lukas Deras DO, PGY-1 Hospitalist Progress Note for Dr. Luna Patient was seen and examined at bedside this AM. She states she is still having some pain but the dilaudid helps with the pain. Most of her pain is in the R gluteal region. She otherwise has no new complaints and denies fever/chills, CP, SOB, abdominal pain/nausea/vomiting, or urinary complaints. Objective - Vital Signs/Intake and Output Vital Signs (last 24 hours): Temp Pulse Resp BP Pulse Ox 98.5 F 88 20 102/53 L 97 10/28/18 07:49 10/28/18 07:49 10/28/18 07:49 10/28/18 07:49 10/28/18 07:49 - Medications Medications: Current Medications Famotidine (Pepcid) 40 mg PO HS [facility] Last Admin: 10/27/18 21:08 Dose: 40 mg Hydromorphone HCl (Dilaudid) 0.5 mg IVP Q3H PRN PRN Reason: Pain, severe (8-10) Piperacillin Sod/Tazobactam Sod (Zosyn 3.375 In Ns 100ml) 100 mls @ 25 mls/hr IVPB Q8 [facility]; Protocol Stop: 11/01/18 15:46 Last Admin: 10/28/18 05:04 Dose: 25 mls/hr Iron Sucrose 100 mg/ Sodium (Chloride) 105 mls @ 210 mls/hr IVPB DAILY [facility] Stop: 10/30/18 10:01 Last Admin: 10/28/18 10:18 Dose: Not Given Dextrose/Sodium Chloride (Dextrose 5%/0.45% Ns 1000 Ml) 1,000 mls @ 83 mls/hr IV .Q12H3M [facility] - Labs Labs: 10/28/18 07:00 10/28/18 07:00 PT 15.3 SECONDS (9.4-12.5) H 10/25/18 10:15 INR 1.35 10/25/18 10:15 APTT 34.8 Seconds (26.9-38.3) 10/25/18 10:15 - Constitutional Appears: Non-toxic, No Acute Distress - Head Exam Head Exam: ATRAUMATIC, NORMOCEPHALIC - Eye Exam Eye Exam: EOMI, PERRL - ENT Exam ENT Exam: Mucous Membranes Moist - Neck Exam Neck Exam: Full ROM, Normal Inspection - Respiratory Exam Respiratory Exam: Clear to Ausculation Bilateral, NORMAL BREATHING PATTERN. absent: Rales, Rhonchi, Wheezes - Cardiovascular Exam Cardiovascular Exam: REGULAR RHYTHM, RRR, +S1, +S2. absent: Gallop, Rubs, Murmur - GI/Abdominal Exam GI & Abdominal Exam: Soft, Normal Bowel Sounds. absent: Guarding, Tenderness - Extremities Exam Extremities Exam: Full ROM, Normal Inspection. absent: Pedal Edema - Back Exam Back Exam: NORMAL INSPECTION - Neurological Exam Neurological Exam: Alert, Awake, Oriented x3 - Psychiatric Exam Psychiatric exam: Normal Affect, Normal Mood - Skin Skin Exam: Dry, Intact, Warm Assessment and Plan - Assessment and Plan (Free Text) Assessment: 27 yo F with PMH of FAP, colon cancer, and anemia is admitted for evaluation and treatment of R-sided gluteal pain. She was found to have pelvic abscess on imaging and to be anemic with a Hgb of 6.6. She is now s/p transfusion of 2 u PRBCs. Plan: Gluteal Abscess Identified on CTAP on admission Transvaginal US showed L hydrosalpinx with inadequate evaluation of right adnexa Continue dilaudid and zofran PRN IR percutaneous drainage planned for Monday No other surgical intervention needed per surgery Continue zosyn per ID recs ID, IR, and surgery following, all recs appreciated Microcytic Anemia Patient is now s/p transfusion of 2 u PRBCs Likely 2/2 iron deficiency anemia Patient continues to refuse IV iron, states it zhou Will continue to monitor H/H FAP Patient is s/p total colectomy Patient states her surgery was at [facility] and she had a colonoscopy there in July 2018 Recommend continued follow up after discharge No active issues Colon Cancer S/p total colectomy No active issues DVT/GI PPX: SCD/pepcid Full Code Regular diet Monitor on med/surg Patient seen, examined, and plan discussed with my attending Dr. Cheryl Deras, D.Hien. IM Resident PGY-1 Pager: [phone] <Lee Luna - Last Filed: 10/28/18 13:22> Objective - Vital Signs/Intake and Output Vital Signs (last 24 hours): Temp Pulse Resp BP Pulse Ox 98.5 F 88 20 102/53 L 97 10/28/18 07:49 10/28/18 07:49 10/28/18 07:49 10/28/18 07:49 10/28/18 07:49 - Medications Medications: Current Medications Famotidine (Pepcid) 40 mg PO HS [facility] Last Admin: 10/27/18 21:08 Dose: 40 mg Hydromorphone HCl (Dilaudid) 0.5 mg IVP Q3H PRN PRN Reason: Pain, severe (8-10) Last Admin: 10/28/18 12:46 Dose: 0.5 mg Piperacillin Sod/Tazobactam Sod (Zosyn 3.375 In Ns 100ml) 100 mls @ 25 mls/hr IVPB Q8 [facility]; Protocol Stop: 11/01/18 15:46 Last Admin: 10/28/18 13:05 Dose: 25 mls/hr Iron Sucrose 100 mg/ Sodium (Chloride) 105 mls @ 210 mls/hr IVPB DAILY [facility] Stop: 10/30/18 10:01 Last Admin: 10/28/18 10:18 Dose: Not Given Dextrose/Sodium Chloride (Dextrose 5%/0.45% Ns 1000 Ml) 1,000 mls @ 83 mls/hr IV .Q12H3M [facility] - Labs Labs: 10/28/18 07:00 10/28/18 07:00 PT 15.3 SECONDS (9.4-12.5) H 10/25/18 10:15 INR 1.35 10/25/18 10:15 APTT 34.8 Seconds (26.9-38.3) 10/25/18 10:15 Attending/Attestation - Attestation I have personally seen and examined this patient.: Yes I have fully participated in the care of the patient.: Yes I have reviewed all pertinent clinical information, including history, physical exam and plan: Yes Notes (Text): 10/28/18 13:21 Attending note; Patient seen and examined with resident. Patient is alert and awake. Complaining of left lower quadrant and groin pain. Requesting IV dilaudid. Not in any acute distress. Denies any nausea, vomiting. Denies any urinary symptoms denies any fevers, chills. Denies any vaginal discharge. Patient is a 27 year old female with a past medical history of FAP, colectomy, colon cancer, and anemia who presents to the emergency department for evaluation and treatment of gluteal pain which began approximately 3 days ago with no specific provoking event. 1. Abdominal pain; CT pelvis showed new pelvic abscess and increased presacral edema, bilateral fluid collections, mural thickening of the sigmoid colon. Surgery evaluation appreciated. No surgical intervention plan. case discussed with surgery in detail. IR evaluation requested. Possible IR drainage on monday. 2. Questionable hydropyosalpinx; transvaginal ultrasound did not show any significant pyosalpinx. ID evaluation appreciated. On IV zosyn. 3. Iron deficiency anemia; 2 unit PRBC transfusion given yesterday. hemoglobin is 8.3. Started on IV iron. patient followed up with [facility] last July. needs close follow up with colorectal surgery as outpatient. upon Discharge the patient will follow up with PMD Dr. Strauss.
[2018-10-28] MEDS: HYDROmorphone 0.5 mg/0.5 ml ISec IVP PRN ×4 (12:46→21:54)
--- NOTE | 2018-10-28 15:21 | PN ---
DATE: 10/28/2018 SUBJECTIVE: The patient is in bed in no acute distress, nontoxic. PHYSICAL EXAMINATION VITAL SIGNS: On exam, temperature is 98, blood pressure is 102/50 and respiratory rate of 20. HEENT: Unremarkable. NECK: Supple. LUNGS: Have decreased breath sounds. HEART: Normal S1 and S2. ABDOMEN: Soft. LABORATORY DATA: Laboratory examination reveals a white count of 5.5, hemoglobin of 8 and platelets of 234. Chemistries are noted. Serology is reviewed. Microbiology is reviewed. ASSESSMENT AND PLAN: This is a 27-year-old female with familial adenomatous polyposis colon cancer status post colectomy, history of intra-abdominal abscess admitted with gluteal pain and vague abdominal pain and found to have pelvic abscess. Currently on Zosyn, for possible Interventional Radiology guided drainage. We will continue Zosyn for now. Awaiting an invasive Radiology input. Lucho Henderson MD
[2018-10-29] MEDS: HYDROmorphone 0.5 mg/0.5 ml ISec IVP PRN ×7 (00:50→22:01)
[2018-10-29] MEDS: Piperacillin/Tazobact 3.375 gm 100 ML IVPB SCH ×3 (05:43→21:38)
[2018-10-29 06:54] LABS: BASO # 0.01 K/mm3 (0.0-2.0); BASO % 0.2 % (0.0-3.0); EOS # 0.1 (0.0-0.7); EOS % 1.2 % (1.5-5.0); HEMOGLOBIN 8.1 g/dL (12.0-16.0); LYMPH # 1.7 (1.2-3.4); MEAN CORPUSCULAR HEMOGLOBIN 20.6 pg (25.0-35.0); MEAN CORPUSCULAR HGB CONC 29.5 g/dl (31.0-37.0); MEAN PLATELET VOLUME 9.3 fl (7.0-11.0); MONO # 0.5 (0.1-0.6); RBC 3.93 10^6/uL (3.5-6.1); RED CELL DISTRIBUTION WIDTH 22.3 % (11.5-14.5)
[2018-10-29 07:55] LABS: ALB/GLOB RATIO 0.9 (1.1-1.8); ALBUMIN 3.3 g/dL (3.0-4.8); ALT/SGPT 9 U/L (7-56); AST/SGOT 22 U/L (14-36); BLOOD UREA NITROGEN 12 mg/dL (7-21); GFR NON-AFRICAN AMERICAN > 60
[2018-10-29] MEDS ORDERED: Dextrose 5%/0.45% NS 1,000 ML IV SCH (08:00)
--- NOTE | 2018-10-29 08:03 | CP.PCM.PN ---
Subjective - Date & Time of Evaluation Date of Evaluation: 10/29/18 Time of Evaluation: 08:01 - Subjective Subjective: Surgery Progress Note for Dr. Keith S/E at bedside. Comfortably asleep prior to interview. Reports pain is well controlled with pain meds. No fevers, chills, chest pain, sob, n/v, constipation, back or abdominal pain reported. Objective - Vital Signs/Intake and Output Vital Signs (last 24 hours): Temp Pulse Resp BP Pulse Ox 98.6 F 93 H 20 103/64 95 10/28/18 19:53 10/28/18 19:53 10/28/18 19:53 10/28/18 19:53 10/28/18 19:53 - Medications Medications: Current Medications Famotidine (Pepcid) 40 mg PO HS [facility] Last Admin: 10/28/18 21:53 Dose: 40 mg Hydromorphone HCl (Dilaudid) 0.5 mg IVP Q3H PRN PRN Reason: Pain, severe (8-10) Last Admin: 10/29/18 05:24 Dose: 0.5 mg Piperacillin Sod/Tazobactam Sod (Zosyn 3.375 In Ns 100ml) 100 mls @ 25 mls/hr IVPB Q8 [facility]; Protocol Stop: 11/01/18 15:46 Last Admin: 10/29/18 05:43 Dose: 25 mls/hr Iron Sucrose 100 mg/ Sodium (Chloride) 105 mls @ 210 mls/hr IVPB DAILY [facility] Stop: 10/30/18 10:01 Last Admin: 10/28/18 10:18 Dose: Not Given Dextrose/Sodium Chloride (Dextrose 5%/0.45% Ns 1000 Ml) 1,000 mls @ 83 mls/hr IV .Q12H3M [facility] - Labs Labs: 10/29/18 06:00 10/29/18 06:00 PT 15.3 SECONDS (9.4-12.5) H 10/25/18 10:15 INR 1.35 10/25/18 10:15 APTT 34.8 Seconds (26.9-38.3) 10/25/18 10:15 - Additional Findings Additional findings: - Constitutional Appears: Non-toxic, No Acute Distress - Head Exam Head Exam: ATRAUMATIC, NORMOCEPHALIC - Eye Exam Eye Exam: EOMI. absent: Scleral icterus - Respiratory Exam Respiratory Exam: NORMAL BREATHING PATTERN. absent: Respiratory Distress - GI/Abdominal Exam GI & Abdominal Exam: Soft. absent: Distended, Tenderness - Extremities Exam Extremities Exam: absent: Calf Tenderness, Pedal Edema - Back Exam Back Exam: absent: CVA tenderness (L), CVA tenderness (R) - Neurological Exam Neurological Exam: Alert, Awake, Oriented x3 - Skin Skin Exam: Dry, Warm Assessment and Plan - Assessment and Plan (Free Text) Assessment: 27 yo fmemale w/ PMH of FAP, colon cancer, and anemia admitted to hospital for pain. Surgery consulted for presacral abscess PLAN: F/U IR recs for possible drainage Continue pain meds Continue IV abx Continue iron supplements Further recs as per Dr. Kieth PGY-1 Clem Ortega
--- NOTE | 2018-10-29 16:18 | CP.PCM.PN ---
Subjective - Date & Time of Evaluation Date of Evaluation: 10/29/18 Time of Evaluation: 11:10 - Subjective Subjective: No fevers, still with abdominal discomfort. Objective - Vital Signs/Intake and Output Vital Signs (last 24 hours): Temp Pulse Resp BP Pulse Ox 98.6 F 93 H 20 103/64 95 10/28/18 19:53 10/28/18 19:53 10/28/18 19:53 10/28/18 19:53 10/28/18 19:53 - Medications Medications: Current Medications Famotidine (Pepcid) 40 mg PO HS [facility] Last Admin: 10/28/18 21:53 Dose: 40 mg Hydromorphone HCl (Dilaudid) 0.5 mg IVP Q3H PRN PRN Reason: Pain, severe (8-10) Last Admin: 10/28/18 21:54 Dose: 0.5 mg Piperacillin Sod/Tazobactam Sod (Zosyn 3.375 In Ns 100ml) 100 mls @ 25 mls/hr IVPB Q8 [facility]; Protocol Stop: 11/01/18 15:46 Last Admin: 10/28/18 21:54 Dose: 25 mls/hr Iron Sucrose 100 mg/ Sodium (Chloride) 105 mls @ 210 mls/hr IVPB DAILY [facility] Stop: 10/30/18 10:01 Last Admin: 10/28/18 10:18 Dose: Not Given Dextrose/Sodium Chloride (Dextrose 5%/0.45% Ns 1000 Ml) 1,000 mls @ 83 mls/hr IV .Q12H3M [facility] - Labs Labs: 10/28/18 07:00 10/28/18 07:00 PT 15.3 SECONDS (9.4-12.5) H 10/25/18 10:15 INR 1.35 10/25/18 10:15 APTT 34.8 Seconds (26.9-38.3) 10/25/18 10:15 - Constitutional Appears: Chronically Ill - Head Exam Head Exam: NORMAL INSPECTION - Respiratory Exam Respiratory Exam: Decreased Breath Sounds - Cardiovascular Exam Cardiovascular Exam: +S1, +S2 - GI/Abdominal Exam GI & Abdominal Exam: Soft. absent: Tenderness Assessment and Plan - Assessment and Plan (Free Text) Plan: Assessment pelvic abscess history of sepsis due to right sided hospital-acquired pneumonia history of intra-abdominal fluid collections (near rectal pouch) in a patient S/P colectomy due to colon cancer familial adenomatous polyposis history of intra-abdominal abscess Plan continue Zosyn day 4; reviewed CT A/P follow up GI and Surgery evaluation and recommendations - may undergo IR-guided drainage
--- NOTE | 2018-10-29 17:43 | CP.PCM.PN ---
<Lukas Deras - Last Filed: 10/29/18 17:44> Subjective - Date & Time of Evaluation Date of Evaluation: 10/29/18 Time of Evaluation: 07:00 - Subjective Subjective: Lukas Deras DO, PGY-1 Hospitalist Progress Note for Dr. Martir Tavarez Patient was seen and examined at bedside this AM. She states she is still having pain but is tolerating regular diet well without nausea/vomiting. She is scheduled for IR drainage of abscess today. Objective - Vital Signs/Intake and Output Vital Signs (last 24 hours): Temp Pulse Resp BP Pulse Ox 98.8 F 99 H 20 98/62 L 98 10/29/18 17:18 10/29/18 17:18 10/29/18 17:18 10/29/18 17:18 10/29/18 17:18 - Medications Medications: Current Medications Docusate Sodium (Colace) 100 mg PO BID [facility] Famotidine (Pepcid) 40 mg PO HS [facility] Last Admin: 10/28/18 21:53 Dose: 40 mg Hydromorphone HCl (Dilaudid) 0.5 mg IVP Q3H PRN PRN Reason: Pain, severe (8-10) Last Admin: 10/29/18 15:30 Dose: 0.5 mg Piperacillin Sod/Tazobactam Sod (Zosyn 3.375 In Ns 100ml) 100 mls @ 25 mls/hr IVPB Q8 [facility]; Protocol Stop: 11/01/18 15:46 Last Admin: 10/29/18 14:53 Dose: 25 mls/hr Iron Sucrose 100 mg/ Sodium (Chloride) 105 mls @ 210 mls/hr IVPB DAILY [facility] Stop: 10/30/18 10:01 Last Admin: 10/29/18 09:46 Dose: Not Given Dextrose/Sodium Chloride (Dextrose 5%/0.45% Ns 1000 Ml) 1,000 mls @ 83 mls/hr IV .Q12H3M [facility] Last Admin: 10/29/18 08:35 Dose: 83 mls/hr - Labs Labs: 10/29/18 06:00 10/29/18 06:00 PT 15.3 SECONDS (9.4-12.5) H 10/25/18 10:15 INR 1.35 10/25/18 10:15 APTT 34.8 Seconds (26.9-38.3) 10/25/18 10:15 - Constitutional Appears: Non-toxic, No Acute Distress - Head Exam Head Exam: ATRAUMATIC, NORMOCEPHALIC - Eye Exam Eye Exam: EOMI, PERRL - ENT Exam ENT Exam: Mucous Membranes Moist - Neck Exam Neck Exam: Full ROM, Normal Inspection - Respiratory Exam Respiratory Exam: Clear to Ausculation Bilateral, NORMAL BREATHING PATTERN. absent: Accessory Muscle Use, Rales, Rhonchi, Wheezes, Respiratory Distress - Cardiovascular Exam Cardiovascular Exam: REGULAR RHYTHM, RRR, +S1, +S2. absent: Gallop, Rubs, Murmur - GI/Abdominal Exam GI & Abdominal Exam: Soft, Normal Bowel Sounds. absent: Guarding, Tenderness - Rectal Exam Additional comments: R-sided area of erythema visualized, abscess appears to be subcutaneous, painful to palpation - Extremities Exam Extremities Exam: Normal Inspection. absent: Pedal Edema - Back Exam Back Exam: Full ROM, NORMAL INSPECTION - Neurological Exam Neurological Exam: Alert, Awake, Oriented x3 - Psychiatric Exam Psychiatric exam: Normal Affect, Normal Mood - Skin Skin Exam: Dry, Intact, Warm Assessment and Plan - Assessment and Plan (Free Text) Assessment: 27 yo F with PMH of FAP, colon cancer, and anemia is admitted for evaluation and treatment of R-sided gluteal pain. She was found to have pelvic abscess on imaging and to be anemic with a Hgb of 6.6. She is now s/p transfusion of 2 u PRBCs. She is scheduled for IR drainage of abscess today. Plan: Gluteal Abscess R-sided abscess identified on CTAP on admission Transvaginal US also showed L hydrosalpinx with inadequate evaluation of right adnexa Patient still requiring dilaudid regularly for pain control Most of the pain is in her R buttock region IR percutaneous drainage planned for today No other surgical intervention needed per surgery Continue zosyn per ID recs ID, IR, and surgery following, all recs appreciated Microcytic Anemia Likely 2/2 iron deficiency anemia Patient continues to refuse IV iron, states it zhou H/H stable, continue to monitor FAP Patient is s/p total colectomy at [facility] and she had a colonoscopy there in July 2018 She states she continues to follow there regularly for management of FAP No active issues Colon Cancer S/p total colectomy No active issues DVT/GI PPX: SCD/pepcid Full Code Regular diet Monitor on med/surg Patient seen, examined, and plan discussed with my attending Dr. Martir Deras D.O. IM Resident PGY-1 Pager: [phone] <CorbyDona R - Last Filed: 10/31/18 19:59> Objective - Vital Signs/Intake and Output Vital Signs (last 24 hours): Temp Pulse Resp BP Pulse Ox 98.7 F 85 18 94/57 L 96 10/31/18 06:00 10/31/18 06:00 10/31/18 06:00 10/31/18 06:00 10/31/18 06:00 - Labs Labs: 10/30/18 06:00 10/30/18 06:00 PT 15.3 SECONDS (9.4-12.5) H 10/25/18 10:15 INR 1.35 10/25/18 10:15 APTT 34.8 Seconds (26.9-38.3) 10/25/18 10:15 Attending/Attestation - Attestation I have personally seen and examined this patient.: Yes I have fully participated in the care of the patient.: Yes I have reviewed all pertinent clinical information, including history, physical exam and plan: Yes Notes (Text): Patient seen and examined by me with resident at approximately 12PM on 10/29/18. Case including HPI, physical exam, and assessment and plan discussed with resident. Agree with above with following additions/corrections. Patient is a 27 year old female with past medical history significant for FAP, colon cancer, and anemia that presented to the emergency room for gluteal pain. Patient sleeping at time of arrival. Patient states she is feeling ok. Complains of constant pelvic and gluteal pain. Patient asking for pain medications every 3 hours. She denies nausea or vomiting. Patient is tolerating diet. She denies chest pain or palpitations. No shortness of breath. No fevers or chills. No headaches or dizziness. No dysuria. Patient is having bowel movements. Physical exam: General: Awake and alert sitting up in bed in no acute distress HEENT: Normocephalic, atraumatic. Extraocular muscles intact, pupils equal and reactive, no scleral icterus. Oropharynx is pink and moist. No pharyngeal erythema or exudate appreciated. Neck is supple. Cardiovascular: Regular rhythm. Normal S1 and S2. No murmurs, rubs, or gallops appreciated Pulmonary: Normal respiratory effort. No rhonchi, rales, or wheezing appr eciated. Gastrointestinal: Soft, nondistended. Nontender. Positive bowel sounds all 4 quadrants. No guarding. Musculoskeletal: Moves all extremities. No calf tenderness. No edema. Central nervous system: AAOx3. Dermatologic: Skin warm and dry. Assessment and plan: Patient is a 27 year old female with past medical history significant for FAP, colon cancer, and anemia that presented to the emergency room for gluteal pain. 1. Gluteal pain. Pelvic abscess. ID following, recommendations appreciated, continue Zosyn. Patient for IR drainage. Continue with pain management. Pending evaluation by IR for drainage. Pelvic CT per radiologist showed new pelvic abscess, 3.5cm in greatest dimension, in the presacral space; increased presacral edema/inflammatory change compared to prior exam; multiple bilateral fluid collections possible abscesses or possibly representing bilateral hydrosalpinx/pyosalpinx postoperative changes, mural thickening of the rectosigmoid colon may reflect inflammation secondary to adjacent infection/inflammation. Surgical team following, recommendations appreciated. 2. Anemia. S/P 2 units PRBCs. Secondary to iron deficiency. Patient refusing IV iron H&H stable. Continue to monitor. 3. Left hydrosalpinx. Transvaginal ultrasound per radiologist showed limited exam, left hydrosalpinx, right adnexa inadequately evaluated. No pyosalpinx noted. Patient advised at she will need outpatient follow up with gynecology. 4. FAP. History of Colon Cancer. No acute issues. S/P total colectomy. Patient to continue outpatient follow-up. 5. GI/DVT prophylaxis. Pepcid/SCDs and ambulation 6. Patient is full code. Case was discussed in detail with the patient regarding current diagnosis and treatment plan. All questions answered.
--- NOTE | 2018-10-29 18:13 | CP.PCM.PCO ---
Physician Communication Note - Physician Communication Note Physician Communication Note: Coco wants rectal contrast Image before draining abscess
--- NOTE | 2018-10-29 21:42 | PN ---
DATE: 10/29/2018 TIME: 5.15 p.m. I reviewed the patient's pelvic CT scan and compared to the prior scan in 02/2018. The patient has a complex history related to polyposis syndrome and previous colon surgeries. Her current CT scan is inadequate. It will need to be repeated with rectal and oral contrast. There are lucencies in the adnexa which could represent hydrosalpinx. The left hydrosalpinx was confirmed on transvaginal ultrasound. At the current time, there are no plans for a CT pelvic drainage. Please obtain adequate imaging of the pelvis with oral and rectal contrast. Kosta Prince MD MTDD
[2018-10-30] MEDS: HYDROmorphone 0.5 mg/0.5 ml ISec IVP PRN ×8 (01:07→22:56)
[2018-10-30] MEDS: Piperacillin/Tazobact 3.375 gm 100 ML IVPB SCH ×3 (06:18→21:26)
[2018-10-30 06:44] LABS: BASO # 0.01 K/mm3 (0.0-2.0); BASO % 0.2 % (0.0-3.0); EOS # 0.1 (0.0-0.7); EOS % 1.3 % (1.5-5.0); HEMOGLOBIN 8.3 g/dL (12.0-16.0); LYMPH # 1.6 (1.2-3.4); MEAN CELL VOLUME 70.4 fl (80.0-105.0); MEAN CORPUSCULAR HEMOGLOBIN 20.3 pg (25.0-35.0); MEAN CORPUSCULAR HGB CONC 28.8 g/dl (31.0-37.0); MONO # 0.5 (0.1-0.6); MONO % 9.5 % (1.0-6.0); RBC 4.09 10^6/uL (3.5-6.1); RED CELL DISTRIBUTION WIDTH 23.1 % (11.5-14.5); WHITE BLOOD COUNT 5.4 10^3/uL (4.5-11.0)
[2018-10-30 07:16] LABS: ALBUMIN 3.5 g/dL (3.0-4.8); ALT/SGPT 7 U/L (7-56); AST/SGOT 24 U/L (14-36); BLOOD UREA NITROGEN 12 mg/dL (7-21); CALCIUM 9.3 mg/dL (8.4-10.5); GFR NON-AFRICAN AMERICAN > 60
--- NOTE | 2018-10-30 07:47 | CP.PCM.PN ---
Subjective - Date & Time of Evaluation Date of Evaluation: 10/30/18 Time of Evaluation: 07:43 - Subjective Subjective: Surgery Progress Note for Dr. Keith S/E at bedside. Visibly upset because door to her room had to remain open and patient was not able to sleep comfortable. Pain is still present in buttock region but controlled with medication. Denies fevers, chills, chest pain, sob, n/v, constipation or diarrhea, and dysuria. Objective - Vital Signs/Intake and Output Vital Signs (last 24 hours): Temp Pulse Resp BP Pulse Ox 98.1 F 111 H 20 112/70 95 10/29/18 19:56 10/29/18 19:56 10/29/18 19:56 10/29/18 19:56 10/29/18 19:56 Intake and Output: 10/30/18 10/30/18 06:59 18:59 Intake Total 1085 Balance 1085 - Medications Medications: Current Medications Docusate Sodium (Colace) 100 mg PO BID [facility] Last Admin: 10/29/18 18:35 Dose: 100 mg Famotidine (Pepcid) 40 mg PO HS [facility] Last Admin: 10/29/18 21:40 Dose: Not Given Hydromorphone HCl (Dilaudid) 0.5 mg IVP Q3H PRN PRN Reason: Pain, severe (8-10) Last Admin: 10/30/18 06:54 Dose: 0.5 mg Piperacillin Sod/Tazobactam Sod (Zosyn 3.375 In Ns 100ml) 100 mls @ 25 mls/hr IVPB Q8 [facility]; Protocol Stop: 11/01/18 15:46 Last Admin: 10/30/18 06:18 Dose: 25 mls/hr Iron Sucrose 100 mg/ Sodium (Chloride) 105 mls @ 210 mls/hr IVPB DAILY [facility] Stop: 10/30/18 10:01 Last Admin: 10/29/18 09:46 Dose: Not Given Dextrose/Sodium Chloride (Dextrose 5%/0.45% Ns 1000 Ml) 1,000 mls @ 83 mls/hr IV .Q12H3M [facility] Last Admin: 10/29/18 08:35 Dose: 83 mls/hr - Labs Labs: 10/30/18 06:00 10/30/18 06:00 PT 15.3 SECONDS (9.4-12.5) H 10/25/18 10:15 INR 1.35 10/25/18 10:15 APTT 34.8 Seconds (26.9-38.3) 10/25/18 10:15 - Additional Findings Additional findings: - Constitutional Appears: Non-toxic, No Acute Distress - Head Exam Head Exam: ATRAUMATIC, NORMOCEPHALIC - Eye Exam Eye Exam: EOMI. absent: Scleral icterus - Respiratory Exam Respiratory Exam: NORMAL BREATHING PATTERN. absent: Respiratory Distress - GI/Abdominal Exam GI & Abdominal Exam: Soft. absent: Distended, Tenderness - Extremities Exam Extremities Exam: absent: Calf Tenderness, Pedal Edema - Back Exam Back Exam: absent: CVA tenderness (L), CVA tenderness (R) - Neurological Exam Neurological Exam: Alert, Awake, Oriented x3 - Skin Skin Exam: Dry, Warm Assessment and Plan - Assessment and Plan (Free Text) Assessment: 27 yo fmemale w/ PMH of FAP, colon cancer, and anemia admitted to hospital for pain. Surgery consulted for presacral abscess PLAN: F/U IR recs; pending CT w/ rectal contrast; IR will put in order as per admin team Continue pain meds Continue IV abx Continue iron supplements Further recs as per Dr. Keith PGY-1 Clem Ortega
[2018-10-30] MEDS ORDERED: Barium Sulfate Susp 2.1% w/v, 2.0% w/w 450 mL Bottle PO ONE (14:04)
[2018-10-30] MEDS ORDERED: Iohexol 240 (50 ml) ONE (14:47)
--- NOTE | 2018-10-30 15:04 | CP.PCM.PN ---
Subjective - Date & Time of Evaluation Date of Evaluation: 10/30/18 Time of Evaluation: 11:20 - Subjective Subjective: Still with rectal pain, no fevers, no nausea. Objective - Vital Signs/Intake and Output Vital Signs (last 24 hours): Temp Pulse Resp BP Pulse Ox 97.9 F 80 20 96/49 L 98 10/29/18 08:02 10/29/18 08:02 10/29/18 08:02 10/29/18 08:02 10/29/18 08:02 - Medications Medications: Current Medications Docusate Sodium (Colace) 100 mg PO BID [facility] Famotidine (Pepcid) 40 mg PO HS [facility] Last Admin: 10/28/18 21:53 Dose: 40 mg Hydromorphone HCl (Dilaudid) 0.5 mg IVP Q3H PRN PRN Reason: Pain, severe (8-10) Last Admin: 10/29/18 15:30 Dose: 0.5 mg Piperacillin Sod/Tazobactam Sod (Zosyn 3.375 In Ns 100ml) 100 mls @ 25 mls/hr IVPB Q8 [facility]; Protocol Stop: 11/01/18 15:46 Last Admin: 10/29/18 14:53 Dose: 25 mls/hr Iron Sucrose 100 mg/ Sodium (Chloride) 105 mls @ 210 mls/hr IVPB DAILY [facility] Stop: 10/30/18 10:01 Last Admin: 10/29/18 09:46 Dose: Not Given Dextrose/Sodium Chloride (Dextrose 5%/0.45% Ns 1000 Ml) 1,000 mls @ 83 mls/hr IV .Q12H3M [facility] Last Admin: 10/29/18 08:35 Dose: 83 mls/hr - Labs Labs: 10/29/18 06:00 10/29/18 06:00 PT 15.3 SECONDS (9.4-12.5) H 10/25/18 10:15 INR 1.35 10/25/18 10:15 APTT 34.8 Seconds (26.9-38.3) 10/25/18 10:15 - Constitutional Appears: Chronically Ill - Head Exam Head Exam: NORMAL INSPECTION - Respiratory Exam Respiratory Exam: Decreased Breath Sounds - Cardiovascular Exam Cardiovascular Exam: +S1, +S2 - GI/Abdominal Exam GI & Abdominal Exam: Soft. absent: Tenderness Assessment and Plan - Assessment and Plan (Free Text) Plan: Assessment pelvic abscess history of sepsis due to right sided hospital-acquired pneumonia history of intra-abdominal fluid collections (near rectal pouch) in a patient S/P colectomy due to colon cancer familial adenomatous polyposis history of intra-abdominal abscess Plan continue Zosyn day 5; reviewed CT A/P as per GI and Surgery, may undergo IR-guided drainage with Dr. Kosta Prince
--- NOTE | 2018-10-30 15:11 | CP.PCM.PN ---
<Lukas Deras - Last Filed: 10/30/18 15:08> Subjective - Date & Time of Evaluation Date of Evaluation: 10/30/18 Time of Evaluation: 07:00 - Subjective Subjective: Lukas Deras DO, PGY-1 Hospitalist Progress Note for Dr. Martir Tavarez Patient was seen and examined at bedside this AM. She reports continued pain but it is overall improved from dilaudid. She states the pain has made it difficult to use the restroom. She is scheduled for IR drainage of R gluteal abscess today. She has no other complaints this AM and denies fever/chills, CP, SOB, cough, abd pain/nausea/vomiting, or new urinary complaints. Objective - Vital Signs/Intake and Output Vital Signs (last 24 hours): Temp Pulse Resp BP Pulse Ox 97.8 F 86 20 100/59 L 98 10/30/18 08:34 10/30/18 08:34 10/30/18 08:34 10/30/18 08:34 10/30/18 08:34 Intake and Output: 10/30/18 10/30/18 06:59 18:59 Intake Total 1085 Balance 1085 - Medications Medications: Current Medications Docusate Sodium (Colace) 100 mg PO BID [facility] Last Admin: 10/30/18 13:13 Dose: 100 mg Famotidine (Pepcid) 40 mg PO HS [facility] Last Admin: 10/29/18 21:40 Dose: Not Given Hydromorphone HCl (Dilaudid) 0.5 mg IVP Q3H PRN PRN Reason: Pain, severe (8-10) Last Admin: 10/30/18 14:08 Dose: 0.5 mg Piperacillin Sod/Tazobactam Sod (Zosyn 3.375 In Ns 100ml) 100 mls @ 25 mls/hr IVPB Q8 [facility]; Protocol Stop: 11/01/18 15:46 Last Admin: 10/30/18 13:19 Dose: 25 mls/hr Dextrose/Sodium Chloride (Dextrose 5%/0.45% Ns 1000 Ml) 1,000 mls @ 83 mls/hr IV .Q12H3M [facility] Last Admin: 10/29/18 08:35 Dose: 83 mls/hr - Labs Labs: 10/30/18 06:00 10/30/18 06:00 PT 15.3 SECONDS (9.4-12.5) H 10/25/18 10:15 INR 1.35 10/25/18 10:15 APTT 34.8 Seconds (26.9-38.3) 10/25/18 10:15 - Constitutional Appears: Non-toxic, No Acute Distress - Head Exam Head Exam: ATRAUMATIC, NORMOCEPHALIC - Eye Exam Eye Exam: EOMI, PERRL - ENT Exam ENT Exam: Mucous Membranes Moist - Neck Exam Neck Exam: Full ROM, Normal Inspection - Respiratory Exam Respiratory Exam: Clear to Ausculation Bilateral, NORMAL BREATHING PATTERN. absent: Rales, Rhonchi, Wheezes - Cardiovascular Exam Cardiovascular Exam: REGULAR RHYTHM, RRR, +S1, +S2. absent: Gallop, Rubs, Murmur - GI/Abdominal Exam GI & Abdominal Exam: Soft, Normal Bowel Sounds. absent: Guarding, Tenderness - Rectal Exam Additional comments: R-sided area of erythema visualized, abscess appears to be subcutaneous, painful to palpation - Extremities Exam Extremities Exam: Full ROM, Normal Inspection. absent: Pedal Edema - Back Exam Back Exam: NORMAL INSPECTION - Neurological Exam Neurological Exam: Alert, Awake, Oriented x3 - Psychiatric Exam Psychiatric exam: Anxious - Skin Skin Exam: Dry, Intact, Warm Assessment and Plan - Assessment and Plan (Free Text) Assessment: 27 yo F with PMH of FAP, colon cancer, and anemia is admitted for evaluation and treatment of R-sided gluteal pain. She was found to have pelvic abscess on imagi ng and to be anemic with a Hgb of 6.6. She is now s/p transfusion of 2 u PRBCs. She is scheduled for IR drainage of abscess today. Plan: Gluteal Abscess R-sided abscess identified on CTAP on admission Transvaginal US also showed L hydrosalpinx with inadequate evaluation of right adnexa Patient still requiring dilaudid regularly for pain control No additional surgical interventions Still pending IR drainage of R-sided abscess After percutaneous drainage, need to wean off dilaudid Continue zosyn monotherapy per ID recs ID, IR, and surgery following, all recs appreciated Microcytic Anemia Likely 2/2 iron deficiency anemia Received 2 units PRBCs since admission Patient continues to refuse IV iron H/H stable FAP Patient is s/p total colectomy at [facility] and she had a colonoscopy there in July 2018 She states she continues to follow there regularly for management of FAP No active issues Colon Cancer S/p total colectomy No active issues DVT/GI PPX: SCD/pepcid Full Code Regular diet Monitor on med/surg Patient seen, examined, and plan discussed with my attending Dr. Martir Deras D.O. IM Resident PGY-1 Pager: [phone] <Dona Tavarez R - Last Filed: 10/31/18 20:05> Objective - Vital Signs/Intake and Output Vital Signs (last 24 hours): Temp Pulse Resp BP Pulse Ox 98.7 F 85 18 94/57 L 96 10/31/18 06:00 10/31/18 06:00 10/31/18 06:00 10/31/18 06:00 10/31/18 06:00 - Labs Labs: 10/30/18 06:00 10/30/18 06:00 PT 15.3 SECONDS (9.4-12.5) H 10/25/18 10:15 INR 1.35 10/25/18 10:15 APTT 34.8 Seconds (26.9-38.3) 10/25/18 10:15 Attending/Attestation - Attestation I have personally seen and examined this patient.: Yes I have fully participated in the care of the patient.: Yes I have reviewed all pertinent clinical information, including history, physical exam and plan: Yes Notes (Text): Patient seen and examined by me with resident at approximately 11:30AM on 10/30/18. Case including HPI, physical exam, and assessment and plan discussed with resident. Agree with above with following additions/corrections. Patient is a 27 year old female with past medical history significant for FAP, colon cancer, and anemia that presented to the emergency room for gluteal pain. Patient again sleeping at time of arrival. Patient states she is still having constant pelvic and gluteal pain. Pain is worse with bowel movements. She denies nausea or vomiting. Patient is tolerating diet. She denies chest pain or palpitations. No shortness of breath. No fevers or chills. No headaches or dizziness. No dysuria. Patient is having regular bowel movements. Physical exam: General: Awake and alert sitting up in bed in no acute distress HEENT: Normocephalic, atraumatic. Extraocular muscles intact, pupils equal and reactive, no scleral icterus. Oropharynx is pink and moist. No pharyngeal erythema or exudate appreciated. Neck is supple. Cardiovascular: Regular rhythm. Normal S1 and S2. No murmurs, rubs, or gallops appreciated Pulmonary: Normal respiratory effort. No rhonchi, rales, or wheezing appreciated. Gastrointestinal: Soft, nondistended. Nontender. Positive bowel sounds all 4 quadrants. No guarding. Musculoskeletal: Moves all extremities. No calf tenderness. No edema. Central nervous system: AAOx3. Dermatologic: Skin warm and dry. Assessment and plan: Patient is a 27 year old female with past medical history significant for FAP, colon cancer, and anemia that presented to the emergency room for gluteal pain. 1. Gluteal pain. Pelvic abscess. ID following, recommendations appreciated, continue Zosyn. Evaluated by IR, pelvic scan with PO and rectal contrast needed per IR. Order was placed. Pending scan. Continue with pain management. Pelvic CT per radiologist showed new pelvic abscess, 3.5cm in greatest dimension, in the presacral space; increased presacral edema/inflammatory change compared to prior exam; multiple bilateral fluid collections possible abscesses or possibly representing bilateral hydrosalpinx/pyosalpinx postoperative changes, mural thickening of the rectosigmoid colon may reflect inflammation secondary to adjacent infection/inflammation. Surgical team following, recommendations appreciated. 2. Anemia. S/P 2 units PRBCs. Secondary to iron deficiency. Patient refusing IV iron H&H stable. Continue to monitor. 3. Left hydrosalpinx. Transvaginal ultrasound per radiologist showed limited exam, left hydrosalpinx, right adnexa inadequately evaluated. No pyosalpinx noted. Patient advised at she will need outpatient follow up with gynecology. 4. FAP. History of Colon Cancer. No acute issues. S/P total colectomy. Patient to continue outpatient follow-up. 5. GI/DVT prophylaxis. Pepcid/SCDs and ambulation 6. Patient is full code. Case was discussed in detail with the patient regarding current diagnosis and treatment plan. All questions answered. Addendum. Patient re-evaluated at 6PM. Patient is refusing PO contrast and is refusing further evaluation by IR. Patient also states she has not been sleeping. Patient is asking to be discharged home. Discussed with patient that she will need clearance from Dr. Keith and ID doctor. Patient agrees to stay until tomorrow morning.
[2018-10-31] MEDS: HYDROmorphone 0.5 mg/0.5 ml ISec IVP PRN ×3 (02:05→08:05)
[2018-10-31] MEDS: Piperacillin/Tazobact 3.375 gm 100 ML IVPB SCH (04:59)
--- NOTE | 2018-10-31 07:27 | CP.PCM.PCO ---
Physician Communication Note - Physician Communication Note Physician Communication Note: IR Sammy rectal contrast for CT/Oral refused
[2018-10-31 09:40] VITALS: BP 94/57; PULSE 85; RESP 18; TEMP 98.7; O2SAT 96
--- NOTE | 2018-10-31 17:13 | CP.PCM.DIS ---
<Lukas Deras - Last Filed: 10/31/18 17:04> Provider - Provider Date of Admission: 10/25/18 16:54 Attending physician: Dona Tavarez DO Primary care physician: Mike Strauss MD Consults: 10/25/18 13:33 General Surgery Consult Routine Comment: presacral abscess Consulting Provider: Dre Keith Consulting Physician: Dre Keith Reason for Consult: presacral abscess 10/25/18 15:31 Physician Consult Routine Comment: Consulting Provider: Lucho Henderson Consulting Physician: Lucho Henderson Reason for Consult: abx recommendations, pelvic abscess 10/25/18 15:36 Physician Consult Routine Comment: Consulting Provider: Kosta Prince Consulting Physician: Kosta Prince Reason for Consult: pelvic abscess, potential percutaneous drainage Time Spent in preparation of Discharge (in minutes): 45 Diagnosis - Discharge Diagnosis (1) Abscess, gluteal, right Status: Acute (2) Familial adenomatous polyposis Status: Chronic Priority: Medium (3) History of colon cancer Status: Chronic Priority: Medium Hospital Course - Lab Results Lab Results: Most Recent Lab Values WBC 5.4 10^3/uL (4.5-11.0) 10/30/18 06:00 RBC 4.09 10^6/uL (3.5-6.1) 10/30/18 06:00 Hgb 8.3 g/dL (12.0-16.0) L 10/30/18 06:00 Hct 28.8 % (36.0-48.0) L 10/30/18 06:00 MCV 70.4 fl (80.0-105.0) L 10/30/18 06:00 MCH 20.3 pg (25.0-35.0) L 10/30/18 06:00 MCHC 28.8 g/dl (31.0-37.0) L 10/30/18 06:00 RDW 23.1 % (11.5-14.5) H 10/30/18 06:00 Plt Count 242 10^3/uL (120.0-450.0) 10/30/18 06:00 MPV 9.0 fl (7.0-11.0) 10/30/18 06:00 Neut % (Auto) 59.0 % (50.0-68.0) 10/30/18 06:00 Lymph % (Auto) 30.0 % (22.0-35.0) 10/30/18 06:00 [place] % (Auto) 9.5 % (1.0-6.0) H 10/30/18 06:00 Eos % (Auto) 1.3 % (1.5-5.0) L 10/30/18 06:00 Baso % (Auto) 0.2 % (0.0-3.0) 10/30/18 06:00 Lymph # (Auto) 1.6 (1.2-3.4) 10/30/18 06:00 [place] # (Auto) 0.5 (0.1-0.6) 10/30/18 06:00 Eos # (Auto) 0.1 (0.0-0.7) 10/30/18 06:00 Baso # (Auto) 0.01 K/mm3 (0.0-2.0) 10/30/18 06:00 Absolute Neuts (auto) 3.16 (1.4-6.5) 10/30/18 06:00 PT 15.3 SECONDS (9.4-12.5) H 10/25/18 10:15 INR 1.35 10/25/18 10:15 APTT 34.8 Seconds (26.9-38.3) 10/25/18 10:15 Sodium 138 mmol/L (132-148) 10/30/18 06:00 Potassium 3.9 mmol/L (3.6-5.0) 10/30/18 06:00 Chloride 103 mmol/L (98-107) 10/30/18 06:00 Carbon Dioxide 28 mmol/L (21-33) 10/30/18 06:00 Anion Gap 10 (10-20) 10/30/18 06:00 BUN 12 mg/dL (7-21) 10/30/18 06:00 Creatinine 0.6 mg/dl (0.7-1.2) L 10/30/18 06:00 Est GFR ( Amer) > 60 10/30/18 06:00 Est GFR (Non-Af Amer) > 60 10/30/18 06:00 Random Glucose 113 mg/dL (70-110) H 10/30/18 06:00 Calcium 9.3 mg/dL (8.4-10.5) 10/30/18 06:00 Phosphorus 4.0 mg/dL (2.5-4.5) 10/26/18 10:10 Magnesium 1.9 mg/dL (1.7-2.2) 10/26/18 10:10 Iron 10 ug/dL (45-180) L 10/25/18 14:00 TIBC 352 ug/dL (265-497) 10/25/18 14:00 % Saturation 3 % (20-55) L 10/25/18 14:00 Transferrin 252.83 mg/dL (206-381) 10/25/18 14:00 Ferritin 11.3 ng/mL 10/25/18 14:00 Total Bilirubin 0.3 mg/dL (0.2-1.3) 10/30/18 06:00 AST 24 U/L (14-36) 10/30/18 06:00 ALT 7 U/L (7-56) 10/30/18 06:00 Alkaline Phosphatase 64 U/L (38-126) 10/30/18 06:00 Total Protein 7.1 g/dL (5.8-8.3) 10/30/18 06:00 Albumin 3.5 g/dL (3.0-4.8) 10/30/18 06:00 Globulin 3.6 gm/dL 10/30/18 06:00 Albumin/Globulin Ratio 1.0 (1.1-1.8) L 10/30/18 06:00 Carcinoembryonic Ag < 0.3 ng/mL (0.0-3.0) 10/26/18 10:10 Beta HCG, Quant < 2.39 mIU/mL (0-6.15) 10/25/18 10:15 HIV 1&2 Antibody Screen Negative (NEGATIVE) 10/26/18 10:10 Blood Type A POSITIVE 10/25/18 12:00 Antibody Screen Positive 10/25/18 12:00 Antibody Identification Non Specific Antibody 10/25/18 12:00 Crossmatch See Detail 10/25/18 12:00 BBK History Checked Patient has bt 10/25/18 12:00 - Hospital Course Hospital Course: Lukas Deras DO, PGY-1 Hospitalist Discharge Summary for Dr. Luna Prior to admission: Patient is a 27 year old female with PMH of FAP, colon cancer, and anemia is admitted for evaluation and treatment of R-sided gluteal pain. She was found to have R-sided gluteal abscess on imaging and to be anemic with a Hgb of 6.6. She was subsequently admitted for management of symptomatic anemia and treatment of R-sided gluteal abscess. Hospitalization course: R-sided abscess was again demonstrated on CTAP with transvaginal US showed L hydrosalpinx. She received regular dilaudid for pain control. She was treated for symptomatic microcytic anemia with 2 units of PRBCs. However she refused IV iron. She was evaluated by IR who recommended CTAP with PO and rectal contrast. However, patient stated she would not be able to tolerate PO contrast because of banana flavoring which makes her nauseated. Patient requested to be discharged so she could complete the study at another facility. Patient was sent home on Augmentin BID for 7 days. Medications were delivered at bedside prior to discharge. Discharge plan was discussed with patient in detail. All questions were answered. Patient seen, examined, and discharge plan discussed with my attending Dr. Cheryl Deras, [place].O. IM Resident PGY-1 Discharge Exam - Head Exam Head Exam: ATRAUMATIC, NORMOCEPHALIC - Eye Exam Eye Exam: EOMI, PERRL - ENT Exam ENT Exam: Mucous Membranes Moist - Neck Exam Neck exam: Full Rom, Normal Inspection - Respiratory Exam Respiratory Exam: Clear to PA & Lateral, NORMAL BREATHING PATTERN, UNREMARKABLE. absent: Rales, Rhonchi, Wheezes - Cardiovascular Exam Cardiovascular Exam: REGULAR RHYTHM, RRR, +S1, +S2. absent: Diastolic murmur, Gallop, Rubs, Systolic Murmur - GI/Abdominal Exam GI & Abdominal Exam: Normal Bowel Sounds, Soft, Unremarkable. absent: Tenderness - Rectal Exam Additional comments: R-sided area of erythema visualized, abscess appears to be subcutaneous, painful to palpation - Extremities Exam Extremities exam: full ROM, normal inspection - Back Exam Back exam: NORMAL INSPECTION - Neurological Exam Neurological exam: Alert, Oriented x3 - Psychiatric Exam Psychiatric exam: Normal Affect, Normal Mood - Skin Skin Exam: Dry, Intact, Warm Discharge Plan - Discharge Medications Prescriptions: Amoxicillin/Clavulanate [Augmentin 875 MG-125 MG Tab] 1 tab PO Q12 7 Days #14 tab - Follow Up Plan Condition: GUARDED Disposition: HOME/ ROUTINE Instructions: Anemia Caused by Low Iron, Adult (DC), Acute Abdominal Pain (DC), Acute Abdominal Pain (GEN), Abscess (GEN) Additional Instructions: Please understand we have not addressed your problem, which is pre-sacral abscess, Please follow up with you primary care physician in 2-3 days Please follow up with your surgeon in 2-3 days Take the antibiotic twice a day for 7 days, but please understand the antibiotics is not going to take care of the abscess. Please go to the nearest emergency room if the problem persists or getting worst. Referrals: Mike Strauss MD [Primary Care Provider] - <Lee Luna - Last Filed: 10/31/18 17:38> Provider - Provider Date of Admission: 10/25/18 16:54 Attending physician: Dona Tavarez DO Primary care physician: Mike Strauss MD Consults: 10/25/18 13:33 General Surgery Consult Routine Comment: presacral abscess Consulting Provider: Dre Keith Consulting Physician: Dre Keith Reason for Consult: presacral abscess 10/25/18 15:31 Physician Consult Routine Comment: Consulting Provider: Lucho Henderson Consulting Physician: Lucho Henderson Reason for Consult: abx recommendations, pelvic abscess 10/25/18 15:36 Physician Consult Routine Comment: Consulting Provider: Kosta Prince Consulting Physician: Kosta Prince Reason for Consult: pelvic abscess, potential percutaneous drainage Hospital Course - Lab Results Lab Results: Most Recent Lab Values WBC 5.4 10^3/uL (4.5-11.0) 10/30/18 06:00 RBC 4.09 10^6/uL (3.5-6.1) 10/30/18 06:00 Hgb 8.3 g/dL (12.0-16.0) L 10/30/18 06:00 Hct 28.8 % (36.0-48.0) L 10/30/18 06:00 MCV 70.4 fl (80.0-105.0) L 10/30/18 06:00 MCH 20.3 pg (25.0-35.0) L 10/30/18 06:00 MCHC 28.8 g/dl (31.0-37.0) L 10/30/18 06:00 RDW 23.1 % (11.5-14.5) H 10/30/18 06:00 Plt Count 242 10^3/uL (120.0-450.0) 10/30/18 06:00 MPV 9.0 fl (7.0-11.0) 10/30/18 06:00 Neut % (Auto) 59.0 % (50.0-68.0) 10/30/18 06:00 Lymph % (Auto) 30.0 % (22.0-35.0) 10/30/18 06:00 [place] % (Auto) 9.5 % (1.0-6.0) H 10/30/18 06:00 Eos % (Auto) 1.3 % (1.5-5.0) L 10/30/18 06:00 Baso % (Auto) 0.2 % (0.0-3.0) 10/30/18 06:00 Lymph # (Auto) 1.6 (1.2-3.4) 10/30/18 06:00 [place] # (Auto) 0.5 (0.1-0.6) 10/30/18 06:00 Eos # (Auto) 0.1 (0.0-0.7) 10/30/18 06:00 Baso # (Auto) 0.01 K/mm3 (0.0-2.0) 10/30/18 06:00 Absolute Neuts (auto) 3.16 (1.4-6.5) 10/30/18 06:00 PT 15.3 SECONDS (9.4-12.5) H 10/25/18 10:15 INR 1.35 10/25/18 10:15 APTT 34.8 Seconds (26.9-38.3) 10/25/18 10:15 Sodium 138 mmol/L (132-148) 10/30/18 06:00 Potassium 3.9 mmol/L (3.6-5.0) 10/30/18 06:00 Chloride 103 mmol/L (98-107) 10/30/18 06:00 Carbon Dioxide 28 mmol/L (21-33) 10/30/18 06:00 Anion Gap 10 (10-20) 10/30/18 06:00 BUN 12 mg/dL (7-21) 10/30/18 06:00 Creatinine 0.6 mg/dl (0.7-1.2) L 10/30/18 06:00 Est GFR ( Amer) > 60 10/30/18 06:00 Est GFR (Non-Af Amer) > 60 10/30/18 06:00 Random Glucose 113 mg/dL (70-110) H 10/30/18 06:00 Calcium 9.3 mg/dL (8.4-10.5) 10/30/18 06:00 Phosphorus 4.0 mg/dL (2.5-4.5) 10/26/18 10:10 Magnesium 1.9 mg/dL (1.7-2.2) 10/26/18 10:10 Iron 10 ug/dL (45-180) L 10/25/18 14:00 TIBC 352 ug/dL (265-497) 10/25/18 14:00 % Saturation 3 % (20-55) L 10/25/18 14:00 Transferrin 252.83 mg/dL (206-381) 10/25/18 14:00 Ferritin 11.3 ng/mL 10/25/18 14:00 Total Bilirubin 0.3 mg/dL (0.2-1.3) 10/30/18 06:00 AST 24 U/L (14-36) 10/30/18 06:00 ALT 7 U/L (7-56) 10/30/18 06:00 Alkaline Phosphatase 64 U/L (38-126) 10/30/18 06:00 Total Protein 7.1 g/dL (5.8-8.3) 10/30/18 06:00 Albumin 3.5 g/dL (3.0-4.8) 10/30/18 06:00 Globulin 3.6 gm/dL 10/30/18 06:00 Albumin/Globulin Ratio 1.0 (1.1-1.8) L 10/30/18 06:00 Carcinoembryonic Ag < 0.3 ng/mL (0.0-3.0) 10/26/18 10:10 Beta HCG, Quant < 2.39 mIU/mL (0-6.15) 10/25/18 10:15 HIV 1&2 Antibody Screen Negative (NEGATIVE) 10/26/18 10:10 Blood Type A POSITIVE 10/25/18 12:00 Antibody Screen Positive 10/25/18 12:00 Antibody Identification Non Specific Antibody 10/25/18 12:00 Crossmatch See Detail 10/25/18 12:00 BBK History Checked Patient has bt 10/25/18 12:00 Attending/Attestation - Attestation I have personally seen and examined this patient.: Yes I have fully participated in the care of the patient.: Yes I have reviewed all pertinent clinical information, including history, physical exam and plan: Yes Notes (Text): 10/31/18 17:33 Attending note; Patient seen and examined with resident. Patient is alert and awake. Complaining of left lower quadrant and groin pain. Just got IV dilaudid. Denies any nausea, vomiting. Denies any urinary symptoms denies any fevers, chills. Refused to drink po contrast. refused rectal contrast. Currently wants to go to other hospital to get another opinion. Patient is a 27 year old female with a past medical history of FAP, colectomy, colon cancer, and anemia who presents to the emergency department for evaluation and treatment of gluteal pain which began approximately 3 days ago with no specific provoking event. 1. Abdominal pain; CT pelvis showed new pelvic abscess and increased presacral edema, bilateral fluid collections, mural thickening of the sigmoid colon. Surgery evaluation appreciated. No surgical intervention plan. case discussed with surgery in detail. IR evaluation requested. IR requested CT abdomen and pelvis with p.o. and rectal contrast. Patient refused. Case discussed with Dr. Keith in detail Patient will be discharged as per her request. Patient is planning to go to the hospital for second opinion. 2. Questionable hydropyosalpinx; transvaginal ultrasound did not show any significant pyosalpinx. ID evaluation appreciated. Treated with IV zosyn. 3. Iron deficiency anemia; 2 unit PRBC transfusion given. hemoglobin is 8.3. Started on IV iron. patient followed up with [facility] last July. needs close follow up with colorectal surgery as outpatient. upon Discharge the patient will follow up with PMD Dr. Strauss. Patient is discharged as per her request. prescription for augmentin given. 10/31/18 17:36
== END 2018-10-31 10:53 | disposition home or self-care (01) | DRG 278 ==
LOC: ED 09:29 → ERH 14:00 → OBSVTOIN 16:54 → ERH 17:54 → 3RNO 18:44
PROVIDERS: ADMIT Internal Medicine; ATTEND Hospitalist
PROC: 30233N1 Transfusion of Nonautologous Red Blood Cells into Peripheral Vein, Percutaneous Approach (ICD-10-PCS; principal; 2018-10-26)
DX: L02.31 Cutaneous abscess of buttock (principal); N70.11 Chronic salpingitis; D50.9 Iron deficiency anemia, unspecified; Z85.038 Personal history of other malignant neoplasm of large intestine; Z90.49 Acquired absence of other specified parts of digestive tract; Z87.01 Personal history of pneumonia (recurrent); Z87.891 Personal history of nicotine dependence

== ENCOUNTER 2018-12-10 20:30 | Emergency (ER) | payer MEDICAID, BC ==
[2018-12-10 20:30] VITALS: BMI 20.6
[2018-12-10 21:05] VITALS: RESP 18
[2018-12-10] MEDS ORDERED: Sodium Chloride 0.9% 1,000 ML IV STA (21:08)
--- NOTE | 2018-12-10 21:44 | ED PDOC ---
Arrival/HPI - General Chief Complaint: GI Problem Time Seen by Provider: 12/10/18 20:32 Historian: Patient - History of Present Illness Narrative History of Present Illness (Text): 12/10/18 21:44 27 year old female, whose past medical history includes colon cancer s/p colectomy (2011), intra-abdominal abscess, and anemia, presents to the emergency department with nausea and vomiting. Patient informs she had an ileostomy place d on 12/05/18 at the [facility]. Patient informs it was placed due to her abscesses, in order to divert stool and allow area to heal. Patient informs she has some post surgical pain, but she feels it is normal. Patient denies any fevers, chills, urinary symptoms, chest pain, shortness of breath, headache, dizziness, or any other complaint. 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 - Pulmonary Hx Respiratory Disorders: No - Neurological Hx Neurological Disorder: No - HEENT Hx HEENT Disorder: No (WEARS RX GLASSES) - Renal Hx Renal Disorder: No - Endocrine/Metabolic Hx Endocrine Disorders: No - Hematological/Oncological Hx Blood Disorders: Yes Hx Anemia: Yes Hx Cancer: Yes (Colon Cancer) Hx Chemotherapy: Yes (PO) - Integumentary Hx Dermatological Disorder: Yes (SCAR MID ABDOMEN SX) - Musculoskeletal/Rheumatological Hx Falls: No - Gastrointestinal Hx Gastrointestinal Disorders: Yes Hx Colostomy: Yes Hx Ileostomy: Yes Other/Comment: Gastritis - Genitourinary/Gynecological Hx Genitourinary Disorders: No - Psychiatric Hx Emotional Abuse: No Hx Physical Abuse: No Hx Substance Use: No - Surgical History Hx Appendectomy: Yes Other/Comment: Colostomy - Anesthesia Hx Anesthesia: Yes Hx Anesthesia Reactions: No Hx Malignant Hyperthermia: No - Suicidal Assessment Feels Threatened In Home Enviroment: No Family/Social History - Physician Review Nursing Documentation Reviewed: Yes Family/Social History: No Known Family HX Smoking Status: Never Smoked Hx Alcohol Use: No Hx Substance Use: No Hx Substance Use Treatment: No Allergies/Home Meds Allergies/Adverse Reactions: Allergies iohexol Allergy (Verified 10/25/18 13:14) URTICARIA iv contrast Allergy (Uncoded 12/10/18 20:52) URTICARIA Home Medications: Home Meds Medication Instructions Recorded Confirmed Gabapentin [Neurontin] 300 mg PO Q6 PRN 12/10/18 12/10/18 oxyCODONE [oxyCODONE Immediate 10 mg PO Q6 PRN 12/10/18 12/10/18 Release Tab] Review of Systems - Physician Review All systems were reviewed & negative as marked: Yes - Review of Systems Constitutional: absent: Fevers, Night Sweats Cardiovascular: absent: Chest Pain Gastrointestinal: Abdominal Pain, Nausea, Vomiting Neurological: absent: Headache, Dizziness Physical Exam Vital Signs Reviewed: Yes Vital Signs Temp Pulse Resp BP Pulse Ox 12/10/18 20:58 98.1 F 99 H 18 102/65 100 Temperature: Afebrile Blood Pressure: Normal Pulse: Tachycardic Respiratory Rate: Normal Appearance: Positive for: Ill-Appearing, Cachectic Pain Distress: Mild Mental Status: Positive for: Alert and Oriented X 3 - Systems Exam Head: Present: Atraumatic, Normocephalic Pupils: Present: PERRL Extroacular Muscles: Present: EOMI Conjunctiva: Present: Normal Mouth: Present: Moist Mucous Membranes Neck: Present: Normal Range of Motion Respiratory/Chest: Present: Clear to Auscultation, Good Air Exchange. No: Respiratory Distress, Accessory Muscle Use Cardiovascular: Present: Regular Rate and Rhythm, Normal S1, S2. No: Murmurs Abdomen: Present: Tenderness (Mild diffuse abdominal tenderness), Ostomy Tubes (Ileostomy to lower abdomen ). No: Distention, Rebound, Guarding Back: Present: Normal Inspection Upper Extremity: Present: Normal Inspection. No: Cyanosis, Edema Lower Extremity: Present: Normal Inspection. No: Edema Neurological: Present: GCS=15, CN II-XII Intact, Speech Normal, Motor Func Grossly Intact, Normal Sensory Function Skin: Present: Warm, Dry, Normal Color. No: Rashes Psychiatric: Present: Alert, Oriented x 3, Normal Insight, Normal Concentration Medical Decision Making ED Course and Treatment: 12/10/18 21:55 Impression: 27 year old female presents with nausea and vomiting. Plan: -- CMP, Lipase, Mg -- CBC, Platelets -- Pepcid -- Zofran -- Reassess and disposition Prior Visits: Notes and results from previous visits were reviewed. Progress Notes: Patient offered a CT scan of the abdomen and pelvis, the patient is refusing a CAT scan of her abdomen and pelvis, states that she has had numerous CAT scans in the past and would prefer not to have one today. 12/10/18 22:30 On reevaluation, patient reports nausea with abdominal pain, which she states is consistent with her postsurgical pain and is not worse than her usual pain, but she is requesting for pain medication to be given to her here in the emergency room. She is given morphine 4 mg IV and Zofran 4 mg IV. 12/10/18 23:45 On second reevaluation, patient reports improvement of abdominal pain yet continues to complain of nausea, she is requesting for dose of Compazine. Compazine p.o. was ordered, however received a phone call from pharmacy stating that the hospital ran out of Compazine. She was offered IV Reglan and Benadryl instead which she did take. Lab results discussed with the patient in great detail. 12/11/18 00:20 On third reevaluation, patient reports improvement of symptoms, patient states that she feels comfortable going home, still is refusing CT of the abdomen and pelvis which was offered to her. She is requesting for a prescription for an antinausea medication to take at home. Advised to follow up with referral physician in 1-2 days without fail. Advised to take medication as prescribed. Return to the emergency room at any time for any new or worsening symptoms. Patient states she fully agrees with and understands discharge instructions. States that she agrees with the plan and disposition. Verbalized and repeated discharge instructions and plan. I have given the patient opportunity to ask any additional questions. - Medication Orders Current Medication Orders: Sodium Chloride (Sodium Chloride 0.9%) 1,000 mls @ 1,000 mls/hr IV .Q1H STA Stop: 12/10/18 22:07 Discontinued Medications Famotidine (Pepcid) 20 mg IVP STAT STA Stop: 12/10/18 21:09 Ondansetron HCl (Zofran Inj) 4 mg IVP STAT STA Stop: 12/10/18 21:09 - PA / AUTO PAINTER / Resident Statement MD/DO has reviewed & agrees with the documentation as recorded. - Scribe Statement The provider has reviewed the documentation as recorded by the Scribe Peter Rj Provider Kwaku Attestation: All medical record entries made by the Kwaku were at my direction and personally dictated by me. I have reviewed the chart and agree that the record accurately reflects my personal performance of the history, physical exam, medical decision making, and the department course for this patient. I have also personally directed, reviewed, and agree with the discharge instructions and disposition. Disposition/Present on Arrival - Present on Arrival Any Indicators Present on Arrival: No History of DVT/PE: No History of Uncontrolled Diabetes: No Urinary Catheter: No History of Decub. Ulcer: No History Surgical Site Infection Following: None - Disposition Have Diagnosis and Disposition been Completed?: Yes Diagnosis: Vomiting Disposition: HOME/ ROUTINE Disposition Time: 00:20 Patient Plan: Discharge Patient Problems: Current Active Problems Problem Status Onset Vomiting Acute Condition: STABLE Discharge Instructions (ExitCare): Nausea and Vomiting, Adult Additional Instructions: Thank you for letting us take care of you today. You were treated for nausea, vomiting. The emergency medical care you received today was directed at your acute symptoms. If you were prescribed any medication, please fill it and take as directed. It may take several days for your symptoms to resolve. Return to the Emergency Department if your symptoms worsen, do not improve, or if you have any other problems. Please contact your doctor in 2 days for re-evaluation and follow up / or call one of the physicians/clinics you have been referred to that are listed on the Patient Visit Information form that is included in your discharge packet. Bring any paperwork you were given at discharge with you along with any medications you are taking to your follow up visit. Our treatment cannot replace ongoing medical care by a primary care provider (PCP) outside of the emergency department. Thank you for allowing the [facility] team to be part of your care today. Prescriptions: Metoclopramide HCl [Reglan] 10 mg PO QID PRN #30 tablet PRN Reason: Nausea/Vomiting [place] [facility] [place] [facility] [place] - Follow up with primary PCP,NO [Primary Care Provider] - Follow up with primary Donna Hatch MD [Staff Provider] - Follow up with primary Forms: [employer] (Occitan)
[2018-12-10 21:51] LABS: BASO # 0.01 K/mm3 (0.0-2.0); BASO % 0.2 % (0.0-3.0); EOS % 0.7 % (1.5-5.0); HEMOGLOBIN 11.9 g/dL (12.0-16.0); LYMPH % 17.6 % (22.0-35.0); MEAN CELL VOLUME 72.1 fl (80.0-105.0); MEAN CORPUSCULAR HEMOGLOBIN 22.4 pg (25.0-35.0); MEAN CORPUSCULAR HGB CONC 31.1 g/dl (31.0-37.0); MONO # 0.4 (0.1-0.6); MONO % 7.6 % (1.0-6.0); PLATELET COUNT 226 10^3/uL (120.0-450.0); RBC 5.31 10^6/uL (3.5-6.1); RED CELL DISTRIBUTION WIDTH 25.2 % (11.5-14.5); WHITE BLOOD COUNT 5.5 10^3/uL (4.5-11.0)
[2018-12-10 22:31] LABS: INR 2.39; PARTIAL THROMBOPLASTIN TIME 40.1 Seconds (26.9-38.3); PROTHROMBIN TIME 26.5 SECONDS (9.4-12.5)
[2018-12-10] MEDS ORDERED: Morphine 4 mg/ml ISec IVP STA (22:34)
[2018-12-10 23:30] LABS: ALBUMIN 3.6 g/dL (3.0-4.8); ALT/SGPT 21 U/L (7-56); AST/SGOT 19 U/L (14-36); BLOOD UREA NITROGEN 13 mg/dL (7-21); CALCIUM 9.9 mg/dL (8.4-10.5); GFR NON-AFRICAN AMERICAN > 60; LIPASE 16 U/L (23-300)
[2018-12-10] MEDS ORDERED: DiphenhydrAMINE 50 mg/ml Inj IVP STA (23:48)
[2018-12-11 03:01] VITALS: BP 102/68; PULSE 94; TEMP 98.2; O2SAT 99
== END 2018-12-11 00:48 | disposition home or self-care (01) ==
LOC: ED 20:30
DX: R11.10 Vomiting, unspecified (principal)
CPT/HCPCS: 80053; 81025; 83690; 83735; 85025; 85610; 85730; 96374; 96375; 96376; 99284; J1200; J1885; J2270; J2405; J2765; J7030